=== PATIENT | male | born 1960 | race Caucasian/White ===

== ENCOUNTER → 2016-09-08 | Outpatient (CLI) | payer BC ==
[~2016-09-08] MED LIST: ACET-749 PO; ALBUAER19 INH; DIPH-437 PO; LVQ750 PO; OPTIRAY 320 IV PRN; VARE1PAK15 PO; VNTHFA/IN INH
[2016-09-08 15:55] LABS: BASO % 0.8 %; BASO ABS # 0.08 K/uL (0-0.2); EOS % 3.6 %; HEMATOCRIT 41.5 % (42-52); IG% 0.3 %; LYMPH % 40.7 %; LYMPH ABS # 3.96 K/uL (1.2-3.4); MEAN CELL VOLUME 85.7 fL (80-100); MEAN CORPUSCULAR HEMOGLOBIN 30.8 pg (25-34); MEAN PLATELET VOLUME 9.8 fL (7.4-10.4); MONO % 6.2 %; NEUT % 48.4 %; PLATELET COUNT 289 K/uL (130-400); RED BLOOD COUNT 4.84 M/uL (4.7-6.1); WHITE BLOOD COUNT 9.72 K/uL (4.8-10.8)
[2016-09-08 16:08] LABS: COMPLETE YES; MEAN CORPUSCULAR HGB CONC 35.9 g/dl (32-36)
[2016-09-08 16:19] LABS: ALB/GLOB RATIO 1.2 (0.9-2); ALKALINE PHOSPHATASE 57 U/L (45-117); ALT/SGPT 44 U/L (12-78); AST/SGOT 19 U/L (15-37); BLOOD UREA NITROGEN 16 mg/dl (7-18); BUN/CREATININE RATIO 20.6 (10-20); CALCIUM 8.8 mg/dl (8.5-10.1); CARBON DIOXIDE 28 mmol/L (21-32); CHLORIDE 104 mmol/L (98-107); CREATININE 0.78 mg/dl (0.60-1.40); GLUCOSE 89 mg/dl (70-99); POTASSIUM 3.8 mmol/L (3.5-5.1); SODIUM 139 mmol/L (136-145)
--- NOTE | 2016-09-08 16:48 | DIAGNOSTIC IMAGING REPORT ---
CT HEAD COMBO CT DOSE: 1074.96 mGy.cm CLINICAL HISTORY: Headache. Dizziness. History of seizure disorder. TECHNIQUE: Axial images of the head were obtained before and after intravenous administration 116 cc of Optiray 320 IV. COMPARISON STUDY: MRI of the brain October 26, [address] May 05, 2014. FINDINGS: No acute intracranial hemorrhage, midline shift or mass effect is present. Ventricular system is normal. Basilar cisterns are patent. There are no extra-axial collections. Slaughter-white differentiation is maintained. There are no findings to suggest acute dural sinus thrombosis or acute territorial infarct. There is moderate mucosal thickening of the sinuses, most pronounced within the ethmoid sinuses. There may be postsurgical findings within the ethmoid sinuses. No intracranial masses or pathologic enhancement is present. No calvarial abnormalities are present. Mastoid air cells are clear. IMPRESSION: 1. No acute intracranial findings. 2. No intracranial mass or pathologic enhancement. 3. Moderate sinus mucosal thickening, most pronounced within the ethmoid sinuses. Electronically signed by: Tal Flores M.D. 09/08/2016 4:47 PM Dictated Date/Time: 09/08/2016 4:43 PM
== END | disposition home or self-care (01) ==
LOC: C.CTS 15:26
PROVIDERS: ATTEND Internal Medicine Pulmonary Disease
DX: R51 Headache (principal); M54.2 Cervicalgia; Z86.69 Personal history of other diseases of the nervous system and sense organs

== ENCOUNTER 2017-02-07 22:06 | Inpatient (IN) | payer BC ==
[~2017-02-07] VITALS: Ht 172.7 cm; Wt 74.6 kg
[~2017-02-07 22:06] MED LIST changes: -LVQ750 PO; -OPTIRAY 320 IV PRN; -VARE1PAK15 PO; -VNTHFA/IN INH
[2017-02-07] MEDS ORDERED: ONDANSETRON INJ 2 MG/ML 2 ML VIAL IV STA (22:33)
[2017-02-07] MEDS ORDERED: NITROGLYCERIN 0.4 MG SL PER TAB CHARGE SL PRN (22:45)
[2017-02-07 22:52] LABS: BASO % 0.7 %; BASO ABS # 0.06 K/uL (0-0.2); COMPLETE YES; EOS % 4.8 %; HEMATOCRIT 42.1 % (42-52); IG% 0.2 %; LYMPH ABS # 4.12 K/uL (1.2-3.4); MEAN CELL VOLUME 87.3 fL (80-100); MEAN CORPUSCULAR HGB CONC 36.6 g/dl (32-36); MEAN PLATELET VOLUME 10.8 fL (7.4-10.4); MONO % 6.4 %; NEUT % 38.9 %; PLATELET COUNT 290 K/uL (130-400); RED BLOOD COUNT 4.82 M/uL (4.7-6.1); WHITE BLOOD COUNT 8.41 K/uL (4.8-10.8)
--- NOTE | 2017-02-07 22:52 | EMERGENCY ROOM VISIT NOTE ---
History Report prepared by Dustin: Raiza Springer Under the Supervision of: Dr. Brett Moreno M.D. First contact with patient: 22:25 Chief Complaint: CHEST PAIN Stated Complaint: CHEST PAIN Nursing Triage Summary: patient to ed via ALS for chest pain, states "it started up around nine, I was just sitting there watching tv and drinking iced tea and it came on all of a sudden. Like an elephant sitting on my chest, its a crushing, sharp pain." Patient took "full strength and baby aspirin", had 3 nitro, 4mg morphine and zofran by ALS, states "it took my pain from a 9 to a 6" denies cardiac hx, hx of COPD History of Present Illness The patient is a 56 year old male who presents to the Emergency Room with complaints of intermittent chest pain beginning 3 hours ago. The patient states that tonight he helped his daughters boyfriend change his breaks and cut the grass before having 3 beers. He reports that he ate dinner and was sitting on the couch when he was watching TV when he suddenly started feeling chest heaviness with intermittent sharp pain. He notes that he was feeling shortness of breath, nausea, and diaphoresis and took his inhaler for COPD and emphysema without relief of his symptoms. He complains of pain radiating to his shoulder and arm and notes that he had no relief with aspirin but did have relief with the nitroglycerin given en route to the hospital. The patient states that his pain is a 6/10 currently and it feels like an elephant is sitting on his chest. The patient denies any fever, chills, cough, congestion, back pain, and heavy lifting. He notes a history of aneurysm and states that his mother and father have extensive heart history. He denies any history of blood clots. Source of History: patient Onset: 3 hours ago Position: chest Quality: sharp, other (heaviness) Timing: intermittent Associated Symptoms: + diaphoresis, + SOB, + nausea, No fevers, No chills, No cough, No back pain Note: Pt complains of arm pain. The patient denies any congestion and heavy lifting. Review of Systems See HPI for pertinent positives and negatives. A total of ten systems were reviewed and were otherwise negative. Past Medical & Surgical Medical Problems: (1) Chest pain at rest (2) COPD (chronic obstructive pulmonary disease) (3) Emphysema (4) No significant past surgical history (5) Right wrist sprain (6) Right wrist sprain Family History Diabetes mellitus Hypertension Social History Smoking Status: Current Every Day Smoker Alcohol Use: occasionally Marital Status: Occupation Status: employed Current/Historical Medications Scheduled Albuterol Hfa (Ventolin Hfa), 2 PUFFS INH QID Scheduled PRN Diphenhydramine-Acetaminophen (Tylenol Pm), 1 TAB PO HS PRN for RESTLESSNESS Allergies Coded Allergies: Oxycodone (Verified Adverse Reaction, Intermediate, ITCHINESS, 02/07/17) Physical Exam Vital Signs Date Time Temp Pulse Resp B/P (MAP) Pulse Ox O2 Delivery O2 Flow Rate FiO2 02/08/17 01:01 36.6 77 19 99/62 94 02/08/17 00:59 77 99/62 94 Room Air 02/08/17 00:05 36.6 67 19 112/72 95 Room Air 02/07/17 22:16 36.7 82 30 122/53 93 Room Air 02/07/17 22:16 93 Room Air 02/07/17 22:16 95 Room Air 02/07/17 22:10 92 Physical Exam GENERAL: Awake, alert, well-appearing, uncomfortable, in no distress HENT: Normocephalic, atraumatic. Mucous membranes dry. EYES: Normal conjunctiva. Sclera non-icteric. NECK: Supple. No nuchal rigidity. FROM. No JVD. RESPIRATORY: Clear to auscultation. CARDIAC: Regular rate, normal rhythm. Extremities warm and well perfused. Pulses equal. ABDOMEN: Soft, non-distended. No tenderness to palpation. No rebound or guarding. No masses. RECTAL: Deferred. MUSCULOSKELETAL: Chest pain is reproducible on palpation on left chest wall. The back is symmetrical on inspection without obvious abnormality. There is no CVA tenderness to palpation. No joint edema. LOWER EXTREMITIES: Calves are equal size bilaterally and non-tender. No edema. No discoloration. Equal pulses NEURO: Normal sensorium. No sensory or motor deficits noted. SKIN: No rash or jaundice noted. Medical Decision & Procedures ER Provider Diagnostic Interpretation: X-ray: Per my interpretation, radiologist review. CHEST ONE VIEW PORTABLE FINDINGS: Cardiomediastinal silhouette normal. Interval development of bibasilar paramediastinal opacities, greater on the right. No large effusion or pneumothorax. Osseous structures normal. Gaseous distention of the stomach. IMPRESSION: 1. Bibasilar opacities could represent aspiration or infection with atelectasis considered less likely. Electronically signed by: Gregory Coleman M.D. 02/07/2017 10:57 PM Dictated Date/Time: 02/07/2017 10:55 PM Laboratory Results 02/07/17 21:42 Red Blood Count 4.82, Mean Corpuscular Volume 87.3, Mean Corpuscular Hemoglobin 32.0, Mean Corpuscular Hemoglobin Concent 36.6, Mean Platelet Volume 10.8, Neutrophils (%) (Auto) 38.9, Lymphocytes (%) (Auto) 49.0, Monocytes (%) (Auto) 6.4, Eosinophils (%) (Auto) 4.8, Basophils (%) (Auto) 0.7, Neutrophils # (Auto) 3.27, Lymphocytes # (Auto) 4.12, Monocytes # (Auto) 0.54, Eosinophils # (Auto) 0.40, Basophils # (Auto) 0.06 02/07/17 21:42 Test 02/07/17 21:42 White Blood Count 8.41 K/uL (4.8-10.8) Red Blood Count 4.82 M/uL (4.7-6.1) Hemoglobin 15.4 g/dL (14.0-18.0) Hematocrit 42.1 % (42-52) Mean Corpuscular Volume 87.3 fL (80-100) Mean Corpuscular Hemoglobin 32.0 pg (25-34) Mean Corpuscular Hemoglobin Concent 36.6 g/dl (32-36) Platelet Count 290 K/uL (130-400) Mean Platelet Volume 10.8 fL (7.4-10.4) Neutrophils (%) (Auto) 38.9 % Lymphocytes (%) (Auto) 49.0 % Monocytes (%) (Auto) 6.4 % Eosinophils (%) (Auto) 4.8 % Basophils (%) (Auto) 0.7 % Neutrophils # (Auto) 3.27 K/uL (1.4-6.5) Lymphocytes # (Auto) 4.12 K/uL (1.2-3.4) Monocytes # (Auto) 0.54 K/uL (0.11-0.59) Eosinophils # (Auto) 0.40 K/uL (0-0.5) Basophils # (Auto) 0.06 K/uL (0-0.2) RDW Standard Deviation 39.2 fL (36.4-46.3) RDW Coefficient of Variation 12.3 % (11.5-14.5) Immature Granulocyte % (Auto) 0.2 % Immature Granulocyte # (Auto) 0.02 K/uL (0.00-0.02) Erythrocyte Sedimentation Rate 2 mm/hr (0-14) Anion Gap 12.0 mmol/L (3-11) Est Creatinine Clear Calc Drug Dose 104.7 ml/min Estimated GFR () 118.6 Estimated GFR (Non- 102.3 BUN/Creatinine Ratio 12.2 (10-20) Calcium Level 9.2 mg/dl (8.5-10.1) C-Reactive Protein < 0.29 mg/dl (0-0.29) Laboratory results reviewed by me Medications Administered Medications (Trade) Dose Ordered Sig/Jasmyn Route Start Time Stop Time Status Last Admin Dose Admin Nitroglycerin (Nitrostat Tab) 0.4 mg Q5M PRN SL 02/07/17 22:45 02/08/17 00:33 DC 02/07/17 22:43 0.4 MG Ondansetron HCl (Zofran Inj) 4 mg NOW STAT IV 02/07/17 22:33 02/07/17 22:34 DC 02/07/17 22:43 4 MG Sodium Chloride 1,000 ml @ 999 mls/hr Q1H1M STAT IV 02/07/17 23:26 02/08/17 00:26 DC 02/07/17 23:42 999 MLS/HR Morphine Sulfate (MoRPHine SULFATE INJ) 2 mg NOW STAT IV 02/08/17 00:16 02/08/17 00:17 DC 02/08/17 00:24 2 MG Nitroglycerin/ Dextrose 250 ml @ 0 mls/hr Q0M IV 02/08/17 00:30 03/10/17 00:29 02/08/17 01:54 6 MLS/HR Lactated Ringer's 1,000 ml @ 125 mls/hr Q8H IV 02/08/17 01:00 02/09/17 00:59 02/08/17 01:49 125 MLS/HR ECG Indication: chest pain Rate (beats per minute): 81 Rhythm: normal sinus Findings: no acute ischemic change, other (normal axis) Comparison ECG Date: 12/03/14 Change: no significant change ED Course 5: The patient was evaluated in room B10. A complete history and physical exam was performed. 2233: Zofran Inj 4mg IV. 5: Nitroglycerin 0.4mg PRN SL Chest pain. 6: Sodium Chloride 1000 ml @ 999 mls/hr IV. 0002: Discussed the patient's case [place]za [place] [facility] [place] The patient will be evaluated for further treatment and disposition. 0010: Upon reexamination, the patient was doing well. I discussed the test results and treatment plan with the patient. The patient will be evaluated for further management. Medical Decision I reviewed the patient's past medical history, medications, and the nursing notes as described above. Differential diagnosis includes ACS, PE, pneumonia, bronchitis, costochondritis , pericarditis. Patient is a 56-year-old gentleman with a past medical history of smoking and COPD presents to emergency department with acute onset chest pain or sensation of heaviness in his left chest starting around 9 PM per history of present illness. Upon arrival the patient appears mildly uncomfortable but reports improvement of his pain after receiving nitroglycerin and aspirin by EMS. Otherwise the patient is afebrile with stable vital signs. Denies any recent illness, fevers chills cough congestion. EKG was unremarkable without signs of acute ischemia. Negative Spotick sign. Troponin negative 1. WBC within normal limits. Chest x-ray likely atelectasis in the setting of the patient being afebrile with normal WBC. During the patient's age story and risk factors he is a heart score 4 with moderate risk and thus the patient was admitted for ACS rule out. Patient admitted to medicine service. Medication Reconcilliation Current Medication List: was personally reviewed by [place] Blood Pressure Screening Patient's blood pressure: Normal blood pressure Blood pressure disposition: Did not require urgent referral Consults Time Called: 1714 Consulting Physician: Dr. Souza - [facility] [place]ed Call: 1 Discussed the patient's case with [place]. Souza [place] [facility] [place] [place] The patient will be evaluated for further treatment and disposition. Impression Primary Impression: Left sided chest pain Scribe Attestation The scribe's documentation has been prepared under my direction and personally reviewed by me in its entirety. I confirm that the note above accurately reflects all work, treatment, procedures, and medical decision making performed by me. Departure Information Dispostion Being Evaluated By Hospitalist Referrals Blayne Machado M.D. (PCP) Patient Instructions My [facility]
--- NOTE | 2017-02-07 22:58 | DIAGNOSTIC IMAGING REPORT ---
CHEST ONE VIEW PORTABLE CLINICAL HISTORY: 56 years-old Male presenting with CHEST PAIN. TECHNIQUE: Portable upright AP view of the chest was obtained. COMPARISON: 03/13/2012. FINDINGS: Cardiomediastinal silhouette normal. Interval development of bibasilar paramediastinal opacities, greater on the right. No large effusion or pneumothorax. Osseous structures normal. Gaseous distention of the stomach. IMPRESSION: 1. Bibasilar opacities could represent aspiration or infection with atelectasis considered less likely. Electronically signed by: Gregory Coleman M.D. 02/07/2017 10:57 PM Dictated Date/Time: 02/07/2017 10:55 PM
[2017-02-07] MEDS ORDERED: VNTHFA/IN INH (23:00)
[2017-02-07 23:19] LABS: BLOOD UREA NITROGEN 9 mg/dl (7-18); BUN/CREATININE RATIO 12.2 (10-20); CALCIUM 9.2 mg/dl (8.5-10.1); CARBON DIOXIDE 24 mmol/L (21-32); CHLORIDE 107 mmol/L (98-107); CREATININE 0.78 mg/dl (0.60-1.40); GLUCOSE 105 mg/dl (70-99); POTASSIUM 3.6 mmol/L (3.5-5.1); SODIUM 143 mmol/L (136-145)
[2017-02-07] MEDS ORDERED: SODIUM CHLORIDE 0.9% 1000ML 1,000 ML IV STA (23:26)
[2017-02-08] VITALS (19 sets, daily range): BP systolic 95–119; BP diastolic 63–78; PULSE 61–78; TEMP 36.5–36.9; O2SAT 91–98; Ht 172.7 cm; Wt 74.6 kg
[2017-02-08] MEDS ORDERED: MoRPHine SULFATE 2 MG/ML CARP IV STA (00:16)
[2017-02-08] MEDS ORDERED: MoRPHine SULFATE 2 MG/ML CARP IV PRN ×3 (00:30→16:30)
[2017-02-08] MEDS ORDERED: ACETAMINOPHEN 325 MG TAB PO PRN (00:30)
[2017-02-08] MEDS ORDERED: POLYETHYLENE (MIRALAX) 17 GM PACK PO PRN (00:30)
[2017-02-08] MEDS ORDERED: NITROGLYCERIN/D5W 100 MCG/ML 250 ML IV SCH (00:30)
[2017-02-08] MEDS ORDERED: NITROGLYCERIN 0.4 MG SL PER TAB CHARGE SL PRN (00:30)
[2017-02-08] MEDS ORDERED: ONDANSETRON INJ 2 MG/ML 2 ML VIAL IV PRN (00:30)
[2017-02-08] MEDS ORDERED: ALUMINUM/MAGNESIUM/SIMETH (MAALOX MAX) 30 ML UDC PO PRN (00:30)
[2017-02-08] MEDS ORDERED: MAGNESIUM HYDROXIDE SUSP 30 ML UDC PO PRN (00:30)
[2017-02-08 00:45] LABS: C-REACTIVE PROTEIN < 0.29 mg/dl (0-0.29)
[2017-02-08] MEDS ORDERED: NITROGLYCERIN OINT 2% 1GM PACKET EXT STA (00:47)
--- NOTE | 2017-02-08 00:53 | History and Physical ---
History & Physical Date & Time of Service: Feb 08, 2017 at 00:35 Chief Complaint: Chest Pain Primary Care Physician: Blayne Machado M.D. History of Present Illness Source: patient, spouse Mr Nicholas is a 56 yo M, with significant family hx of cardiac disease and is an active smoker x 40 years, who presents with sudden onset chest pain around 8:30 pm (4 hours ago). 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 Later in the evening, he was sitting at home watching TV and noticed chest pain occurred suddenly, on the left side of his chest, and went down his left arm. He felt nauseated but did not vomit. He had two aspirin and did not feel relief. He called the ambulance, who gave him nitro and his pain was better. Currently, his pain is recurring and severe. He describes it as something laying on his chest. He feels like he is in agony. He was given 2mg morphine and feels somewhat better. He denies any pain radiating to the back. He has COPD but does not feel short of breath. Past Medical/Surgical History Medical Problems: (1) COPD (chronic obstructive pulmonary disease) Status: Chronic (2) Emphysema Status: Chronic (3) No significant past surgical history Status: Resolved (4) Right wrist sprain Status: Resolved (5) Right wrist sprain Status: Resolved Family History Diabetes mellitus Hypertension Strong FHx of cardiac disease - father had quadruple bypass, mother 5 y ago from massive [place] Social History Smoking Status: Current Every Day Smoker (.5-1 pack per day) Marital Status: Occupational Status: employed Immunizations History of Influenza Vaccine: No History of Tetanus Vaccine?: Yes Tetanus Immunization Date: Dec 18, 2008 History of Pneumococcal: No History of Hepatitis B Vaccine: Unknown Hepatitis Immunization Date: Jan 11, 1991 Multi-Drug Resistant Organisms History of MDRO: Yes Type of MDRO: MRSA Allergies Coded Allergies: Oxycodone (Verified Adverse Reaction, Intermediate, ITCHINESS, 02/07/17) Home Medications Scheduled Albuterol Hfa (Ventolin Hfa), 2 PUFFS INH QID Scheduled PRN Diphenhydramine-Acetaminophen (Tylenol Pm), 1 TAB PO HS PRN for RESTLESSNESS Review of Systems See HPI for pertinent positives & negatives. A total of 10 systems reviewed and were otherwise negative. Physical Exam Vital Signs Date Time Temp Pulse Resp B/P (MAP) Pulse Ox O2 Delivery O2 Flow Rate FiO2 02/08/17 00:05 36.6 67 19 112/72 95 Room Air 02/07/17 22:16 36.7 82 30 122/53 93 Room Air 02/07/17 22:16 93 Room Air 02/07/17 22:16 95 Room Air 02/07/17 22:10 92 General Appearance: WD/WN, + moderate distress Head: normocephalic, atraumatic Eyes: normal inspection, PERRL ENT: hearing grossly normal Neck: supple, no JVD Respiratory/Chest: lungs clear, normal breath sounds, no respiratory distress Cardiovascular: regular rate, rhythm, no murmur, normal peripheral pulses Abdomen/GI: non tender, soft Back: no CVA tenderness, no muscle spasm Extremities/Musculoskelatal: no calf tenderness, no pedal edema Neurologic/Psych: alert, normal mood/affect, oriented x 3 Skin: no rash Diagnostics Laboratory Results Results Past 24 Hours Test 02/07/17 21:42 02/08/17 00:28 Range/Units White Blood Count 8.41 4.8-10.8 K/uL Red Blood Count 4.82 4.7-6.1 M/uL Hemoglobin 15.4 14.0-18.0 g/dL Hematocrit 42.1 42-52 % Mean Corpuscular Volume 87.3 80-100 fL Mean Corpuscular Hemoglobin 32.0 25-34 pg Mean Corpuscular Hemoglobin Concent 36.6 32-36 g/dl Platelet Count 290 130-400 K/uL Mean Platelet Volume 10.8 7.4-10.4 fL Neutrophils (%) (Auto) 38.9 % Lymphocytes (%) (Auto) 49.0 % Monocytes (%) (Auto) 6.4 % Eosinophils (%) (Auto) 4.8 % Basophils (%) (Auto) 0.7 % Neutrophils # (Auto) 3.27 1.4-6.5 K/uL Lymphocytes # (Auto) 4.12 1.2-3.4 K/uL Monocytes # (Auto) 0.54 0.11-0.59 K/uL Eosinophils # (Auto) 0.40 0-0.5 K/uL Basophils # (Auto) 0.06 0-0.2 K/uL RDW Standard Deviation 39.2 36.4-46.3 fL RDW Coefficient of Variation 12.3 11.5-14.5 % Immature Granulocyte % (Auto) 0.2 % Immature Granulocyte # (Auto) 0.02 0.00-0.02 K/uL Sodium Level 143 136-145 mmol/L Potassium Level 3.6 3.5-5.1 mmol/L Chloride Level 107 98-107 mmol/L Carbon Dioxide Level 24 21-32 mmol/L Anion Gap 12.0 3-11 mmol/L Blood Urea Nitrogen 9 7-18 mg/dl Creatinine 0.78 0.60-1.40 mg/dl Est Creatinine Clear Calc Drug Dose 104.7 ml/min Estimated GFR () 118.6 Estimated GFR (Non- 102.3 BUN/Creatinine Ratio 12.2 10-20 Random Glucose 105 70-99 mg/dl Calcium Level 9.2 8.5-10.1 mg/dl Troponin I < 0.015 0-0.045 ng/ml Diagnostic Radiology CXR IMPRESSION: 1. Bibasilar opacities could represent aspiration or infection with atelectasis considered less likely. EKG SR, 61bpm - NO ST elevation Mild ST dep in inferior leads - was present on arrival and in 2014 Impression Assessment and Plan 56 yo M with severe L sided chest pain. DDx of his chest pain would include: severe COPD exacerbation, but this is unlikely as he is not hypoxic, PE - though he is not hypoxic or tachypneic and has no other risk factors, or dissection - his pulses are equal, and pain does not radiate to the back. With FHx, smoking, and characteristics of pain, will treat as NSTEMI for now, with low threshold to call heart alert if chest pain does not improve. Unstable angina - Received aspirin en route - Received nitro SL en route - Will start on Nitro drip, aiming to get him chest pain free - 2mg IV Morphine q1h - Heparin drip - [place] [facility] [place] 12:40 pm - EKG in AM - Echo in AM - Trend cardiac enzymes - Due to Nitro drip requiring titration, pt to be admitted to ICU. OSWALDO Ventura, informed. IF PATIENT HAS PERSISTENT CHEST PAIN, PLEASE NOTIFY A PROVIDER pager [phone] COPD - Duonebs - Smoking cessation consult VTE: Heparin drip CODE STATUS: Full DISPO: ICU Resident Physician Supervision Note: I was present with Dr. Joseph during the history and exam. I discussed the case with the resident and agree with the findings and plan as documented in the note. Any exceptions or clarifications are listed here: 56 y/o M Hx COPD - smoker - family Hx CAD. Pt presents with persistent severe L CP OE AAO x 3 S1,2 R CTAB NT, ND No CCE P: Placed on full dose anticoagulation, ASA - second trop pending - initial EKG is not consistent with a STEMI Cardio contacted and pt transferred to ICU on NTG drip If pain does not resolve pt may need an urgent cath Documented By: Jayce Souza Level of Care Telemetry Resuscitation Status FULL RESUSCITATION VTE Prophylaxis VTE Risk Assessment Done? Y/N: Yes Risk Level: Moderate Given or contraindicated: Other Anticoagulation Resident Tracking Resident Involvement: Resident Care Provided Care Provided: Adult Hospital Medicine
[2017-02-08] MEDS ORDERED: HEPARIN 25,000 UNIT/500ML D5W 500 ML IV PRN (01:00)
--- NOTE | 2017-02-08 01:19 | Critical Care Consultation ---
Critical Care Consultation Date of Consultation: Feb 08, 2017. Attending Physician: Dr. Jayce Souza Reason for Consultation: Intermittent severe chest pain requiring titration of nitroglycerin infusion History of Present Illness Franklin Nicholas is a 56-year-old male whose presented to the emergency department this morning for 10 out of 10 chest pain radiating down his left arm into his wrist and complaining of bouts of chest tightness and increasing pressure. Per him this started about 8:30; he states he was able to time this according to a TV show. During this time he did take both a baby aspirin and a Ana aspirin prior to arrival. He states he has a significant past medical history of a mother, maternal grandfather, and multiple paternal grandparents with either coronary artery disease causing bypass grafting or massive myocardial infarctions causing . He himself has never been diagnosed with diabetes in fact suffers from hypoglycemia at times. He does have a 1/2-1 pack per day history for approximately 40 years. He denies any prior chest pain similar to tonight or any other cardiac history for himself. Pt denies pain changing or increasing with breathing. No calf pain or recent periods of immobility. Per him he has never been diagnosed with hypertension, but does follow with Dr. Machado in Pulmonary Medicine for COPD/emphysema requiring Ventolin inhaler. He states that he has at some point failed breathing exams at work for respirators. He does state that he has undergone breathing exams with his physician. No recent PFTs on file, last noted in 2012. CXR in ED demonstrated what appears to be early onset bilateral consolidation in lower lung gil. Patient states that in the emergency department he received nitroglycerin which helped to lessen his chest pain and pressure. Upon my visit he states his severity is a 3 out of 10; however, he states that he feels the pressure returning. During my examination his nitroglycerin infusion had just been started. When pt demonstrates to me that his heart hurts and he grabs for the superior aspect of his thorax. Chest in that area is tender, but does not elicit the same pain. His past medical history is significant for a prior seizure disorder with no ongoing symptoms/treatment, an unusual tumor of the spinal cord, and prior sinus thrombosis. Patient was last seen in August and was encouraged by backup sawyer to visit with Dr. Stewart for neuro followup. Patient denies fever, chills, malaise, dizziness/lightheadedness. Patient denies cough, difficulty breathing, shortness of breath, ongoing nausea. However he does state that when his pain was 10 out of 10 he felt nauseous but did not vomit. He denies GI upset or change in bowel or bladder habits. Past Medical/Surgical History Medical Problems: COPD (chronic obstructive pulmonary disease) Emphysema No significant past surgical history Right wrist sprain History of prior seizure disorder History of spinal tumor History of sinus thrombosis Neck pain Chronic sinusitis Headache Muscle spasm History of concussion without loss of consciousness History of herpes zoster History of MRSA History of cellulitis of the rectum Past surgical history History of biopsy of the spinal cord History of knee incision and drainage of infected bursa History of open treatment of clavicular fracture History of colonoscopy and EGD Family History Diabetes mellitus Hypertension Strong family history of coronary artery disease, bypass grafting, myocardial infarction Social History Smoking Status: Current Every Day Smoker (.5-1 pack per day x 40yrs) Alcohol Use: socially (patient estimates approximate 6 pack per month) Marital Status: Housing Status: lives with family Occupation Status: employed Allergies Coded Allergies: Oxycodone (Verified Adverse Reaction, Intermediate, ITCHINESS, 02/07/17) Home Medications Scheduled Albuterol Hfa (Ventolin Hfa), 2 PUFFS INH QID Scheduled PRN Diphenhydramine-Acetaminophen (Tylenol Pm), 1 TAB PO HS PRN for RESTLESSNESS Current Inpatient Medications Current Inpatient Medications Medications (Trade) Dose Ordered Sig/Jasmyn Route Start Time Stop Time Status Last Admin Dose Admin Acetaminophen (Tylenol Tab) 650 mg Q4H PRN PO 02/08/17 00:30 03/10/17 00:29 Al Hydrox/Mg Hydrox/Simethicone (Maalox Max Susp) 15 ml Q4H PRN PO 02/08/17 00:30 03/10/17 00:29 Magnesium Hydroxide (Milk Of Magnesia Susp) 30 ml Q12H PRN PO 02/08/17 00:30 03/10/17 00:29 Ondansetron HCl (Zofran Inj) 4 mg Q6H PRN IV 02/08/17 00:30 03/10/17 00:29 Nitroglycerin (Nitrostat Tab) 0.4 mg UD PRN SL 02/08/17 00:30 03/10/17 00:29 Nitroglycerin (Nitroglycerin 2% Oint) 1 inch Q6 EXT 02/08/17 06:00 03/10/17 05:59 UNV Polyethylene (Miralax Powder Packet) 17 gm DAILY PRN PO 02/08/17 00:30 03/10/17 00:29 Heparin Sodium/ Dextrose 1 ea NOW STAT N/A 02/08/17 00:30 02/08/17 00:31 UNV Nitroglycerin/ Dextrose 250 ml @ 0 mls/hr Q0M IV 02/08/17 00:30 03/10/17 00:29 Heparin Sodium/ Dextrose 500 ml @ 25 mls/hr Q20H PRN IV 02/08/17 01:00 03/10/17 00:59 Albuterol (Ventolin Hfa Inhaler) 2 puffs QID INH 02/08/17 09:00 03/10/17 08:59 UNV Morphine Sulfate (MoRPHine SULFATE INJ) 2 mg Q1H PRN IV 02/08/17 01:00 02/22/17 00:59 Lactated Ringer's 1,000 ml @ 125 mls/hr Q8H IV 02/08/17 01:00 02/09/17 00:59 Albuterol/ Ipratropium (Duoneb) 3 ml QIDR INH 02/08/17 08:00 03/10/17 07:59 UNV Review of Systems 12 systems reviewed and negative other than previously mentioned in the HPI. Physical Exam Date Time Temp Pulse Resp B/P (MAP) Pulse Ox O2 Delivery O2 Flow Rate FiO2 02/08/17 01:01 36.6 77 19 99/62 94 02/08/17 00:59 77 99/62 94 Room Air 02/08/17 00:05 36.6 67 19 112/72 95 Room Air 02/07/17 22:16 36.7 82 30 122/53 93 Room Air 02/07/17 22:16 93 Room Air 02/07/17 22:16 95 Room Air 02/07/17 22:10 92 Vital Signs - as noted Laboratory Data - as noted Physical Exam: General - NAD, Resting in bed and speaking easily to me Eyes - PERRL, EOMI No icterus, gaze conjugate ENT - Mucosa moist, no lesions or candidiasis Neck - Supple, trachea midline, no masses or lymphadenopathy, no JVD or bruits Lungs - No paradoxical chest wall movement, clear to auscultation bilaterally, diminished in lower left lung gil without wheezes, rales, or rhonchi Heart - Reg rate and rhythm, No murmur, rubs, clicks, or gallops appreciated Abdomen - BS present, no bruits noted, tympanic to percussion, soft, nontender, nondistended, no organomegaly Extremities - No edema, pedal pulses intact Neuro - A&O x 4 Strength extremities equal and appropriate bilaterally Reflexes: Normal and equal CN:PERRL, EOMI, no facial asymmetry, uvula/tongue midline Laboratory Results Last 24 Hours Test 02/07/17 21:42 White Blood Count 8.41 K/uL Red Blood Count 4.82 M/uL Hemoglobin 15.4 g/dL Hematocrit 42.1 % Mean Corpuscular Volume 87.3 fL Mean Corpuscular Hemoglobin 32.0 pg Mean Corpuscular Hemoglobin Concent 36.6 g/dl Platelet Count 290 K/uL Mean Platelet Volume 10.8 fL Neutrophils (%) (Auto) 38.9 % Lymphocytes (%) (Auto) 49.0 % Monocytes (%) (Auto) 6.4 % Eosinophils (%) (Auto) 4.8 % Basophils (%) (Auto) 0.7 % Neutrophils # (Auto) 3.27 K/uL Lymphocytes # (Auto) 4.12 K/uL Monocytes # (Auto) 0.54 K/uL Eosinophils # (Auto) 0.40 K/uL Basophils # (Auto) 0.06 K/uL RDW Standard Deviation 39.2 fL RDW Coefficient of Variation 12.3 % Immature Granulocyte % (Auto) 0.2 % Immature Granulocyte # (Auto) 0.02 K/uL Sodium Level 143 mmol/L Potassium Level 3.6 mmol/L Chloride Level 107 mmol/L Carbon Dioxide Level 24 mmol/L Anion Gap 12.0 mmol/L Blood Urea Nitrogen 9 mg/dl Creatinine 0.78 mg/dl Est Creatinine Clear Calc Drug Dose 104.7 ml/min Estimated GFR () 118.6 Estimated GFR (Non- 102.3 BUN/Creatinine Ratio 12.2 Random Glucose 105 mg/dl Calcium Level 9.2 mg/dl Troponin I < 0.015 ng/ml C-Reactive Protein < 0.29 mg/dl Diagnostic Results CHEST ONE VIEW PORTABLE CLINICAL HISTORY: 56 years-old Male presenting with CHEST PAIN. TECHNIQUE: Portable upright AP view of the chest was obtained. COMPARISON: 03/13/2012. FINDINGS: Cardiomediastinal silhouette normal. Interval development of bibasilar paramediastinal opacities, greater on the right. No large effusion or pneumothorax. Osseous structures normal. Gaseous distention of the stomach. IMPRESSION: 1. Bibasilar opacities could represent aspiration or infection with atelectasis considered less likely. Electronically signed by: Gregory Coleman M.D. 02/07/2017 10:57 PM Dictated Date/Time: 02/07/2017 10:55 PM Assessment & Plan (1) Chest pain at rest (2) Emphysema Reason Critically Ill: Patient is an 56-year-old male who is transferred to the ICU for intractable chest pain with negative troponin and unremarkable EKG on Nitroglycerin & Heparin Infusions. PLAN: Neuro: * Pain severity currently decreased from 04/18-3/10 * Titrate Nitroglycerin as blood pressure allows with increasing pain * A&O x 4, no unilateral neurologic changes noted * Monitor for change * Pt wish for help with tobacco addiction CV: * Significant family medical history; patient without prior cardiac history * Dr. Bynum consulted and spoke with Dr. Souza * Low threshold to recontact Dr. Bynum for increasing chest pain or changes * Nitroglycerin drip to titrate to pain level * Heparin infusion started per Dr. Bynum recommendation * Echo ordered for AM * EKG with changes in chest pain * Trend troponin; Negative x 2 * Monitor on telemetry Resp: * Supplemental oxygen as required * Wells Criteria 3points, Unlikely PE * Will order Venous Duplex of Lower Extremities; Pt currently being treated with Heparin Infusion * No "pleuritic" aspect to chest pain, tachycardia, dyspnea, cough or recent immobilities. * DuoNeb and Ventolin in place * Patient currently without signs/symptoms of infective pulmonary process * Will hold broad-spectrum antibiotics currently * Procalcitonin pending Fluids/Renal: * Lactated Ringer's @ 125mLd/Hr * Monitor I's and O's * Replete electrolytes as indicated ID: * Chest x-ray as noted above * Follow closely for possible need of antibiotics * Procalcitonin pending * No leukocytosis or fever GI/Nutrition: * Nausea reported with chest pain * Zofran PRN * NPO except ice chips Heme: * H&H; platelets stable * No gross signs of bleeding * Monitor anticoagulation per heparin drip protocol * SCDs Ordered Endocrine: * No known diagnosis of diabetes or thyroid disorder * Will check TSH with morning labs * Accu-Checks per protocol, started insulin infusion for 2 blood sugars greater than 180 CCT: 37 Minutes; This time is exclusive of all separately billable procedures. Thank you for involving us in the care of this patient. Please refer to Dr. Cresencio Espinal's addendum for further recommendations. I have personally evaluated and examined this patient. I agree with assessment and plan of Ev Husain PA-C. Reviewed on rounds this morning, negative troponins 3. Down titrated nitroglycerin, return of pain, checked EKG unchanged. Doubt cardiac ischemia echo performed awaiting formal report. Obtain CT scan chest to rule out aortic dissection, patient reports pain radiated into back. Found evidence suggestive of community-acquired pneumonia and probable pleuritic chest pain. Stable for downgraded out of ICU to regular nursing floor
[2017-02-08] MEDS: LACTATED RINGER'S 1000ML 1,000 ML IV SCH ×2 (01:49→08:59)
[2017-02-08] MEDS: NITROGLYCERIN OINT 2% 1GM PACKET EXT SCH ×3 (02:00→12:38)
[2017-02-08 02:55] LABS: PROTHROMBIN TIME (PATIENT) 10.9 SECONDS (9.0-12.0)
[2017-02-08] MEDS ORDERED: NICOTINE 7 MG/24 HR TDSY TD SCH (04:00)
[2017-02-08 06:32] LABS: MEAN CELL VOLUME 88.8 fL (80-100); MEAN CORPUSCULAR HEMOGLOBIN 30.6 pg (25-34); MEAN CORPUSCULAR HGB CONC 34.5 g/dl (32-36); MEAN PLATELET VOLUME 10.3 fL (7.4-10.4); PLATELET COUNT 244 K/uL (130-400); RED BLOOD COUNT 4.28 M/uL (4.7-6.1); WHITE BLOOD COUNT 8.01 K/uL (4.8-10.8)
[2017-02-08 06:46] LABS: BLOOD UREA NITROGEN 11 mg/dl (7-18); BUN/CREATININE RATIO 15.2 (10-20); CALCIUM 8.3 mg/dl (8.5-10.1); CARBON DIOXIDE 26 mmol/L (21-32); CHLORIDE 111 mmol/L (98-107); GLUCOSE 118 mg/dl (70-99); MAGNESIUM 2.2 mg/dl (1.8-2.4); POTASSIUM 3.7 mmol/L (3.5-5.1); SODIUM 142 mmol/L (136-145)
[2017-02-08 06:49] LABS: ESTIMATED AVERAGE GLUCOSE 114 mg/dl; HA1C FLAG Normal (Normal)
[2017-02-08 06:58] LABS: CHOLESTEROL 115 mg/dl (0-200); CHOLESTEROL/HDL RATIO 5.2; HDL CHOLESTEROL 22 mg/dl; LDL CHOLESTEROL CALCULATED 29 mg/dl; PHOSPHORUS 2.8 mg/dl (2.5-4.9); TRIGLYCERIDES 319 mg/dl (0-150); VERY LOW DENSITY LIPOPROT CALC 64 mg/dl
[2017-02-08] MEDS ORDERED: ALBUT/IPRATROP 3MG/0.5MG NEB 3 ML VIAL INH SCH (08:00)
--- NOTE | 2017-02-08 08:50 | ECHOCARDIOGRAM REPORT ---
*NOTICE TO RECEIVING DEMOCRAT AGENCY This information is strictly Confidential and protected under [place] law. [place] law prohibits you from making any further disclosure of this information unless further disclosure is expressly permitted by the written consent of the person to whom it pertains or is authorized by law. A general authorization for the release of medical or other information is not sufficient for this purpose. Hospital accepts no responsibility if the information is made available to any other person, INCLUDING THE PATIENT. Interpretation Summary * Name: FESTUS OCONNELL Study Date: 02/08/2017 06:25 AM BP: 106/64 mmHg * Patient Location: .[facility]\S\E105\S\1 HR: 75 * : 1960 (M/d/yyyy) Gender: Male Height: 68 in * Age: 56 yrs Ethnicity: CA Weight: 160 lb * Ordering Physician: Leslee Joseph * Referring Physician: Self, Referred * Performed By: Caitlin Singer RDCS * * Reason For Study: CHEST PAIN * BSA: 1.9 m2 * -- Conclusions -- * 1. Normal left ventricular size and systolic function. EF 60-65%. No regional wall motion abnormalities. No left ventricular hypertrophy. Type 2 diastolic dysfunction. * 2. No significant valvular abnormalities. * 3. No prior study available for comparison. Procedure Details * A complete two-dimensional transthoracic echocardiogram was performed (2D, M-mode, Doppler and color flow Doppler). Left Ventricle * The left ventricle is normal in size. * There is normal left ventricular wall thickness. * Ejection Fraction = 60-65%. * Left ventricular systolic function is normal. * No regional wall motion abnormalities noted. Right Ventricle * The right ventricle is normal in size and function. * The right ventricular systolic function is normal as assessed by tricuspid annular plane systolic excursion (TAPSE) (normal >1.5 cm). Atria * The left atrial size is normal. * Right atrial size is normal. * There is no evidence of atrial septal defect, but resolution does not allow assessment for a patent foramen ovale. Mitral Valve * The mitral valve leaflets appear normal. There is no evidence of stenosis, fluttering, or prolapse. * There is trace mitral regurgitation. Tricuspid Valve * The tricuspid valve is not well visualized, but is grossly normal. * There is no tricuspid stenosis. * Significant tricuspid regurgitation is absent. Aortic Valve * The aortic valve is normal in structure and function. * The aortic valve is trileaflet. * No hemodynamically significant valvular aortic stenosis. * No aortic regurgitation is present. Pulmonic Valve * The pulmonary valve is inadequately visualized, but the Doppler data is adequate for interpretation. * There is no pulmonic valvular stenosis. * There is no significant pulmonary regurgitation. Great Vessels * The aortic root is normal size. * Aortic arch of normal dimension. Pericardium/Pleural * There is no pericardial effusion. Great Vessels * Normal inferior vena cava size and collapsability with sniff indicates a normal right atrial pressure of 3 mmHg MMode 2D Measurements and Calculations IVSd 0.99 cm IVSs 1.4 cm LVIDd 4.7 cm LVIDs 3.2 cm LVPWd 0.91 cm LVPWs 1.5 cm IVS/LVPW 1.1 FS 32.7 % EDV(Teich) 101.9 ml ESV(Teich) 39.7 ml EF(Teich) 61.0 % EDV(cubed) 103.2 ml ESV(cubed) 31.5 ml EF(cubed) 69.5 % % IVS thick 38.3 % % LVPW thick 67.2 % LV mass(C)d 153.7 grams LV mass(C)dI 82.7 grams/m\S\2 LV mass(C)s 159.6 grams LV mass(C)sI 85.9 grams/m\S\2 SV(Teich) 62.2 ml SI(Teich) 33.5 ml/m\S\2 SV(cubed) 71.7 ml SI(cubed) 38.6 ml/m\S\2 Ao root diam 3.4 cm Ao root area 9.2 cm\S\2 LA dimension 3.1 cm asc Aorta Diam 3.3 cm LA/Ao 0.92 LVAd ap4 33.0 cm\S\2 LVLd ap4 8.3 cm EDV(MOD-sp4) 107.4 ml EDV(sp4-el) 111.6 ml LVAs ap4 17.8 cm\S\2 LVLs ap4 6.8 cm ESV(MOD-sp4) 41.0 ml ESV(sp4-el) 39.5 ml EF(MOD-sp4) 61.8 % EF(sp4-el) 64.6 % LVAd ap2 31.7 cm\S\2 LVLd ap2 8.7 cm EDV(MOD-sp2) 93.4 ml EDV(sp2-el) 98.1 ml LVAs ap2 17.3 cm\S\2 LVLs ap2 7.1 cm ESV(MOD-sp2) 37.1 ml ESV(sp2-el) 35.9 ml EF(MOD-sp2) 60.3 % EF(sp2-el) 63.4 % LVLd %diff 2.8 % EDV(MOD-bp) 101.9 ml LVLs %diff 6.4 % ESV(MOD-bp) 38.9 ml EF(MOD-bp) 61.8 % SV(MOD-sp4) 66.4 ml SI(MOD-sp4) 35.7 ml/m\S\2 SV(MOD-sp2) 56.3 ml SI(MOD-sp2) 30.3 ml/m\S\2 SV(MOD-bp) 63.0 ml SI(MOD-bp) 33.9 ml/m\S\2 SV(sp4-el) 72.1 ml SI(sp4-el) 38.8 ml/m\S\2 SV(sp2-el) 62.2 ml SI(sp2-el) 33.4 ml/m\S\2 Doppler Measurements and Calculations MV E max paula 68.4 cm/sec MV A max paula 54.3 cm/sec MV E/A 1.3 MV dec time 0.25 sec Ao V2 max 107.7 cm/sec Ao max PG 4.6 mmHg Ao max PG (full) 0.50 mmHg LV V1 max PG 4.1 mmHg LV V1 max 101.7 cm/sec TV E max paula 70.0 cm/sec PA V2 max 62.8 cm/sec PA max PG 1.6 mmHg
[2017-02-08] MEDS: ALBUTEROL HFA 8 GM INHALER INH SCH ×2 (08:59→12:34)
[2017-02-08] MEDS: ACETAMINOPHEN 500 MG TAB PO PRN (08:59)
[2017-02-08] MEDS ORDERED: ALBUT/IPRATROP 3MG/0.5MG NEB 3 ML VIAL INH PRN (09:00)
[2017-02-08 10:02] LABS: BUN/CREATININE RATIO 15.6 (10-20); CALCIUM 8.6 mg/dl (8.5-10.1); CREATININE 0.64 mg/dl (0.60-1.40); POTASSIUM 3.9 mmol/L (3.5-5.1)
[2017-02-08 10:04] LABS: ALB/GLOB RATIO 1.3 (0.9-2)
[2017-02-08] MEDS ORDERED: OPTIRAY 320 IV PRN (10:45)
--- NOTE | 2017-02-08 11:11 | Critical Care Progress Note ---
Critical Care Progress Note Date of Service Feb 08, 2017. ICU Day ICU Day Number: [address] Espinal Subjective Patient continues to report L-sided intermittent 6/10 pleuritic Chest pain radiating to left arm and back. Pain typically lasts up to 15 minutes. Patient feels like Nitroglycerine has given him some relief but reports headache he attributes to the medication. Objective GENERAL: alert, well appearing, well nourished, no distress, non-toxic EYE EXAM: normal conjunctiva, PERRL and EOM's grossly intact NECK: supple, no nuchal rigidity, no adenopathy, non-tender LUNGS: Clear to auscultation. Normal chest wall mechanics HEART: no murmurs, S1 normal and S2 normal ABDOMEN: abdomen soft, non-tender, normo-active bowel sounds, no masses, no rebound or guarding. SKIN: no rashes and no bruising UPPER EXTREMITIES: upper extremities are grossly normal. LOWER EXTREMITIES: No pitting edema. NEURO EXAM: Normal sensorium, cranial nerves II-XII grossly intact, normal speech, no gross weakness of arms, no gross weakness of legs. Current SOFA Score SOFA Score Response (Comments) Value Platelets (x10) > 150 0 Bilirubin (mg/dL) < 1.2 0 [place] Coma Score 15 0 Level of Hypotension No Hypotension 0 Creatinine (mg/dL) < 1.2 0 Total 0 Assessment & Plan 56 yo M who presented with intermittent L sided pleuritic Chest Pain, with reported relief from NG prior to arrival with unremarkable EKG, unremarkable Troponin, CXR showing Bibasilar opacities, currently afebrile, stable, admitted to ICU on Nitroglycerine drip [employer]/Neuro GCS: 15 pain control: D/C Nitroglycerine Drip, Start Tylenol PRN q8 Cardiovascular: Chest Pain, unremarkable EKG, negative Troponin x2 Seen by Cardiology low suspicion of ACS. Plan for Stress test while in hospital too rule out CAD. D/C'd Nitroglycerine Drip, Started Tylenol CV drips: Remains off vasoactive medications Rhythm: Sinus EKG: NSR ECHO: Echo dated : 02/08: Normal left ventricular size and systolic function. EF 60-65%. No regional wall motion abnormalities. No left ventricular hypertrophy. Type 2 diastolic dysfunction. Respiratory: Bibasilar opacities Chest X-ray: Bibasilar opacities could represent aspiration or infection with atelectasis considered less likely. Pneumonia unlikely given lack of fever or leukocytosis, R/O PE , Aortic Dissection with CT Angio Chest Respiratory prophylaxis: Albuterol Fluids/Renal: IV Fluids: Fluids from intravenous medications, IV LR Net Urine: Increased output today, aching at least half mL per kilo per hour Starkey: Present GI/Nutrition: Feeding: AHA diet Prophylaxis: On PPI Bowel movements: 0 since arrival PRN Miralax, Milk of Magnesia Endocrine: Last 24 hour glucose: Ranging 105 to 118 Hematology: Hemoglobin 13.1 DVT prophylaxis: Heparin 5000 3 times a day Infectious Disease/Immunology: Tmax: 36.8, no leukocytosis Resident Physician Supervision Note: Dr. Moreira was resident physician during care of patient. I separately evaluated patient and did history and exam. I discussed the case with the resident and generally agree with the findings and plan. Please see documentation in Lew Husain's note Documented By: Cresencio Espinal DO Consults & Procedures Consultants: Cardiology Procedures: Echo 1. Normal left ventricular size and systolic function. EF 60-65%. No regional wall motion abnormalities. No left ventricular hypertrophy. Type 2 diastolic dysfunction. 2. No significant valvular abnormalities. 3. No prior study available for comparison. CXR 02/08 FINDINGS: Cardiomediastinal silhouette normal. Interval development of bibasilar paramediastinal opacities, greater on the right. No large effusion or pneumothorax. Osseous structures normal. Gaseous distention of the stomach. IMPRESSION: 1. Bibasilar opacities could represent aspiration or infection with atelectasis considered less likely. Data Medications: Current Inpatient Medications Medications (Trade) Dose Ordered Sig/Jasmyn Route Start Time Stop Time Status Last Admin Dose Admin Al Hydrox/Mg Hydrox/Simethicone (Maalox Max Susp) 15 ml Q4H PRN PO 02/08/17 00:30 03/10/17 00:29 Magnesium Hydroxide (Milk Of Magnesia Susp) 30 ml Q12H PRN PO 02/08/17 00:30 03/10/17 00:29 Ondansetron HCl (Zofran Inj) 4 mg Q6H PRN IV 02/08/17 00:30 03/10/17 00:29 02/08/17 03:16 4 MG Nitroglycerin (Nitrostat Tab) 0.4 mg UD PRN SL 02/08/17 00:30 03/10/17 00:29 Nitroglycerin (Nitroglycerin 2% Oint) 1 inch Q6 EXT 02/08/17 02:00 03/10/17 01:59 02/08/17 05:52 1 INCH Polyethylene (Miralax Powder Packet) 17 gm DAILY PRN PO 02/08/17 00:30 03/10/17 00:29 Nitroglycerin/ Dextrose 250 ml @ 0 mls/hr Q0M IV 02/08/17 00:30 03/10/17 00:29 02/08/17 01:54 6 MLS/HR Heparin Sodium/ Dextrose 500 ml @ 25 mls/hr Q20H PRN IV 02/08/17 01:00 03/10/17 00:59 Future Hold 02/08/17 03:00 25 MLS/HR Albuterol (Ventolin Hfa Inhaler) 2 puffs QID INH 02/08/17 09:00 03/10/17 08:59 02/08/17 08:59 2 PUFFS Morphine Sulfate (MoRPHine SULFATE INJ) 2 mg Q1H PRN IV 02/08/17 01:00 02/22/17 00:59 Lactated Ringer's 1,000 ml @ 125 mls/hr Q8H IV 02/08/17 01:00 02/09/17 00:59 02/08/17 08:59 125 MLS/HR Nicotine (Nicoderm Cq 7 Mg Patch) 1 patch QAM TD 02/08/17 04:00 03/10/17 03:59 02/08/17 05:50 1 PATCH Miscellaneous (Remove Nicoderm Patch) 1 ea HS N/A 02/08/17 21:00 03/10/17 20:59 Albuterol/ Ipratropium (Duoneb) 3 ml Q3H PRN INH 02/08/17 09:00 03/10/17 08:59 Acetaminophen (Tylenol Tab) 1,000 mg Q8H PRN PO 02/08/17 08:45 03/10/17 08:44 02/08/17 08:59 1,000 MG Vital Signs: Date Time Temp Pulse Resp B/P (MAP) Pulse Ox O2 Delivery O2 Flow Rate FiO2 02/08/17 08:01 36.9 62 18 97/63 (74) 96 Nasal Cannula 2.0 02/08/17 08:00 97 Nasal Cannula 2.0 02/08/17 06:01 75 106/64 (71) 94 02/08/17 05:01 75 108/66 (71) 95 02/08/17 04:01 72 95/66 (77) 94 02/08/17 04:00 36.5 02/08/17 04:00 Nasal Cannula 2.0 02/08/17 03:01 63 103/64 (79) 92 02/08/17 03:00 63 100/66 (69) 94 02/08/17 02:46 62 95/69 (77) 93 02/08/17 02:40 65 114/72 (83) 91 02/08/17 02:01 71 112/78 (94) 93 02/08/17 01:54 61 109/75 (86) 93 Room Air 02/08/17 01:48 36.8 62 18 111/66 94 Room Air 02/08/17 01:37 36.6 77 19 99/62 94 02/08/17 01:01 36.6 77 19 99/62 94 02/08/17 00:59 77 99/62 94 Room Air 02/08/17 00:05 36.6 67 19 112/72 95 Room Air 02/07/17 22:16 36.7 82 30 122/53 93 Room Air 02/07/17 22:16 93 Room Air 02/07/17 22:16 95 Room Air 02/07/17 22:10 92 Laboratory Results: Last 24 Hours Test 02/07/17 21:42 02/08/17 02:26 02/08/17 05:55 02/08/17 09:10 White Blood Count 8.41 K/uL 8.01 K/uL Red Blood Count 4.82 M/uL 4.28 M/uL Hemoglobin 15.4 g/dL 13.1 g/dL Hematocrit 42.1 % 38.0 % Mean Corpuscular Volume 87.3 fL 88.8 fL Mean Corpuscular Hemoglobin 32.0 pg 30.6 pg Mean Corpuscular Hemoglobin Concent 36.6 g/dl 34.5 g/dl Platelet Count 290 K/uL 244 K/uL Mean Platelet Volume 10.8 fL 10.3 fL Neutrophils (%) (Auto) 38.9 % Lymphocytes (%) (Auto) 49.0 % Monocytes (%) (Auto) 6.4 % Eosinophils (%) (Auto) 4.8 % Basophils (%) (Auto) 0.7 % Neutrophils # (Auto) 3.27 K/uL Lymphocytes # (Auto) 4.12 K/uL Monocytes # (Auto) 0.54 K/uL Eosinophils # (Auto) 0.40 K/uL Basophils # (Auto) 0.06 K/uL RDW Standard Deviation 39.2 fL 40.2 fL RDW Coefficient of Variation 12.3 % 12.5 % Immature Granulocyte % (Auto) 0.2 % Immature Granulocyte # (Auto) 0.02 K/uL Erythrocyte Sedimentation Rate 2 mm/hr Sodium Level 143 mmol/L 142 mmol/L Potassium Level 3.6 mmol/L 3.7 mmol/L Chloride Level 107 mmol/L 111 mmol/L Carbon Dioxide Level 24 mmol/L 26 mmol/L Anion Gap 12.0 mmol/L 5.0 mmol/L Blood Urea Nitrogen 9 mg/dl 11 mg/dl Creatinine 0.78 mg/dl 0.70 mg/dl Est Creatinine Clear Calc Drug Dose 104.7 ml/min 116.7 ml/min Estimated GFR () 118.6 124.0 Estimated GFR (Non- 102.3 107.0 BUN/Creatinine Ratio 12.2 15.2 Random Glucose 105 mg/dl 118 mg/dl Estimated Average Glucose 114 mg/dl Hemoglobin A1c 5.6 % Calcium Level 9.2 mg/dl 8.3 mg/dl Troponin I < 0.015 ng/ml < 0.015 ng/ml < 0.015 ng/ml C-Reactive Protein < 0.29 mg/dl Prothrombin Time 10.9 SECONDS Prothromb Time International Ratio 1.0 Activated Partial Thromboplast Time 26.6 SECONDS Partial Thromboplastin Ratio 1.0 Procalcitonin < 0.05 ng/ml Hepatitis C Antibody Screen NEG Phosphorus Level 2.8 mg/dl Magnesium Level 2.2 mg/dl Triglycerides Level 319 mg/dl Cholesterol Level 115 mg/dl HDL Cholesterol 22 mg/dl LDL Cholesterol, Calculated 29 mg/dl VLDL Cholesterol, Calculated 64 mg/dl Cholesterol/HDL Ratio 5.2 Thyroid Stimulating Hormone (TSH) 2.570 uIu/ml Free Thyroxine 0.85 ng/dl Resident Tracking Resident Involvement: Resident Care Provided Care Provided: [facility]
--- NOTE | 2017-02-08 11:27 | Family Medicine Progress Note ---
Progress Note Date of Service Feb 08, 2017. Subjective Pt evaluation today including: conversation w/ patient The patient was seen and examined at bedside. Still complaining of left chest pain described as "sharp and crushing" that now radiates to the back as of early this morning. Trops negative x 3. Pt came back from his echocardiogram. Echo results are grossly normal. Pt rates his chest pain as 10/10. Denies any significant alcohol history. Does have a 1.5ppd smoking history. 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 Pt denies any new onset diarrhea or hematochezia. Pt and are at bedside. Plan of care was described to the patient and all questions were answered. Constitutional: No fever, No chills, No sweats, No weight loss Respiratory: + cough, No sputum, No wheezing, No shortness of breath Cardiovascular: + chest pain Abdomen: No pain, No nausea, No vomiting, No diarrhea, No constipation Male : No dysuria Objective Physical Exam General Appearance: WD/WN, + moderate distress Respiratory/Chest: chest non-tender, lungs clear, no respiratory distress, no accessory muscle use, + pertinent finding (decreased breath sounds) Cardiovascular: regular rate, rhythm, no edema, no gallop, no JVD, no murmur Abdomen: normal bowel sounds, non tender, soft, no organomegaly, no pulsatile mass Neurologic/Psychiatric: alert, normal mood/affect, oriented x 3 Skin: no rash Assessment and Plan 56M with severe L sided chest pain. Trops neg x 3. Echo grossly normal. Pt started on heparin drip empirically. Pain started to radiate to the back while in the ICU. Lipase and LFTs are grossly normal. CTA showing consolidation. At this point the pain is less likely cardiac in nature than on admission . Spoke w Dr. Bynum, plan to to exclude other causes first before cath. Heparin drip was stopped, Levofloxacin started and pt was transferred to Room 400. Chest Pain, unlikely cardiac, - Still c/o left arm pain. - Echo: * 1. Normal left ventricular size and systolic function. EF 60-65%. No regional wall motion abnormalities. No left ventricular hypertrophy. Type 2 diastolic dysfunction. * 2. No significant valvular abnormalities. * 3. No prior study available for comparison. - EKG this AM sinus rhythm. - Trops neg x 3. - Lipase and Amylase WNL. - Heparin drip was discontinued. - CTA - 1. No evidence for an aortic dissection. 2. Consolidation within the bilateral lower lobes posteriorly. This is nonspecific but may represent atelectasis. A pneumonia could also have a similar appearance. 3. Emphysema. - Urine Tox- Negative - Venous Dopplers - Negative bilaterally. - Pain: Tylenol 650mg Q6H PRN or Toradol 30mg IV Q6H PRN. - Pt explicitly states he does not want nitro because it gives him a HIGHTOWER. - EKG tomorrow AM. Consolidation on CT scan - Normal wbc, no fever, cough. - Ateletasis likely etiology. - Start Levofloxacin Daily for now and follow. - Check Blood and sputum Cultures. COPD - Duonebs Q3 PRN Wheezing. - Smoking cessation consult. - Nicotine Patch 21mg TD daily - If definite concern of pneumonia - will need to add steroids. Follow GI/Nutrition: * Heart Healthy Diet. DVT Proph: Lovenox Inj 30mg QAM. DISPO: Med Surg Full Code. Resident Involvement: Resident Care Provided Care Provided: [facility] Reviewed: Pt Seen/Exam by Me History continues to have soreness in left side of chest going to the back. denies working physical job requiring lifting Constitutional: denies: fever Respiratory: negative: cough, short of breath Cardiovascular: reports chest pain General Appearance: no apparent distress Respiratory: lungs clear, no accessory muscle use Cardiovascular: regular rate, rhythm Gastrointestinal: normal bowel sounds, non tender, soft Neurologic/Psychiatric: alert, oriented x 3 Skin Characteristics: warm/dry Assessment/Plan Resident Physician Supervision Note: I was present with Dr. Hilton in bedside. I verified the samayoa history and physical, reviewed labs and image studies, discussed the case with the resident and agree with the findings and care plan.
--- NOTE | 2017-02-08 11:46 | DIAGNOSTIC IMAGING REPORT ---
CHEST CTA for AORTIC DISSECTION CT DOSE: 491.38 mGy.cm HISTORY: Atypical chest pain. TECHNIQUE: Multiaxial CT images of the chest were performed both before and after the intravenous administration of contrast to evaluate the aorta. Maximal intensity projection images were also obtained. A dose lowering technique was utilized adhering to the principles of ALARA. COMPARISON STUDY: Chest CT 06/28/2009. FINDINGS: Noncontrast imaging through the chest shows no evidence for an intramural hematoma within the thoracic aorta. Normal caliber thoracic aorta with no evidence for dissection. The central pulmonary arteries appear patent. The heart is normal in size. No pleural or pericardial effusions. No mediastinal or hilar lymphadenopathy. The visualized liver and spleen are unremarkable. No pneumothorax. Mild emphysema. Consolidation within the bilateral lower lobes posteriorly IMPRESSION: 1. No evidence for an aortic dissection. 2. Consolidation within the bilateral lower lobes posteriorly. This is nonspecific but may represent atelectasis. A pneumonia could also have a similar appearance. 3. Emphysema. Electronically signed by: Doug Galaviz M.D. 02/08/2017 11:45 AM Dictated Date/Time: 02/08/2017 11:38 AM
[2017-02-08] MEDS: LEVOFLOXACIN 750 MG TAB PO SCH (12:34)
[2017-02-08 12:54] LABS: BENZODIAZEPINE, URINE NEG (NEG); COCAINE,URINE NEG (NEG); PHENCYCLIDINE, URINE NEG (NEG)
--- NOTE | 2017-02-08 13:13 | Cardiology Consultation ---
Cardiology Consultation Date of Consultation: Feb 08, 2017. Requesting Physician: Harley Attending Physician: Reymundo Reason for Consultation: Chest Pain Pt evaluation today including: conversation w/ patient, conversation w/ family , physical exam, chart review, lab review, review of studies, conversation w/ quality compliance consultant, review of inpatient medication list History of Present Illness Mr. Nicholas this is a 56-year-old man with a history of COPD, active tobacco use, family history of coronary artery disease who was admitted yesterday in the setting of acute onset chest pain. Patient is active at baseline with no limiting cardiac symptoms. He states that he was in his usual state of health until approximately 830 yesterday evening when while watching TV developed substernal chest pain radiating to his left arm. He states that initially the pain felt like heaviness and was associated with some mild nausea, shortness of breath. Denies any similar pain in the past. Eventually presented to the emergency department where was hemodynamically stable, initial EKG unremarkable and troponin negative. He was treated for unstable angina and placed on heparin infusion, nitroglycerin drip and monitor in the intensive care unit. Since that time he has had 2 other subsequent troponins which have been negative. subsequent EKGs have all been unchanged. Patient did have some improvement with sublingual nitroglycerin, nitro infusion but has had partially persistent chest pain symptoms beginning now more than 12 hours. He denies any associated fevers, chills. Denies any significant abdominal discomfort. Does report some pain radiating to his back today. Denies any change in bowel or urinary habits. Patient denies any significant prior cardiac history. Denies any prior stress test or heart catheterizations. Family history remarkable for a mother who of an ND in her 70s and a father who had a four-vessel CABG in his 50s. Past Medical/Surgical History COPD (chronic obstructive pulmonary disease) Emphysema History of prior seizure disorder History of spinal tumor History of sinus thrombosis Neck pain Chronic sinusitis Headache Muscle spasm History of concussion without loss of consciousness History of herpes zoster History of MRSA History of cellulitis of the rectum the Family History Diabetes mellitus Hypertension as outlined in HPI Social History Smoking Status: Current Every Day Smoker (.5-1 pack per day x 40yrs) History of Alcohol Use: Yes (occasionally ) Continues to smoke approximately half pack per day, almost 40 years. Drinks 2- 3 beers yesterday. Reports drinking maybe a 6 pack per week that is any other illicit drugs. Works in manufacturing. Review of Systems Respiratory: + cough, No sputum, No wheezing, No shortness of breath Cardiac: + chest pain Abdomen: No pain, No nausea Male : No urinary frequency Neurologic: No memory loss Heme: No abnormal bleeding/bruising Endo: No fatigue Skin: No rash All Other Systems: Reviewed and Negative (Pain) Allergies Coded Allergies: Oxycodone (Verified Adverse Reaction, Intermediate, ITCHINESS, 02/07/17) Medications Current Inpatient Medications Medications (Trade) Dose Ordered Sig/Jasmyn Route Start Time Stop Time Status Last Admin Dose Admin Al Hydrox/Mg Hydrox/Simethicone (Maalox Max Susp) 15 ml Q4H PRN PO 02/08/17 00:30 03/10/17 00:29 Magnesium Hydroxide (Milk Of Magnesia Susp) 30 ml Q12H PRN PO 02/08/17 00:30 03/10/17 00:29 Ondansetron HCl (Zofran Inj) 4 mg Q6H PRN IV 02/08/17 00:30 03/10/17 00:29 02/08/17 03:16 4 MG Nitroglycerin (Nitrostat Tab) 0.4 mg UD PRN SL 02/08/17 00:30 03/10/17 00:29 Nitroglycerin (Nitroglycerin 2% Oint) 1 inch Q6 EXT 02/08/17 02:00 03/10/17 01:59 02/08/17 12:38 1 INCH Polyethylene (Miralax Powder Packet) 17 gm DAILY PRN PO 02/08/17 00:30 03/10/17 00:29 Nitroglycerin/ Dextrose 250 ml @ 0 mls/hr Q0M IV 02/08/17 00:30 03/10/17 00:29 02/08/17 01:54 6 MLS/HR Heparin Sodium/ Dextrose 500 ml @ 25 mls/hr Q20H PRN IV 02/08/17 01:00 03/10/17 00:59 Future Hold 02/08/17 03:00 25 MLS/HR Albuterol (Ventolin Hfa Inhaler) 2 puffs QID INH 02/08/17 09:00 03/10/17 08:59 02/08/17 12:34 2 PUFFS Morphine Sulfate (MoRPHine SULFATE INJ) 2 mg Q1H PRN IV 02/08/17 01:00 02/22/17 00:59 Lactated Ringer's 1,000 ml @ 125 mls/hr Q8H IV 02/08/17 01:00 02/09/17 00:59 02/08/17 08:59 125 MLS/HR Albuterol/ Ipratropium (Duoneb) 3 ml Q3H PRN INH 02/08/17 09:00 03/10/17 08:59 Acetaminophen (Tylenol Tab) 1,000 mg Q8H PRN PO 02/08/17 08:45 03/10/17 08:44 02/08/17 08:59 1,000 MG Ioversol (Optiray 320) 100 ml UD PRN IV 02/08/17 10:45 02/12/17 10:44 Nicotine (Nicoderm Cq 21MG Patch) 1 patch QAM TD 02/09/17 09:00 03/11/17 08:59 Miscellaneous (Remove Nicoderm Patch) 1 ea HS N/A 02/08/17 21:00 03/10/17 20:59 Levofloxacin (Levaquin Tab) 750 mg DAILY@11 PO 02/08/17 13:00 02/15/17 12:59 02/08/17 12:34 750 MG Physical Exam Vital Signs Past 12 Hours Date Time Temp Pulse Resp B/P (MAP) Pulse Ox O2 Delivery O2 Flow Rate FiO2 02/08/17 08:01 36.9 62 18 97/63 (74) 96 Nasal Cannula 2.0 02/08/17 08:00 97 Nasal Cannula 2.0 02/08/17 06:01 75 106/64 (71) 94 02/08/17 05:01 75 108/66 (71) 95 02/08/17 04:01 72 95/66 (77) 94 02/08/17 04:00 36.5 02/08/17 04:00 Nasal Cannula 2.0 02/08/17 03:01 63 103/64 (79) 92 02/08/17 03:00 63 100/66 (69) 94 02/08/17 02:46 62 95/69 (77) 93 02/08/17 02:40 65 114/72 (83) 91 02/08/17 02:01 71 112/78 (94) 93 02/08/17 01:54 61 109/75 (86) 93 Room Air 02/08/17 01:48 36.8 62 18 111/66 94 Room Air 02/08/17 01:37 36.6 77 19 99/62 94 02/08/17 01:01 36.6 77 19 99/62 94 02/08/17 00:59 77 99/62 94 Room Air General: Comfortable, appears uncomfortable his Eyes: Sclerae anicteric, extraocular movements intact HENT: Oropharynx clear mucous membranes moist Neck: Supple, no lymphadenopathy, no thyromegaly. Lungs: Clear to auscultation bilaterally, no rhonchi or wheezes, prolonged expiratory phase all Cardiac: Regular rate and rhythm, no murmurs, rubs or gallops. No JVD. No peripheral edema. Extremities well perfused. Vascular: Normal carotid upstrokes, no bruits. 2+ radial, femoral, DP and PT pulses. No varicosities. Abdomen: Soft, nontender, nondistended positive bowel sounds. No hepatosplenomegaly Musculoskeletal: Normal gait. No joint deformities Skin: No rashes or lesions. Neuro: Cranial nerves 2-12 grossly intact, remainder exam nonfocal Psych: Alert orient x3, normal affect and mood Data Laboratory Results: Last 24 Hours Test 02/07/17 21:42 02/08/17 02:26 02/08/17 05:55 02/08/17 09:10 White Blood Count 8.41 K/uL 8.01 K/uL Red Blood Count 4.82 M/uL 4.28 M/uL Hemoglobin 15.4 g/dL 13.1 g/dL Hematocrit 42.1 % 38.0 % Mean Corpuscular Volume 87.3 fL 88.8 fL Mean Corpuscular Hemoglobin 32.0 pg 30.6 pg Mean Corpuscular Hemoglobin Concent 36.6 g/dl 34.5 g/dl Platelet Count 290 K/uL 244 K/uL Mean Platelet Volume 10.8 fL 10.3 fL Neutrophils (%) (Auto) 38.9 % Lymphocytes (%) (Auto) 49.0 % Monocytes (%) (Auto) 6.4 % Eosinophils (%) (Auto) 4.8 % Basophils (%) (Auto) 0.7 % Neutrophils # (Auto) 3.27 K/uL Lymphocytes # (Auto) 4.12 K/uL Monocytes # (Auto) 0.54 K/uL Eosinophils # (Auto) 0.40 K/uL Basophils # (Auto) 0.06 K/uL RDW Standard Deviation 39.2 fL 40.2 fL RDW Coefficient of Variation 12.3 % 12.5 % Immature Granulocyte % (Auto) 0.2 % Immature Granulocyte # (Auto) 0.02 K/uL Erythrocyte Sedimentation Rate 2 mm/hr Sodium Level 143 mmol/L 142 mmol/L 141 mmol/L Potassium Level 3.6 mmol/L 3.7 mmol/L 3.9 mmol/L Chloride Level 107 mmol/L 111 mmol/L 110 mmol/L Carbon Dioxide Level 24 mmol/L 26 mmol/L 29 mmol/L Anion Gap 12.0 mmol/L 5.0 mmol/L 2.0 mmol/L Blood Urea Nitrogen 9 mg/dl 11 mg/dl 10 mg/dl Creatinine 0.78 mg/dl 0.70 mg/dl 0.64 mg/dl Est Creatinine Clear Calc Drug Dose 104.7 ml/min 116.7 ml/min 127.6 ml/min Estimated GFR () 118.6 124.0 128.7 Estimated GFR (Non- 102.3 107.0 111.0 BUN/Creatinine Ratio 12.2 15.2 15.6 Random Glucose 105 mg/dl 118 mg/dl 102 mg/dl Estimated Average Glucose 114 mg/dl Hemoglobin A1c 5.6 % Calcium Level 9.2 mg/dl 8.3 mg/dl 8.6 mg/dl Troponin I < 0.015 ng/ml < 0.015 ng/ml < 0.015 ng/ml < 0.015 ng/ml C-Reactive Protein < 0.29 mg/dl Prothrombin Time 10.9 SECONDS Prothromb Time International Ratio 1.0 Activated Partial Thromboplast Time 26.6 SECONDS 53.2 SECONDS Partial Thromboplastin Ratio 1.0 2.0 Procalcitonin < 0.05 ng/ml Hepatitis C Antibody Screen NEG Phosphorus Level 2.8 mg/dl Magnesium Level 2.2 mg/dl Triglycerides Level 319 mg/dl Cholesterol Level 115 mg/dl HDL Cholesterol 22 mg/dl LDL Cholesterol, Calculated 29 mg/dl VLDL Cholesterol, Calculated 64 mg/dl Cholesterol/HDL Ratio 5.2 Thyroid Stimulating Hormone (TSH) 2.570 uIu/ml Free Thyroxine 0.85 ng/dl Total Bilirubin 0.5 mg/dl Aspartate Amino Transf (AST/SGOT) 13 U/L Alanine Aminotransferase (ALT/SGPT) 25 U/L Alkaline Phosphatase 44 U/L Total Protein 5.9 gm/dl Albumin 3.3 gm/dl Globulin 2.6 gm/dl Albumin/Globulin Ratio 1.3 Amylase Level 34 U/L Lipase 111 U/L Test 02/08/17 11:00 Urine Opiates Screen POS Urine Methadone, Qualitative NEG Urine Barbiturates NEG Urine Phencyclidine (PCP) Level NEG Ur Amphetamine/Methamphetamine NEG MDMA (Ecstasy) Screen NEG Urine Benzodiazepines Screen NEG Urine Cocaine Metabolite NEG Urine Marijuana (THC) NEG Imaging: chest x-ray--bibasilar opacities possible aspiration/infection less likely atelectasis chest CTA--no evidence of dissection, consolidation within bilateral lower lobes posteriorly question atelectasis versus infection EKG: sinus rhythm, no significant ST abnormalities Telemetry reviewed: No significant arrhythmia, pauses ECHO--reviewed, normal sinus rhythm, no regional wall motion abnormalities, no significant valvular pathology, no pericardial effusion Assessment & Plan 1. Chest pain 2. Pulmonary infiltrates 3. Dyslipidemia 4. COPD 5. Ongoing tobacco abuse 6. Family history premature coronary artery disease Patient continues to have significant chest pain, with some partial response to nitrates. He has now had severe chest pain for more than 12 hours but has no evidence of myocardial necrosis by cardiac enzymes, and noEKG changes or wall motion abnormalities in the setting of active chest pain. As such feel the likelihood that patient's chest pain is related to coronary ischemia/ACS is low. Review of echo shows no other significant cardiac pathology to explain patient's symptoms. With patient's cardiac risk factors do feel that the further risk stratification is warranted at and would consider a stress test at some point during this admission. Going forward: -continue to monitor on telemetry for now -can continue on heparin infusion overnight -repeat EKG, cardiac enzymes for change in symptoms -we nitroglycerin infusion -continued workup for noncardiac etiologies of patient's pain with primary,CCU team -with tentative plan for stress test tomorrow unless change in clinical picture. Thank you for allowing us to participate in the care of this patient. Please contact with questions.
--- NOTE | 2017-02-08 15:25 | DIAGNOSTIC IMAGING REPORT ---
ULTRASOUND BILATERAL LOWER EXTREMITY VENOUS CLINICAL HISTORY: Atypical chest pain. Clinical concern for deep venous thrombosis. COMPARISON STUDY: Left lower extremity venous ultrasound dated 12/15/2009. TECHNIQUE: Real-time, grayscale, and color Doppler sonography of the deep veins of the right and left lower extremity was performed from the inguinal crease to the calf. Compression and augmentation were utilized. FINDINGS: There is no sonographic evidence of deep venous thrombosis identified in the right or left lower extremity. The common femoral, superficial femoral, and popliteal veins are patent and normally compressible bilaterally. The greater saphenous vein and the profunda femoris vein at the junction with the common femoral vein are clear in both legs. The visualized calf veins are patent bilaterally. IMPRESSION: There is no sonographic evidence of deep venous thrombosis identified in the right or left lower extremity. Electronically signed by: Darryl Costa M.D. 02/08/2017 3:24 PM Dictated Date/Time: 02/08/2017 3:23 PM
[2017-02-08] MEDS: KETOROLAC TROMETHAMINE 30 MG/ML VIAL IV PRN (20:49)
[2017-02-09 05:44] LABS: MEAN CELL VOLUME 88.6 fL (80-100); MEAN CORPUSCULAR HEMOGLOBIN 29.8 pg (25-34); MEAN CORPUSCULAR HGB CONC 33.7 g/dl (32-36); MEAN PLATELET VOLUME 10.3 fL (7.4-10.4); PLATELET COUNT 245 K/uL (130-400); RED BLOOD COUNT 4.63 M/uL (4.7-6.1); WHITE BLOOD COUNT 8.25 K/uL (4.8-10.8)
[2017-02-09 06:19] LABS: BUN/CREATININE RATIO 16.9 (10-20); CALCIUM 8.8 mg/dl (8.5-10.1); CREATININE 0.75 mg/dl (0.60-1.40); MAGNESIUM 2.1 mg/dl (1.8-2.4); POTASSIUM 3.9 mmol/L (3.5-5.1)
[2017-02-09 06:22] LABS: PHOSPHORUS 3.4 mg/dl (2.5-4.9)
[2017-02-09] MEDS: KETOROLAC TROMETHAMINE 30 MG/ML VIAL IV PRN ×2 (07:43→13:38)
[2017-02-09 07:50] VITALS: BP 122/75; PULSE 76; TEMP 36.8; O2SAT 93
[2017-02-09] MEDS ORDERED: NICOTINE 21 MG/24 HR TDSY TD SCH (08:00)
[2017-02-09] MEDS: ENOXAPARIN 30 MG/0.3 ML SYR SQ SCH ×2 (08:42→08:45)
--- NOTE | 2017-02-09 10:25 | Cardiology Follow-Up ---
Subjective Subjective Date of Service: Feb 09, 2017. Pt evaluation today including: conversation w/ patient, conversation w/ family , physical exam, chart review, lab review, review of studies, review of inpatient medication list Additional Details: Pain somewhat improved today. Breathing stable. Appetite good. No new complaints. Problem List Medical Problems: (1) COPD (chronic obstructive pulmonary disease) Status: Chronic (2) Left sided chest pain Status: Acute Review of Systems Constitutional: No fever, No chills Respiratory: + cough, No sputum, No wheezing, No shortness of breath Cardiac: + chest pain Abdomen: No pain, No nausea Male : No dysuria Neurologic: No memory loss Heme: No abnormal bleeding/bruising Endo: No fatigue Skin: No rash Objective Vital Signs Last Vital Signs Documentation Date Time Temp Pulse Resp B/P (MAP) Pulse Ox O2 Delivery O2 Flow Rate FiO2 02/09/17 08:00 Room Air 02/09/17 07:50 36.8 76 16 122/75 (91) 93 02/08/17 15:14 2.0 Physical Exam: General Appearance: no apparent distress, + moderate distress Respiratory/Chest: chest non-tender, lungs clear, no respiratory distress Cardiovascular: regular rate, rhythm, no edema, no JVD, no murmur Abdomen: normal bowel sounds, non tender, soft Extremities: no pedal edema, no calf tenderness Neurologic/Psychiatric: alert, normal mood/affect, oriented x 3 Skin: no rash Assessment and Plan 1. Chest pain 2. Pulmonary infiltrates 3. Dyslipidemia 4. COPD 5. Ongoing tobacco abuse 6. Family history premature coronary artery disease Chest pain improving today while being treated for possible pneumonia, musculoskeletal pain. Persistent chest pain non-cardiac but with risk factors recommend stress test for risk stratification. -- will plan to obtain stress echo today -- if test negative would be Ok from a cardiac standpoint for discharge. . Medications: Current Inpatient Medications Medications (Trade) Dose Ordered Sig/Jasmyn Route Start Time Stop Time Status Last Admin Dose Admin Al Hydrox/Mg Hydrox/Simethicone (Maalox Max Susp) 15 ml Q4H PRN PO 02/08/17 00:30 03/10/17 00:29 Magnesium Hydroxide (Milk Of Magnesia Susp) 30 ml Q12H PRN PO 02/08/17 00:30 03/10/17 00:29 Ondansetron HCl (Zofran Inj) 4 mg Q6H PRN IV 02/08/17 00:30 03/10/17 00:29 02/08/17 03:16 4 MG Polyethylene (Miralax Powder Packet) 17 gm DAILY PRN PO 02/08/17 00:30 03/10/17 00:29 Albuterol/ Ipratropium (Duoneb) 3 ml Q3H PRN INH 02/08/17 09:00 03/10/17 08:59 Acetaminophen (Tylenol Tab) 1,000 mg Q8H PRN PO 02/08/17 08:45 03/10/17 08:44 02/08/17 08:59 1,000 MG Ioversol (Optiray 320) 100 ml UD PRN IV 02/08/17 10:45 02/12/17 10:44 Nicotine (Nicoderm Cq 21MG Patch) 1 patch QAM TD 02/09/17 08:00 03/11/17 08:59 02/09/17 07:52 1 PATCH Miscellaneous (Remove Nicoderm Patch) 1 ea HS N/A 02/08/17 21:00 03/10/17 20:59 Levofloxacin (Levaquin Tab) 750 mg DAILY@11 PO 02/08/17 13:00 02/15/17 12:59 02/08/17 12:34 750 MG Enoxaparin Sodium (Lovenox Inj) 30 mg QAM SQ 02/09/17 08:00 03/11/17 07:59 02/09/17 08:45 30 MG Ketorolac Tromethamine (Toradol Inj) 30 mg Q6H PRN IV 02/08/17 17:45 02/13/17 17:44 02/09/17 07:43 30 MG Lab Results: 02/09/17 05:24 02/09/17 05:24 Test 02/08/17 11:00 02/08/17 12:20 02/08/17 18:23 02/09/17 05:24 Urine Opiates Screen POS (NEG) Urine Methadone, Qualitative NEG (NEG) Urine Barbiturates NEG (NEG) Urine Phencyclidine (PCP) Level NEG (NEG) Ur Amphetamine/Methamphetamine NEG (NEG) MDMA (Ecstasy) Screen NEG (NEG) Urine Benzodiazepines Screen NEG (NEG) Urine Cocaine Metabolite NEG (NEG) Urine Marijuana (THC) NEG (NEG) Bedside Glucose 88 mg/dl (70-99) Troponin I < 0.015 ng/ml (0-0.045) Red Blood Count 4.63 M/uL (4.7-6.1) Mean Corpuscular Volume 88.6 fL (80-100) Mean Corpuscular Hemoglobin 29.8 pg (25-34) Mean Corpuscular Hemoglobin Concent 33.7 g/dl (32-36) RDW Standard Deviation 39.5 fL (36.4-46.3) RDW Coefficient of Variation 12.4 % (11.5-14.5) Mean Platelet Volume 10.3 fL (7.4-10.4) Activated Partial Thromboplast Time 26.0 SECONDS (21.0-31.0) Partial Thromboplastin Ratio 1.0 Anion Gap 6.0 mmol/L (3-11) Est Creatinine Clear Calc Drug Dose 108.9 ml/min Estimated GFR () 120.5 Estimated GFR (Non- 104.0 BUN/Creatinine Ratio 16.9 (10-20) Calcium Level 8.8 mg/dl (8.5-10.1) Phosphorus Level 3.4 mg/dl (2.5-4.9) Magnesium Level 2.1 mg/dl (1.8-2.4)
[2017-02-09] MEDS: ACETAMINOPHEN 500 MG TAB PO PRN ×2 (11:23→18:25)
[2017-02-09] MEDS: LEVOFLOXACIN 750 MG TAB PO SCH (11:24)
--- NOTE | 2017-02-09 12:30 | EXERCISE STRESS ECHO ---
*NOTICE TO RECEIVING [employer] This information is strictly Confidential and protected under [place] law. [place] law prohibits you from making any further disclosure of this information unless further disclosure is expressly permitted by the written consent of the person to whom it pertains or is authorized by law. A general authorization for the release of medical or other information is not sufficient for this purpose. Hospital accepts no responsibility if the information is made available to any other person, INCLUDING THE PATIENT. Interpretation Summary * Name: FESTUS OCONNELL Study Date: 02/09/2017 11:35 AM BP: 135/79 mmHg * Patient Location: .4E\S\E400\S\1 HR: 82 * : 1960 (M/d/yyyy) Gender: Male Height: 68 in * Age: 56 yrs Ethnicity: [place] Weight: 164 lb * Ordering Physician: Hira Bynum * Referring Physician: Self, Referred * Performed By: Caitlin Singer RDCS * * Reason For Study: CHEST PAIN * BSA: 1.9 m2 * -- Conclusions -- * Left ventricular systolic function is normal. * Sub maximal (81% MPHR) exercise echocardiogram without evidence of inducible ischemia Procedure Details * ECHOEX, CPT #17336 Left Ventricular Findings with Stress * Sub maximal (81% MPHR) exercise echocardiogram without evidence of inducible ischemia Left Ventricle * Left ventricular systolic function is normal. Pericardium * There is no pericardial effusion. Stress Parameters * Normal baseline electrocardiogram. * The stress ECG response was normal * The stress portion of this study was personally supervised by the undersigned interpreting physician. * Rest heart rate was '82' BPM. * Rest blood pressure was '135/79' * Maximum heart rate achieved was 136 bpm. * Maximum heart rate was 81 % of maximum age-predicted heart rate. * Maximum blood pressure was '184/72' * Total exercise time was '8:00' * Maximum exercise MET level achieved was '10.10' METS * Maximum treadmill speed was '3.40' miles per hour. * Maximum treadmill elevation was '14.00'% grade. * Exercise was terminated due to 'FATIGUE' Left Ventricular Findings with Stress * The baseline EKG was normal There were no significant ST segment changes with exertion Baseline echocardiogram was normal There was normal augmentation of the left ventricle without inducible wall motion abnormalities during exercise Overall heart rate and blood pressure response to exercise was blunted There was the development of very mild left axillary discomfort at the conclusion of exercise which resolved quickly in recovery
[2017-02-09 14:58] VITALS: BP 123/82; PULSE 82; TEMP 36.5; O2SAT 95
[2017-02-09] MEDS ORDERED: LVQ750 PO (17:36)
[2017-02-09] MEDS ORDERED: VARE1PAK15 PO (17:36)
--- NOTE | 2017-02-09 17:48 | Discharge Instructions ---
Discharge Instructions Date of Service Feb 09, 2017. Admission Reason for Admission: Left Sided Chest Pain Discharge Discharge Diagnosis / Problem: Pleuritic Chest Pain 2/2 Pneumonia Discharge Goals Goal(s): Decrease discomfort, Improve function, Increase independence, Improve disease control, Improve nutritional status, Learn about illness Activity Recommendations Activity Limitations: per Instructions/Follow-up section . Instructions / Follow-Up Instructions / Follow-Up You are being discharged on 3 days of Levofloxacin. Levofloxacin is an antibiotic that is used to treat pneumonia. Please take Levofloxacin every day for the next 3 days at 11am. You are also being given a prescription for Chantix. Chantix is a medication that will help decrease cravings for nicotine. You can use Chantix with nicotine gum or nicotine patches. Please read and follow the instructions on your Chantix packet carefully. Please stop smoking. Your health will improve if you stop smoking. Please follow up with your Primary Care Provider within one week. An information packet on smoking cessation will be attached to this Hospital Package. Please read it thoroughly. Our evaluation of your heart including EKG, cardiac enzymes, resting echocardiogram and stress echocardiogram was normal. A summary of these results will be sent to your Primary Care Provider, Dr. Machado. Current Hospital Diet Patient's current hospital diet: AHA Diet (Heart Healthy) Discharge Diet Recommended Diet: Regular Diet Pending Studies Studies pending at discharge: no Laboratory Results Hemoglobin A1c Test 02/07/17 21:42 Range/Units Estimated Average Glucose 114 mg/dl Hemoglobin A1c 5.6 4.5-5.6 % Lipid Panel Test 02/08/17 05:55 Range/Units Triglycerides Level 319 H 0-150 mg/dl Cholesterol Level 115 0-200 mg/dl HDL Cholesterol 22 mg/dl Cholesterol/HDL Ratio 5.2 LDL Cholesterol, Calculated 29 mg/dl Medical Emergencies . Who to Call and When: Medical Emergencies: If at any time you feel your situation is an emergency, please call 911 immediately. . Non-Emergent Contact Non-Emergency issues call your: Primary Care Provider . . "Provider Documentation" section prepared by Fransico Hilton. . VTE Core Measure Inpt VTE Proph given/why not?: Enoxaparin (Lovenox)SQ Resident Involvement: Resident Care Provided Care Provided: Adult Hospital Medicine
--- NOTE | 2017-02-09 17:52 | Discharge Summary ---
Discharge Summary Date of Service Feb 09, 2017. (Fransico Hilton M.D.) Discharge Summary Admission Date: Feb 08, 2017 at 01:04 Discharge Disposition: Home Principal Diagnosis: Pleuritic Chest Pain Problems/Secondary Diagnoses: (1) COPD (chronic obstructive pulmonary disease) Status: Chronic Immunizations: Have You Had Influenza Vaccine: No History of Tetanus Vaccine?: Yes Tetanus Immunization Date: Dec 18, 2008 History of Pneumococcal: No History of Hepatitis B Vaccine: Unknown Hepatitis Immunization Date: Jan 11, 1991 Procedures: Exercise Echocardiogram: * Left ventricular systolic function is normal. * Sub maximal (81% MPHR) exercise echocardiogram without evidence of inducible ischemia Resting Echocardiogram * 1. Normal left ventricular size and systolic function. EF 60-65%. No regional wall motion abnormalities. No left ventricular hypertrophy. Type 2 diastolic dysfunction. * 2. No significant valvular abnormalities. * 3. No prior study available for comparison. CHEST CTA for AORTIC DISSECTION CT DOSE: 491.38 mGy.cm HISTORY: Atypical chest pain. TECHNIQUE: Multiaxial CT images of the chest were performed both before and after the intravenous administration of contrast to evaluate the aorta. Maximal intensity projection images were also obtained. A dose lowering technique was utilized adhering to the principles of ALARA. COMPARISON STUDY: Chest CT 06/28/2009. FINDINGS: Noncontrast imaging through the chest shows no evidence for an intramural hematoma within the thoracic aorta. Normal caliber thoracic aorta with no evidence for dissection. The central pulmonary arteries appear patent. The heart is normal in size. No pleural or pericardial effusions. No mediastinal or hilar lymphadenopathy. The visualized liver and spleen are unremarkable. No pneumothorax. Mild emphysema. Consolidation within the bilateral lower lobes posteriorly IMPRESSION: 1. No evidence for an aortic dissection. 2. Consolidation within the bilateral lower lobes posteriorly. This is nonspecific but may represent atelectasis. A pneumonia could also have a similar appearance. 3. Emphysema. [~ rep ct add3]] ULTRASOUND BILATERAL LOWER EXTREMITY VENOUS CLINICAL HISTORY: Atypical chest pain. Clinical concern for deep venous thrombosis. COMPARISON STUDY: Left lower extremity venous ultrasound dated 12/15/2009. TECHNIQUE: Real-time, grayscale, and color Doppler sonography of the deep veins of the right and left lower extremity was performed from the inguinal crease to the calf. Compression and augmentation were utilized. FINDINGS: There is no sonographic evidence of deep venous thrombosis identified in the right or left lower extremity. The common femoral, superficial femoral, and popliteal veins are patent and normally compressible bilaterally. The greater saphenous vein and the profunda femoris vein at the junction with the common femoral vein are clear in both legs. The visualized calf veins are patent bilaterally. IMPRESSION: There is no sonographic evidence of deep venous thrombosis identified in the right or left lower extremity. CHEST ONE VIEW PORTABLE CLINICAL HISTORY: 56 years-old Male presenting with CHEST PAIN. TECHNIQUE: Portable upright AP view of the chest was obtained. COMPARISON: 03/13/2012. FINDINGS: Cardiomediastinal silhouette normal. Interval development of bibasilar paramediastinal opacities, greater on the right. No large effusion or pneumothorax. Osseous structures normal. Gaseous distention of the stomach. IMPRESSION: 1. Bibasilar opacities could represent aspiration or infection with atelectasis considered less likely. (Fransico Hilton M.D.) Medication Reconciliation New Medications: Varenicline Tartrate (Chantix Starting Month Pa) 1 Luis Armando Luis Armando 1 PKT PO UD for 28 Days, #1 PKT Levofloxacin (Levofloxacin) 750 Mg Tab 750 MG PO DAILY@11 for 3 Days, #3 TAB Continued Medications: Albuterol Hfa (Ventolin Hfa) 200 Puffs/26551 Mcg Aers 2 PUFFS INH QID, #1 INHALER Diphenhydramine-Acetaminophen (Tylenol Pm) 1 Tab Tab 1 TAB PO HS PRN for RESTLESSNESS, TAB Discharge Exam Subjective The patient was seen and examined at bedside. Chest pain has improved slightly. Worse on deep inspiration. Nicotine patch in place. Pt verbalizes that he wants to quit smoking and wants pharmacological assistance. Pt is resting comfortably. eating and drinking well. Plan of care was described to the patient and all questions were answered. Constitutional: No fever, No chills, No sweats, No weight loss Respiratory: + cough, No sputum, No wheezing, No shortness of breath Cardiovascular: + chest pain Abdomen: No pain, No nausea, No vomiting, No diarrhea, No constipation Male : No dysuria Physical Exam General Appearance: WD/WN, no distress Respiratory/Chest: chest non-tender, lungs clear, no respiratory distress, no accessory muscle use, + pertinent finding (decreased breath sounds in all lung gil bilaterally) Cardiovascular: regular rate, rhythm, no edema, no gallop, no JVD, no murmur Abdomen: normal bowel sounds, non tender, soft, no organomegaly, no pulsatile mass Neurologic/Psychiatric: alert, normal mood/affect, oriented x 3 Skin: no rash (Fransico Hilton M.D.) chest soreness much better Review of Systems: Constitutional: No fever Respiratory: No shortness of breath Physical Exam: General Appearance: no apparent distress Respiratory/Chest: lungs clear, no respiratory distress Cardiovascular: regular rate, rhythm Abdomen / GI: normal bowel sounds, non tender, soft Neurologic/Psychiatric: alert, oriented x 3 Skin: warm/dry (Carri Dwyer M.D.) Hospital Course 56M with severe L sided chest pain radiating to the left arm that was both crushing and sharp in nature, that was present all the time and not relieved by any activities. Trops neg x 3. Resting Echo grossly normal. Pt started on heparin drip empirically. Pain started to radiate to the back while in the ICU. Lipase and LFTs are grossly normal. CTA showing consolidation in bilateral lower lobes suggesting pneumonia. At this point the pain is less likely cardiac in nature than on admission and symptoms began to become more pleuritic in nature (no pain at rest and sharp pain on deep inspiration). Heparin drip was stopped, Levofloxacin started. Exercise stress test was grossly normal. Pt was discharged to complete a total of 5 day course of Levofloxacin and given a prescription for a Chantix Home Pack. Pt is very motivated to quit smoking. PCP follow in one week with Dr. Machado according to pt. Total Time Spent: Greater than 30 minutes This includes examination of the patient, discharge planning, medication reconciliation, and communication with other providers. (Fransico Hilton M.D.) Resident Physician Supervision Note: I was present with Dr. Hilton in bedside. I verified the samayoa history and physical, reviewed labs and image studies, discussed the case with the resident and agree with the findings and care plan. Total Time Spent: Greater than 30 minutes (35) (Carri Dwyer M.D.) Discharge Instructions Please refer to the electronic Patient Visit Report (Discharge Instructions) for additional information. (Fransico Hilton M.D.) Follow-Up Follow up with PCP within one week. (Fransico Hilton M.D.) Additional Copies To Blayne Machado M.D. Resident Involvement: Resident Care Provided Care Provided: Adult [facility] (Fransico Hilton M.D.)
[2017-02-09 17:58] VITALS: BP 123/82; PULSE 82; TEMP 36.5; O2SAT 95
[2017-02-11 20:28] LABS: COD UR NEGATIVE NG/ML (CUTOFF=50); HYDROCOD UR NEGATIVE NG/ML (CUTOFF=50); HYDROMOR UR NEGATIVE NG/ML (CUTOFF=50); MORPHINE UR 813 NG/ML (CUTOFF=50); NORHYDROCODONE CONF UR NEGATIVE NG/ML (CUTOFF=50); OXYMORPH UR NEGATIVE NG/ML (CUTOFF=50)
== END 2017-02-09 19:09 | disposition home or self-care (01) | DRG 195 ==
LOC: EDBD 22:06 → C.EDB 22:07 → EDBEDREQ 02-08 00:25 → ENRESERV 02-08 00:50 → CANRESERV 02-08 00:50 → C.MSICU 02-08 01:04 → EDBEDREQSVC 02-08 01:06 → ENRESERV 02-08 01:08 → C.4E 02-08 16:03
PROVIDERS: ADMIT Internal Medicine; ATTEND Family Medicine
DX: J18.9 Pneumonia, unspecified organism (principal); J44.9 Chronic obstructive pulmonary disease, unspecified; F17.210 Nicotine dependence, cigarettes, uncomplicated; Z82.49 Family history of ischemic heart disease and other diseases of the circulatory system; Z82.41 Family history of sudden cardiac death; Z83.3 Family history of diabetes mellitus; Z86.14 Personal history of Methicillin resistant Staphylococcus aureus infection

== ENCOUNTER → 2017-02-14 | Outpatient (CLI) | payer BC ==
[~2017-02-14] MED LIST changes: -ACET-749 PO; -ALBUAER19 INH; +LVQ750 PO; +VARE1PAK15 PO; +VNTHFA/IN INH
--- NOTE | 2017-02-14 10:30 | DIAGNOSTIC IMAGING REPORT ---
CHEST 2 VIEWS ROUTINE CLINICAL HISTORY: R93.8 Abnormal chest x-rayR07.9 Chest [id number] COMPARISON STUDY: 02/07/2017 FINDINGS: The cardiac and mediastinal contours remain stable. There is no focal pulmonary consolidation. There are no pleural effusions. There are resolving basilar interstitial opacities. Erosive/postsurgical changes are again evident involving the distal right clavicle.[ IMPRESSION: Resolving basilar interstitial opacities. Electronically signed by: Sergio Rider M.D. 02/14/2017 10:28 AM Dictated Date/Time: 02/14/2017 10:28 AM
== END | disposition home or self-care (01) ==
LOC: C.RAD1850 09:35
PROVIDERS: ATTEND Physician Assistant Medical
DX: R93.8 Abnormal findings on diagnostic imaging of other specified body structures (principal); R07.9 Chest pain, unspecified

== ENCOUNTER → 2017-02-28 | Outpatient (CLI) | payer BC ==
--- NOTE | 2017-02-28 13:33 | SWALLOWING EVALUATION ---
HISTORY: This 56 year old man was referred for a video swallow study at [facility] in order to rule out aspiration and identify the safest consistencies for optimal oral intake. The patient reports globus sensation throughout the day and overnight, along with frequent clearing of his throat. He was recently admitted to the hospital (02/08-02/09/17) for acute onset of chest pain, and was found to have BLL consolidations suggestive of aspiration. He denied having coughing/choking episodes with eating, other than on occasion but did state he coughed with mixed consistencies (cereal). PMH is significant for: COPD, emphysema, and tobacco use. Patient reports that he has been taking reflux medications since his hospital stay, typically in the morning. Current diet is regular but reports some difficulty with swallowing steak. PROCEDURE: The patient was seen in the Radiology Department of [facility] for the [facility]. Cursory examination of the oral cavity revealed natural dentition. Oral motor function was wnl. The patient was seated on a stool and was viewed in both the Anterior-Posterior (A-P) and Lateral planes. Volitional phonation exercises completed in the A-P plane revealed bilateral vocal fold movement and vocal intensity within functional limits. In the lateral plane, the patient was given the following boluses: 1 tsp. thin liquid barium x 2, single swallow thin liquid barium self-presented from a cup, sequential swallows of thin liquid barium self-presented from a cup, 1 tsp. nectar-thick liquid barium, single swallow nectar-thick liquid barium self-presented from a cup, 1 tsp. barium pudding, and 1 club cracker coated in barium pudding. The patient was then repositioned into the A-P plane and given the following boluses: 1 tsp. nectar thick barium and 1 tsp. barium pudding. RESULTS: Oral Stage: Lip closure was adequate. The patient was able to maintain a cohesive liquid bolus in the oral cavity without any escape during the liquid bolus hold task. Mastication was timely and efficient. Lingual motion for bolus transport was noted to be slow. There was trace retention lining the tongue and palate after the swallow. The initiation of the pharyngeal swallow was timely and occurred when the bolus head reached the posterior angle of the ramus. Pharyngeal Stage: Soft palate elevation was complete. Laryngeal elevation revealed complete superior movement of the thyroid cartilage with complete approximation of the arytenoids to the epiglottic base. Anterior hyoid excursion was partially reduced. Epiglottic deflection was complete. Laryngeal vestibular closure was complete. The pharyngeal stripping wave was present and complete. There was partial distention and duration of the opening to the pharyngoesophageal segment (PES). Tongue base retraction was reduced, with a trace column of contrast located between the tongue base and pharyngeal wall during the swallow. There was trace retention located in the valleculae and pyriforms after the swallow. The pharyngeal stage of the swallow was essentially wnl. There was no evidence of laryngeal penetration or aspiration. Only trace amounts of retention noted after the swallow. The patient did have multiple episodes of throat clearing during the study but this was not due to aspiration. Esophageal stage: There was esophageal retention throughout the mid and distal esophagus with retrograde flow through the PES. In the lateral view, retrograde flow was more noticeably prominent. When this occurred, the bolus would enter and retain in the pyriforms, which does increase aspiration risk. These findings are suggestive of esophageal dysmotility and reflux. SUMMARY/RECOMMENDATIONS: This patient presents with mild tano-pharyngeal dysphagia. She also has s/s of esophageal dysfunction. The following is recommended: 1. Regular diet, "slippery" and thin liquids. 2. Aspiration and GERD (reflux) precautions. Fully upright while eating and 30 minutes after meals. Head of the bed should be elevated to 30 degrees at all times to include while asleep. 3. Safe swallow strategies: Avoid foods that are dry, thick, pasty, or doughy. Use of condiments such as gravy to assist with making foods moist. Rest breaks while eating. Alternate solids and liquids. 4. Follow up with PCP. Consider medication management for s/s of reflux (in particular at night per patient's report) along with a consultation with a insurance risk surveyor as needed with any increased discomfort while eating. Should the patient have persistent throat clearing with improved management of his esophageal dysfunction, would recommend a consultation with an batch maker. A summary of the results and recommendations was discussed with the patient and immediately following the study with verbal understanding. The patient was also provided with verbal education regarding a "slippery" diet for improved comfort while eating (avoiding foods that are dry, thick, pasty, or doughy) as needed. He verbalized understanding to this as well. Also reported he typically does not lay flat while sleeping. Thank you for referral of this patient. Please contact me at if any additional information is needed.
--- NOTE | 2017-02-28 13:47 | DIAGNOSTIC IMAGING REPORT ---
VIDEO SWALLOW STUDY CLINICAL HISTORY: Choking. Pneumonia. COMPARISON STUDY: No priors. Fluoroscopy time: 2.4 minutes. FINDINGS: Fluoroscopic guidance was provided to the Department of Speech Pathology in performing a video swallow study. The patient consumed barium-impregnated pudding, nectar thick liquid, cracker with paste, as well as thin barium while the swallow mechanism was observed in real-time. No penetration or aspiration was seen with any of the sampled textures. Mild esophageal dysmotility is observed. IMPRESSION: No penetration or aspiration was seen with any of the sampled textures. See dedicated speech pathology report for detailed findings and recommendations. Dictated: 02/28/2017 12:51 PM Transcribed: 02/28/2017 1:46 PM [id number] Electronically signed by: Darryl Costa M.D. 02/28/2017 1:59 PM Dictated Date/Time: 02/28/2017 12:51 PM
== END | disposition home or self-care (01) ==
LOC: C.RAD 11:02
PROVIDERS: ATTEND Physician Assistant Medical
DX: J18.9 Pneumonia, unspecified organism (principal); T17.308A Unspecified foreign body in larynx causing other injury, initial encounter; X58.XXXA Exposure to other specified factors, initial encounter

== ENCOUNTER → 2017-03-09 | Outpatient (CLI) | payer BC ==
--- NOTE | 2017-03-09 13:29 | DIAGNOSTIC IMAGING REPORT ---
CHEST 2 VIEWS ROUTINE CLINICAL HISTORY: R05 [id number] COMPARISON STUDY: 02/14/2017 FINDINGS: The cardiac images so contours remain stable. There is no focal pulmonary consolidation. There is no failure. There are no pleural effusions. There is minor interstitial thickening similar to the prior study. There are stable erosive/postsurgical changes involve the distal right clavicle[ IMPRESSION: Minor interstitial thickening similar to the preceding study. No acute findings. Electronically signed by: Sergio Rider M.D. 03/09/2017 1:28 PM Dictated Date/Time: 03/09/2017 1:26 PM
== END | disposition home or self-care (01) ==
LOC: C.RAD1850 13:15
PROVIDERS: ATTEND Physician Assistant Medical
DX: R05 Cough (principal)

== ENCOUNTER 2017-07-14 13:38 | Emergency (ER) | payer OTHER ==
[~2017-07-14] VITALS: Ht 172.7 cm; Wt 78.8 kg
[~2017-07-14 13:38] MED LIST changes: -CEPH500C PO; -DICY10CA55 PO; -OMEP40CA41 PO; -PRLSR20 PO; -RANI150T85 PO; -RANI300T2 PO; -SULF800T23 PO; -TRAM-10 PO; -TRAM-453 PO; -VALA1TAB31 PO
[2017-07-14 13:52] VITALS: TEMP 36.5; Ht 172.7 cm; Wt 78.8 kg
[2017-07-14] MEDS ORDERED: MoRPHine SULFATE 4 MG/ML 1 ML CARP\\VIAL IV STA ×2 (14:30→17:24)
[2017-07-14] MEDS ORDERED: OPTIRAY 320 IV PRN (14:30)
[2017-07-14 15:16] LABS: BASO % 0.5 %; BASO ABS # 0.04 K/uL (0-0.2); EOS % 3.4 %; EOS ABS # 0.28 K/uL (0-0.5); HEMATOCRIT 41.9 % (42-52); HEMOGLOBIN 14.9 g/dL (14.0-18.0); IG# 0.02 K/uL (0.00-0.02); LYMPH % 37.7 %; LYMPH ABS # 3.06 K/uL (1.2-3.4); MEAN CELL VOLUME 86.7 fL (80-100); MEAN CORPUSCULAR HEMOGLOBIN 30.8 pg (25-34); MEAN CORPUSCULAR HGB CONC 35.6 g/dl (32-36); MEAN PLATELET VOLUME 10.8 fL (7.4-10.4); MONO % 6.7 %; MONO ABS # 0.54 K/uL (0.11-0.59); NEUT % 51.5 %; NEUT ABS # 4.18 K/uL (1.4-6.5); PLATELET COUNT 265 K/uL (130-400); RED CELL DISTRIBUTION WIDTH CV 12.4 % (11.5-14.5); RED CELL DISTRIBUTION WIDTH SD 39.6 fL (36.4-46.3); WHITE BLOOD COUNT 8.12 K/uL (4.8-10.8)
[2017-07-14 15:27] LABS: PTT PATIENT 26.6 SECONDS (21.0-31.0)
[2017-07-14 15:33] LABS: ALBUMIN 4.2 gm/dl (3.4-5.0); ALT/SGPT 54 U/L (12-78); AST/SGOT 19 U/L (15-37); BLOOD UREA NITROGEN 15 mg/dl (7-18); CALCIUM 9.3 mg/dl (8.5-10.1); CARBON DIOXIDE 25 mmol/L (21-32); CREATININE 0.78 mg/dl (0.60-1.40); GLUCOSE 131 mg/dl (70-99); POTASSIUM 3.5 mmol/L (3.5-5.1); SODIUM 136 mmol/L (136-145)
[2017-07-14] MEDS ORDERED: PRLSR20 PO (15:43)
[2017-07-14] MEDS ORDERED: RANI300T2 PO (15:43)
[2017-07-14 15:46] LABS: ALKALINE PHOSPHATASE 57 U/L (45-117); CKMB 0.9 ng/ml (0.5-3.6); LIPASE 178 U/L (73-393); TOTAL PROTEIN 7.6 gm/dl (6.4-8.2)
--- NOTE | 2017-07-14 17:19 | DIAGNOSTIC IMAGING REPORT ---
CT OF THE ABDOMEN AND PELVIS WITH CONTRAST CLINICAL HISTORY: Abdominal pain and swelling. COMPARISON STUDY: CT of the abdomen and pelvis June 22, 2010. TECHNIQUE: Following IV administration of 120 mL of Optiray-320, axial images of the abdomen and pelvis were obtained from the lung bases to the proximal femurs. Images were reviewed in the axial, sagittal, and coronal planes. IV contrast was administered without complication. A dose lowering technique was utilized adhering to the principles of ALARA. Oral contrast was administered. CT DOSE: 303.14 mGy.cm FINDINGS: Groundglass opacities within the lower lungs favor atelectasis. There may be fatty infiltration of the liver. The spleen, adrenal glands, kidneys and pancreas are normal. There is no hydronephrosis. There is no biliary or pancreatic ductal dilatation. No peripancreatic or pericholecystic infiltration is present. Caliber and wall thickness of small and large bowel are normal. The appendix is normal. There is sigmoid diverticulosis without evidence for acute diverticulitis. There is no lymphadenopathy or abscess. There are no suspicious skeletal lesions. IMPRESSION: 1. No acute process within the abdomen or pelvis. 2. Normal appendix. No bowel obstruction. 3. Sigmoid diverticulosis without evidence for acute diverticulitis. Electronically signed by: Tal Flores M.D. 07/14/2017 5:18 PM Dictated Date/Time: 07/14/2017 5:13 PM
--- NOTE | 2017-07-14 17:24 | EMERGENCY ROOM VISIT NOTE ---
History First contact with patient: 14:22 Chief Complaint: ABDOMINAL PAIN Stated Complaint: SWELLING STOMACH, PAIN IN RT SIDE - REF BY ALEXANDREA Nursing Triage Summary: pt reports was see dr machado told he has abd swelling and right side abd sounds told to come to ed for eval . needs ct scan . pt reports going up 2 pants sizes History of Present Illness The patient is a 56 year old male who presents to the Emergency Room with complaints of "swelling stomach, pain in right side, referred by Dr. Machado". The patient states that 1 month ago he was wearing a size 32 pants in regard to waist size. He states now throughout the past month his abdomen has been enlarging, becoming hard and now wears a size 34, borderline 36. He states he also has pain that feels a stabbing sensation in his right flank. He notes that when he bends over the pain is exquisite throughout the abdomen diffusely. He rates the overall pain as a 9/10. He states that he now has vomiting, and diarrhea. His stools are light evans color. He notes that he does smoke and consumes alcohol. He states that he also has acid reflux. He is on medications for this. He states that today he was at Dr. Machado's office and was evaluated and sent here over concern for the abdominal swelling and pain. Review of Systems A complete 10-point Review of Systems was discussed with the patient, with pertinent positives and negatives listed in the History of Present Illness. All remaining Review of Systems questions can be considered negative unless otherwise specified. Past Medical/Surgical History Medical Problems: (1) Chest pain at rest (2) COPD (chronic obstructive pulmonary disease) (3) Emphysema (4) No significant past surgical history (5) Right wrist sprain (6) Right wrist sprain Family History Diabetes mellitus Hypertension Social History Smoking Status: Current Every Day Smoker Alcohol Use: occasionally Marital Status: Housing Status: lives with family Occupation Status: employed Current/Historical Medications Scheduled Albuterol Hfa (Ventolin Hfa), 2 PUFFS INH QID Omeprazole (Prilosec), 20 MG PO DAILY Ranitidine (Zantac), 300 MG PO HS Valacyclovir Hcl (Valtrex), 1 TAB PO TID Scheduled PRN Tramadol (Ultram), 1-2 TAB PO Q6 PRN for Pain Physical Exam Vital Signs Date Time Temp Pulse Resp B/P (MAP) Pulse Ox O2 Delivery O2 Flow Rate FiO2 07/14/17 19:05 82 20 117/79 98 Room Air 07/14/17 17:21 87 18 118/83 96 Room Air 07/14/17 15:30 75 16 99 Room Air 07/14/17 14:48 70 16 130/81 98 Room Air 07/14/17 13:52 36.5 86 18 127/84 97 Room Air Physical Exam VITAL SIGNS - Vital signs and nursing notes were reviewed. Stable. GENERAL - 56-year-old male appearing his stated age who is in no acute distress. Communicates well with provider and answers questions appropriately. SKIN - Without rashes. Slight erythema to the entire abdomen. Faint contact dermatitis. LUNGS - Chest wall symmetric without accessory muscle use, intercostals retractions, or central cyanosis. Normal vesicular breath sounds CTA B/L. No wheezes, rales, or rhonchi appreciated. CARDIAC - RRR with S1/S2. No murmur, rubs, or gallops appreciated. ABDOMEN - Abdominal contour slightly distended without pulsations or visible masses. BS normoactive all four quadrants. Diffusely tender and slightly tense. No fluid wave, Medical Decision & Procedures ER Provider Diagnostic Interpretation: CT OF THE ABDOMEN AND PELVIS WITH CONTRAST CLINICAL HISTORY: Abdominal pain and swelling. COMPARISON STUDY: CT of the abdomen and pelvis June 22, 2010. TECHNIQUE: Following IV administration of 120 mL of Optiray-320, axial images of the abdomen and pelvis were obtained from the lung bases to the proximal femurs. Images were reviewed in the axial, sagittal, and coronal planes. IV contrast was administered without complication. A dose lowering technique was utilized adhering to the principles of ALARA. Oral contrast was administered. CT DOSE: 303.14 mGy.cm FINDINGS: Groundglass opacities within the lower lungs favor atelectasis. There may be fatty infiltration of the liver. The spleen, adrenal glands, kidneys and pancreas are normal. There is no hydronephrosis. There is no biliary or pancreatic ductal dilatation. No peripancreatic or pericholecystic infiltration is present. Caliber and wall thickness of small and large bowel are normal. The appendix is normal. There is sigmoid diverticulosis without evidence for acute diverticulitis. There is no lymphadenopathy or abscess. There are no suspicious skeletal lesions. IMPRESSION: 1. No acute process within the abdomen or pelvis. 2. Normal appendix. No bowel obstruction. 3. Sigmoid diverticulosis without evidence for acute diverticulitis. Electronically signed by: Tal Flores M.D. 07/14/2017 5:18 PM Dictated Date/Time: 07/14/2017 5:13 PM Laboratory Results 07/14/17 14:51 Red Blood Count 4.83, Mean Corpuscular Volume 86.7, Mean Corpuscular Hemoglobin 30.8, Mean Corpuscular Hemoglobin Concent 35.6, Mean Platelet Volume 10.8, Neutrophils (%) (Auto) 51.5, Lymphocytes (%) (Auto) 37.7, Monocytes (%) (Auto) 6.7, Eosinophils (%) (Auto) 3.4, Basophils (%) (Auto) 0.5, Neutrophils # (Auto) 4.18, Lymphocytes # (Auto) 3.06, Monocytes # (Auto) 0.54, Eosinophils # (Auto) 0.28, Basophils # (Auto) 0.04 07/14/17 14:51 Test 07/14/17 14:51 07/14/17 15:30 07/14/17 17:45 07/14/17 18:10 White Blood Count 8.12 K/uL (4.8-10.8) Red Blood Count 4.83 M/uL (4.7-6.1) Hemoglobin 14.9 g/dL (14.0-18.0) Hematocrit 41.9 % (42-52) Mean Corpuscular Volume 86.7 fL (80-100) Mean Corpuscular Hemoglobin 30.8 pg (25-34) Mean Corpuscular Hemoglobin Concent 35.6 g/dl (32-36) Platelet Count 265 K/uL (130-400) Mean Platelet Volume 10.8 fL (7.4-10.4) Neutrophils (%) (Auto) 51.5 % Lymphocytes (%) (Auto) 37.7 % Monocytes (%) (Auto) 6.7 % Eosinophils (%) (Auto) 3.4 % Basophils (%) (Auto) 0.5 % Neutrophils # (Auto) 4.18 K/uL (1.4-6.5) Lymphocytes # (Auto) 3.06 K/uL (1.2-3.4) Monocytes # (Auto) 0.54 K/uL (0.11-0.59) Eosinophils # (Auto) 0.28 K/uL (0-0.5) Basophils # (Auto) 0.04 K/uL (0-0.2) RDW Standard Deviation 39.6 fL (36.4-46.3) RDW Coefficient of Variation 12.4 % (11.5-14.5) Immature Granulocyte % (Auto) 0.2 % Immature Granulocyte # (Auto) 0.02 K/uL (0.00-0.02) Prothrombin Time 10.4 SECONDS (9.0-12.0) Prothromb Time International Ratio 1.0 (0.9-1.1) Activated Partial Thromboplast Time 26.6 SECONDS (21.0-31.0) Partial Thromboplastin Ratio 1.0 Anion Gap 8.0 mmol/L (3-11) Est Creatinine Clear Calc Drug Dose 104.7 ml/min Estimated GFR () 118.6 Estimated GFR (Non- 102.3 BUN/Creatinine Ratio 19.5 (10-20) Calcium Level 9.3 mg/dl (8.5-10.1) Magnesium Level 2.2 mg/dl (1.8-2.4) Total Bilirubin 0.6 mg/dl (0.2-1) Direct Bilirubin < 0.1 mg/dl (0-0.2) Aspartate Amino Transf (AST/SGOT) 19 U/L (15-37) Alanine Aminotransferase (ALT/SGPT) 54 U/L (12-78) Alkaline Phosphatase 57 U/L (45-117) Total Creatine Kinase 65 U/L (39-308) Creatine Kinase MB 0.9 ng/ml (0.5-3.6) Creatine Kinase MB Ratio 1.4 (0-3.0) Total Protein 7.6 gm/dl (6.4-8.2) Albumin 4.2 gm/dl (3.4-5.0) Lipase 178 U/L (73-393) Urine Color YELLOW Urine Appearance CLEAR (CLEAR) Urine pH 6.5 (4.5-7.5) Urine Specific [place] 1.015 (1.000-1.030) Urine Protein NEG (NEG) Urine Glucose (UA) NEG (NEG) Urine Ketones NEG (NEG) Urine Occult Blood NEG (NEG) Urine Nitrite NEG (NEG) Urine Bilirubin NEG (NEG) Urine Urobilinogen NEG (NEG) Urine Leukocyte Esterase NEG (NEG) Influenza Type A (RT-PCR) Neg for Influ A (NEG) Influenza Type B (RT-PCR) Neg for Influ B (NEG) Venous Blood pH 7.37 (7.36-7.41) Venous Blood Partial Pressure CO2 44 mmHg (38.0-50.0) Venous Blood Partial Pressure O2 49 mmHg Venous Blood HCO3 25 mmol/L Venous Blood Oxygen Saturation 82.7 % Venous Blood Base Excess -1.0 mEq/L Test 07/14/17 19:03 Bedside Lactic Acid Venous < 0.30 mmol/L (0.90-1.70) Medications Administered Medications (Trade) Dose Ordered Sig/Jasmyn Route Start Time Stop Time Status Last Admin Dose Admin Morphine Sulfate (MoRPHine SULFATE INJ) 4 mg NOW STAT IV 07/14/17 14:30 07/14/17 14:35 DC 07/14/17 14:53 4 MG Morphine Sulfate (MoRPHine SULFATE INJ) 4 mg NOW STAT IV 07/14/17 17:24 07/14/17 17:25 DC 07/14/17 17:35 4 MG Valacyclovir HCl (Valtrex Tab) 1,000 mg NOW STAT PO 07/14/17 18:21 07/14/17 18:24 DC 07/14/17 19:08 1,000 MG Valacyclovir HCl (Valtrex Tab) 2,000 mg NOW STAT PO 07/14/17 18:21 07/14/17 18:24 DC 07/14/17 19:09 2,000 MG Tramadol HCl (Ultram Home Pack) 1 homepack UD STAT PO 07/14/17 18:21 07/14/17 18:24 DC 07/14/17 19:07 1 HOMEPACK Clotrimazole (Lotrimin 1% Crm) 1 appln NOW STAT EXT 07/14/17 18:21 07/14/17 18:24 DC 07/14/17 19:07 1 APPLN Medical Decision Patient was seen and evaluated as above. He presents to us today with diffuse abdominal pain. There is abdominal distention. The abdomen is slightly tense to my exam. IV access was initiated, and the above workup was performed. There is no concern leukocytosis, anemia or metabolic process. CT scan of the abdomen and pelvis were obtained with the use of intravenous and oral contrast. No acute process noted. I discussed the case with the attending physician and the decision was made to obtain a lactic acid, VBG, and influenza screen. These are pending. He was given morphine for pain. There is also a herpetic rash on the patient's right flank. This follows the dermatome around the right flank to the abdomen. There is a faint erythematous rash that extends to the umbilicus on the right side. He'll be given tramadol for pain at home, Valtrex for the herpetic lesions, as well as Lotrimin for the suspected ringworm on the leg. I did sign the case out to Luca Pablo PA-C. This was pending the lactic acid, VBG and influenza screen. Please refer to further documentation regarding his stay. In evaluation treatment this patient following differential diagnoses were entertained: Acute surgical abdomen, cholecystitis, cholelithiasis, acute appendicitis, perforated diverticuli, among others. Impression Primary Impression: Abdominal pain Additional Impression: Herpes zoster Departure Information Dispostion Home / Self-Care Condition GOOD Prescriptions Tramadol (Ultram) 50 Mg Tab 1-2 TAB PO Q6 Y for Pain, #15 TAB Prov: Benedict Hughes PA-C 07/14/17 Valacyclovir Hcl (VALTREX) 1 Gm Tab 1 TAB PO TID for 6 Days, #18 TAB Prov: Benedict Hughes PA-C 07/14/17 Referrals Blayne Machado M.D. (PCP) Patient Instructions My [facility] Additional Instructions You have been treated in the Emergency Department your Abdominal Pain. Laboratory results and imaging studies have ruled out any emergent causes for your abdominal pain which would warrant admission or surgery. You appear to have shingles on your R flank and abdomen, this can radiate around to cause in the entire dermatome as we discussed. For this: Valtrex 1 g (1000mg) 3 times daily (every 8 hours) for 7 days Tramadol for pain . NO driving with this. Lotrimin cream over the counter: Apply to affected area twice daily for 2 weeks (tinea cruris) or 4 weeks (tinea corporis, tinea pedis). For pain control, you can use the following [id number]-phheymx medicines (if >12 yo): - Regular strength (325mg/tab) Tylenol (acetaminophen) 2 tabs every 4-6 hours as needed. Do not exceed 12 tablets in a 24 hour period. Avoid taking more than 3 grams (3000 mg) of Tylenol per day. This includes any other sources of acetaminophen you may take on a regular basis. - Regular strength (200 mg/tab) Advil (ibuprofen) 1-2 tabs every 4-6 hours as needed. Do not exceed a dose of 3200 mg per day. Drink plenty of water and stay well hydrated. As with any trip to the Emergency Department, you should follow-up with your Primary Care Provider from today's visit. Results of your abdominal CT are as below. Return to the emergency department if your symptoms persist despite treatment plan outlined above or if the following symptoms occur: increased fevers, chills , worsening nausea/vomiting, blood in your stool or urine. CT OF THE ABDOMEN AND PELVIS WITH CONTRAST CLINICAL HISTORY: Abdominal pain and swelling. COMPARISON STUDY: CT of the abdomen and pelvis June 22, 2010. TECHNIQUE: Following IV administration of 120 mL of Optiray-320, axial images of the abdomen and pelvis were obtained from the lung bases to the proximal femurs. Images were reviewed in the axial, sagittal, and coronal planes. IV contrast was administered without complication. A dose lowering technique was utilized adhering to the principles of ALARA. Oral contrast was administered. CT DOSE: 303.14 mGy.cm FINDINGS: Groundglass opacities within the lower lungs favor atelectasis. There may be fatty infiltration of the liver. The spleen, adrenal glands, kidneys and pancreas are normal. There is no hydronephrosis. There is no biliary or pancreatic ductal dilatation. No peripancreatic or pericholecystic infiltration is present. Caliber and wall thickness of small and large bowel are normal. The appendix is normal. There is sigmoid diverticulosis without evidence for acute diverticulitis. There is no lymphadenopathy or abscess. There are no suspicious skeletal lesions. IMPRESSION: 1. No acute process within the abdomen or pelvis. 2. Normal appendix. No bowel obstruction. 3. Sigmoid diverticulosis without evidence for acute diverticulitis. Problem Qualifiers
[2017-07-14] MEDS ORDERED: TRAMADOL HCL 50 MG HOME PACK PO STA (18:21)
[2017-07-14] MEDS ORDERED: CLOTRIMAZOLE 1% CR 15 GM TUBE EXT STA (18:21)
[2017-07-14] MEDS ORDERED: TRAM-10 PO (18:27)
[2017-07-14] MEDS ORDERED: VALA1TAB31 PO (18:27)
[2017-07-14 18:57] LABS: INFLUENZA A PCR Neg for Influ A (NEG); INFLUENZA B PCR Neg for Influ B (NEG)
[2017-07-14 19:05] VITALS: BP 117/79; PULSE 82; O2SAT 98
--- NOTE | 2017-07-14 20:35 | EMERGENCY ROOM VISIT NOTE ---
ED Visit Note First contact with patient: 18:57 Care was turned over to me by Saul BUTLER. Please see his dictation for full history and physical. Patient remained stable while in the department. Lab work was pending at time of shift change. He did return with normal results. Patient was discharged with instructions to follow-up in the ED as needed. Start his Valtrex. Use the tramadol every 6 hours as needed. Home pack was provided. Problem List Medical Problems: (1) COPD (chronic obstructive pulmonary disease) Status: Chronic (2) Emphysema Status: Chronic (3) No significant past surgical history Status: Resolved (4) Right wrist sprain Status: Resolved (5) Right wrist sprain Status: Resolved Current/Historical Medications Scheduled Albuterol Hfa (Ventolin Hfa), 2 PUFFS INH QID Omeprazole (Prilosec), 20 MG PO DAILY Ranitidine (Zantac), 300 MG PO HS Valacyclovir Hcl (Valtrex), 1 TAB PO TID Scheduled PRN Tramadol (Ultram), 1-2 TAB PO Q6 PRN for Pain Allergies Coded Allergies: Oxycodone (Verified Adverse Reaction, Intermediate, ITCHINESS, 07/14/17) Vital Signs Date Time Temp Pulse Resp B/P (MAP) Pulse Ox O2 Delivery O2 Flow Rate FiO2 07/14/17 19:05 82 20 117/79 98 Room Air 07/14/17 17:21 87 18 118/83 96 Room Air 07/14/17 15:30 75 16 99 Room Air 07/14/17 14:48 70 16 130/81 98 Room Air 07/14/17 13:52 36.5 86 18 127/84 97 Room Air Laboratory Results 07/14/17 14:51 Red Blood Count 4.83, Mean Corpuscular Volume 86.7, Mean Corpuscular Hemoglobin 30.8, Mean Corpuscular Hemoglobin Concent 35.6, Mean Platelet Volume 10.8, Neutrophils (%) (Auto) 51.5, Lymphocytes (%) (Auto) 37.7, Monocytes (%) (Auto) 6.7, Eosinophils (%) (Auto) 3.4, Basophils (%) (Auto) 0.5, Neutrophils # (Auto) 4.18, Lymphocytes # (Auto) 3.06, Monocytes # (Auto) 0.54, Eosinophils # (Auto) 0.28, Basophils # (Auto) 0.04 07/14/17 14:51 Test 07/14/17 14:51 07/14/17 15:30 07/14/17 17:45 07/14/17 18:10 White Blood Count 8.12 K/uL (4.8-10.8) Red Blood Count 4.83 M/uL (4.7-6.1) Hemoglobin 14.9 g/dL (14.0-18.0) Hematocrit 41.9 % (42-52) Mean Corpuscular Volume 86.7 fL (80-100) Mean Corpuscular Hemoglobin 30.8 pg (25-34) Mean Corpuscular Hemoglobin Concent 35.6 g/dl (32-36) Platelet Count 265 K/uL (130-400) Mean Platelet Volume 10.8 fL (7.4-10.4) Neutrophils (%) (Auto) 51.5 % Lymphocytes (%) (Auto) 37.7 % Monocytes (%) (Auto) 6.7 % Eosinophils (%) (Auto) 3.4 % Basophils (%) (Auto) 0.5 % Neutrophils # (Auto) 4.18 K/uL (1.4-6.5) Lymphocytes # (Auto) 3.06 K/uL (1.2-3.4) Monocytes # (Auto) 0.54 K/uL (0.11-0.59) Eosinophils # (Auto) 0.28 K/uL (0-0.5) Basophils # (Auto) 0.04 K/uL (0-0.2) RDW Standard Deviation 39.6 fL (36.4-46.3) RDW Coefficient of Variation 12.4 % (11.5-14.5) Immature Granulocyte % (Auto) 0.2 % Immature Granulocyte # (Auto) 0.02 K/uL (0.00-0.02) Prothrombin Time 10.4 SECONDS (9.0-12.0) Prothromb Time International Ratio 1.0 (0.9-1.1) Activated Partial Thromboplast Time 26.6 SECONDS (21.0-31.0) Partial Thromboplastin Ratio 1.0 Anion Gap 8.0 mmol/L (3-11) Est Creatinine Clear Calc Drug Dose 104.7 ml/min Estimated GFR () 118.6 Estimated GFR (Non- 102.3 BUN/Creatinine Ratio 19.5 (10-20) Calcium Level 9.3 mg/dl (8.5-10.1) Magnesium Level 2.2 mg/dl (1.8-2.4) Total Bilirubin 0.6 mg/dl (0.2-1) Direct Bilirubin < 0.1 mg/dl (0-0.2) Aspartate Amino Transf (AST/SGOT) 19 U/L (15-37) Alanine Aminotransferase (ALT/SGPT) 54 U/L (12-78) Alkaline Phosphatase 57 U/L (45-117) Total Creatine Kinase 65 U/L (39-308) Creatine Kinase MB 0.9 ng/ml (0.5-3.6) Creatine Kinase MB Ratio 1.4 (0-3.0) Total Protein 7.6 gm/dl (6.4-8.2) Albumin 4.2 gm/dl (3.4-5.0) Lipase 178 U/L (73-393) Urine Color YELLOW Urine Appearance CLEAR (CLEAR) Urine pH 6.5 (4.5-7.5) Urine Specific [place] 1.015 (1.000-1.030) Urine Protein NEG (NEG) Urine Glucose (UA) NEG (NEG) Urine Ketones NEG (NEG) Urine Occult Blood NEG (NEG) Urine Nitrite NEG (NEG) Urine Bilirubin NEG (NEG) Urine Urobilinogen NEG (NEG) Urine Leukocyte Esterase NEG (NEG) Influenza Type A (RT-PCR) Neg for Influ A (NEG) Influenza Type B (RT-PCR) Neg for Influ B (NEG) Venous Blood pH 7.37 (7.36-7.41) Venous Blood Partial Pressure CO2 44 mmHg (38.0-50.0) Venous Blood Partial Pressure O2 49 mmHg Venous Blood HCO3 25 mmol/L Venous Blood Oxygen Saturation 82.7 % Venous Blood Base Excess -1.0 mEq/L Test 07/14/17 19:03 Bedside Lactic Acid Venous < 0.30 mmol/L (0.90-1.70) Medications Administered Medications (Trade) Dose Ordered Sig/Jasmyn Route Start Time Stop Time Status Last Admin Dose Admin Morphine Sulfate (MoRPHine SULFATE INJ) 4 mg NOW STAT IV 07/14/17 14:30 07/14/17 14:35 DC 07/14/17 14:53 4 MG Morphine Sulfate (MoRPHine SULFATE INJ) 4 mg NOW STAT IV 07/14/17 17:24 07/14/17 17:25 DC 07/14/17 17:35 4 MG Valacyclovir HCl (Valtrex Tab) 1,000 mg NOW STAT PO 07/14/17 18:21 07/14/17 18:24 DC 07/14/17 19:08 1,000 MG Valacyclovir HCl (Valtrex Tab) 2,000 mg NOW STAT PO 07/14/17 18:21 07/14/17 18:24 DC 07/14/17 19:09 2,000 MG Tramadol HCl (Ultram Home Pack) 1 homepack UD STAT PO 07/14/17 18:21 07/14/17 18:24 DC 07/14/17 19:07 1 HOMEPACK Clotrimazole (Lotrimin 1% Crm) 1 appln NOW STAT EXT 07/14/17 18:21 07/14/17 18:24 DC 07/14/17 19:07 1 APPLN Departure Information Impression Primary Impression: Abdominal pain Additional Impression: Herpes zoster Dispostion Home / Self-Care Condition GOOD Prescriptions Tramadol (Ultram) 50 Mg Tab 1-2 TAB PO Q6 Y for Pain, #15 TAB Prov: Benedict Hughes PA-C 07/14/17 Valacyclovir Hcl (VALTREX) 1 Gm Tab 1 TAB PO TID for 6 Days, #18 TAB Prov: Benedict Hughes PA-C 07/14/17 Referrals Blayne Machado M.D. (PCP) Forms Call Back Authorization, HOME CARE DOCUMENTATION FORM, IMPORTANT VISIT INFORMATION Patient Instructions My [facility] Additional Instructions You have been treated in the Emergency Department your Abdominal Pain. Laboratory results and imaging studies have ruled out any emergent causes for your abdominal pain which would warrant admission or surgery. You appear to have shingles on your R flank and abdomen, this can radiate around to cause in the entire dermatome as we discussed. For this: Valtrex 1 g (1000mg) 3 times daily (every 8 hours) for 7 days Tramadol for pain . NO driving with this. Lotrimin cream over the counter: Apply to affected area twice daily for 2 weeks (tinea cruris) or 4 weeks (tinea corporis, tinea pedis). For pain control, you can use the following qkhg-eyq-kxakzsp medicines (if >12 yo): - Regular strength (325mg/tab) Tylenol (acetaminophen) 2 tabs every 4-6 hours as needed. Do not exceed 12 tablets in a 24 hour period. Avoid taking more than 3 grams (3000 mg) of Tylenol per day. This includes any other sources of acetaminophen you may take on a regular basis. - Regular strength (200 mg/tab) Advil (ibuprofen) 1-2 tabs every 4-6 hours as needed. Do not exceed a dose of 3200 mg per day. Drink plenty of water and stay well hydrated. As with any trip to the Emergency Department, you should follow-up with your Primary Care Provider from today's visit. Results of your abdominal CT are as below. Return to the emergency department if your symptoms persist despite treatment plan outlined above or if the following symptoms occur: increased fevers, chills , worsening nausea/vomiting, blood in your stool or urine. CT OF THE ABDOMEN AND PELVIS WITH CONTRAST CLINICAL HISTORY: Abdominal pain and swelling. COMPARISON STUDY: CT of the abdomen and pelvis June 22, 2010. TECHNIQUE: Following IV administration of 120 mL of Optiray-320, axial images of the abdomen and pelvis were obtained from the lung bases to the proximal femurs. Images were reviewed in the axial, sagittal, and coronal planes. IV contrast was administered without complication. A dose lowering technique was utilized adhering to the principles of ALARA. Oral contrast was administered. CT DOSE: 303.14 mGy.cm FINDINGS: Groundglass opacities within the lower lungs favor atelectasis. There may be fatty infiltration of the liver. The spleen, adrenal glands, kidneys and pancreas are normal. There is no hydronephrosis. There is no biliary or pancreatic ductal dilatation. No peripancreatic or pericholecystic infiltration is present. Caliber and wall thickness of small and large bowel are normal. The appendix is normal. There is sigmoid diverticulosis without evidence for acute diverticulitis. There is no lymphadenopathy or abscess. There are no suspicious skeletal lesions. IMPRESSION: 1. No acute process within the abdomen or pelvis. 2. Normal appendix. No bowel obstruction. 3. Sigmoid diverticulosis without evidence for acute diverticulitis. Problem Qualifiers
== END 2017-07-14 19:34 | disposition home or self-care (01) ==
LOC: C.EDB 13:39 → C.EDC 19:34
DX: R10.9 Unspecified abdominal pain (principal); B02.9 Zoster without complications; J43.9 Emphysema, unspecified; K21.9 Gastro-esophageal reflux disease without esophagitis; F17.200 Nicotine dependence, unspecified, uncomplicated; Z83.3 Family history of diabetes mellitus; Z82.49 Family history of ischemic heart disease and other diseases of the circulatory system; Z79.899 Other long term (current) drug therapy

== ENCOUNTER → 2017-07-14 | Outpatient (CLI) | payer OTHER ==
[~2017-07-14] MED LIST changes: +CEPH500C PO; +DICY10CA55 PO; +OMEP40CA41 PO; +PRLSR20 PO; +RANI150T85 PO; +RANI300T2 PO; +SULF800T23 PO; +TRAM-10 PO; +TRAM-453 PO; +VALA1TAB31 PO; -VARE1PAK15 PO
[2017-07-14 13:14] LABS: BASO % 0.9 %; BASO ABS # 0.08 K/uL (0-0.2); EOS % 3.6 %; EOS ABS # 0.31 K/uL (0-0.5); HEMATOCRIT 45.1 % (42-52); HEMOGLOBIN 15.7 g/dL (14.0-18.0); IG# 0.02 K/uL (0.00-0.02); LYMPH % 34.7 %; LYMPH ABS # 2.96 K/uL (1.2-3.4); MEAN CELL VOLUME 87.6 fL (80-100); MEAN CORPUSCULAR HEMOGLOBIN 30.5 pg (25-34); MEAN CORPUSCULAR HGB CONC 34.8 g/dl (32-36); MONO % 7.2 %; MONO ABS # 0.61 K/uL (0.11-0.59); NEUT % 53.4 %; NEUT ABS # 4.55 K/uL (1.4-6.5); PLATELET COUNT 300 K/uL (130-400); RED CELL DISTRIBUTION WIDTH CV 12.3 % (11.5-14.5); RED CELL DISTRIBUTION WIDTH SD 39.7 fL (36.4-46.3); WHITE BLOOD COUNT 8.53 K/uL (4.8-10.8)
[2017-07-14 16:29] LABS: ALBUMIN 4.6 gm/dl (3.4-5.0); ALT/SGPT 59 U/L (12-78); AST/SGOT 21 U/L (15-37); BLOOD UREA NITROGEN 16 mg/dl (7-18); CALCIUM 9.6 mg/dl (8.5-10.1); CARBON DIOXIDE 28 mmol/L (21-32); CREATININE 0.79 mg/dl (0.60-1.40); GLUCOSE 90 mg/dl (70-99); POTASSIUM 3.8 mmol/L (3.5-5.1); SODIUM 137 mmol/L (136-145)
[2017-07-14 16:31] LABS: ALKALINE PHOSPHATASE 62 U/L (45-117); TOTAL PROTEIN 8.3 gm/dl (6.4-8.2)
== END | disposition home or self-care (01) ==
LOC: C.LAB1850 11:47
PROVIDERS: ATTEND Physician Assistant Medical
DX: R10.11 Right upper quadrant pain (principal)

== ENCOUNTER → 2017-08-01 | Outpatient (CLI) | payer OTHER ==
[~2017-08-01] MED LIST changes: -DIPH-437 PO; -LVQ750 PO; +OMEP40CA41 PO; +ZNTT/150 PO
--- NOTE | 2017-08-01 16:13 | DIAGNOSTIC IMAGING REPORT ---
ABDOMEN COMPLETE (US) CLINICAL HISTORY: Abdominal distention. Right lower quadrant pain. Weight loss. COMPARISON STUDY: CT of the abdomen and pelvis July 14, 2017. FINDINGS: No hepatic lesions are identified. There is no biliary ductal dilatation. The common bile duct measures 4 mm in caliber there is possible fatty infiltration of the liver. The gallbladder is normal. There are no gallstones. The pancreas is within normal limits. The size of the spleen is normal. The right kidney measures 11.4 cm and the left measures 12.4 cm. There is no hydronephrosis. No renal calculi or masses are identified. The caliber of the proximal abdominal aorta is normal. Visualized portions of the IVC are patent. IMPRESSION: 1. No gallstones or biliary ductal dilatation. 2. Suspected fatty infiltration of the liver. 3. No hydronephrosis. Electronically signed by: Tal Flores M.D. 08/01/2017 4:12 PM Dictated Date/Time: 08/01/2017 4:09 PM
[2017-08-01 16:30] LABS: HEMATOCRIT 43.7 % (42-52); HEMOGLOBIN 15.5 g/dL (14.0-18.0); MEAN CELL VOLUME 86.2 fL (80-100); MEAN CORPUSCULAR HEMOGLOBIN 30.6 pg (25-34); MEAN CORPUSCULAR HGB CONC 35.5 g/dl (32-36); MEAN PLATELET VOLUME 10.4 fL (7.4-10.4); PLATELET COUNT 289 K/uL (130-400); RED CELL DISTRIBUTION WIDTH CV 12.5 % (11.5-14.5); RED CELL DISTRIBUTION WIDTH SD 39.4 fL (36.4-46.3); WHITE BLOOD COUNT 10.69 K/uL (4.8-10.8)
[2017-08-01 16:57] LABS: ALBUMIN 4.3 gm/dl (3.4-5.0); ALT/SGPT 44 U/L (12-78); BLOOD UREA NITROGEN 12 mg/dl (7-18); CALCIUM 9.5 mg/dl (8.5-10.1); CARBON DIOXIDE 24 mmol/L (21-32); CREATININE 0.72 mg/dl (0.60-1.40); GLUCOSE 97 mg/dl (70-99); LIPASE 227 U/L (73-393); POTASSIUM 3.7 mmol/L (3.5-5.1); SODIUM 138 mmol/L (136-145)
[2017-08-01 17:00] LABS: ALKALINE PHOSPHATASE 53 U/L (45-117); AST/SGOT 20 U/L (15-37); TOTAL PROTEIN 7.8 gm/dl (6.4-8.2)
== END | disposition home or self-care (01) ==
LOC: C.ULTR 14:14
PROVIDERS: ATTEND Registered Nurse
DX: R14.0 Abdominal distension (gaseous) (principal); R10.31 Right lower quadrant pain; R63.4 Abnormal weight loss

== ENCOUNTER → 2017-08-11 | Day surgery (SDC) | payer OTHER ==
[2017-07-28 09:35] VITALS: Ht 172.7 cm; Wt 80.9 kg
[~2017-08-11] VITALS: Ht 172.7 cm; Wt 80.9 kg
[~2017-08-11] MED LIST changes: +LIDOCAINE HCL 2% 2 ML VIAL (20MG/ML) ONE; +MIDAZOLAM HCL 1 MG/ML 2ML VIAL ONE; +ONDANSETRON INJ 2 MG/ML 2 ML VIAL ONE; +PROPOFOL IV EMULSION 10 MG/ML 20 ML VIAL IV ONE; +SODIUM CHLORIDE 0.9% 500ML 500 ML IV ONE
[2017-08-11 11:50] VITALS: TEMP 36.5
--- NOTE | 2017-08-11 12:13 | Endo History and Physical ---
History & Physical Date of Service: Aug 11, 2017. Chief Complaint: ABDOMINAL DISTENTION, CHANGE IN STOOL, RT LOWER QUAD PAIN Referring Physician: DR LECHUGA History of Present Illness 56 yo CM who presents for EGD and colonoscopy secondary to abdominal distention , change in bowel habits and RLQ abdominal pain. Past Medical History COPD Past Surgical History Hx Cardiac Surgery: No Hx Internal Defibrillator: No Hx Pacemaker: No Hx Abdominal Surgery: No Hx of Implantable Prosthesis: No Hx Post-Op Nausea and Vomiting: No Hx Cancer Surgery: No Hx Thoracic Surgery: No Hx Orthopedic: Yes (L5 DISCECTOMY, LT ANKLE, LT/RT KNEE, RT SHOULDER) Hx Urinary Tract Surgery: No Family History IBD Social History Smoking Status: Current Every Day Smoker Hx Substance Use: No Hx Alcohol Use: Yes (OCCASIONAL) Allergies Coded Allergies: Oxycodone (Verified Adverse Reaction, Intermediate, ITCHINESS, 08/11/17) Current Medications Reported Home Medications Medications Dose Route/Sig Max Daily Dose Days Date Category Zantac (Ranitidine HCl) 150 Mg Tab 150 Mg PO BID 07/28/17 Reported Prilosec (Omeprazole) 40 Mg Cap 40 Mg PO QPM 07/28/17 Reported Ventolin Hfa (Albuterol) 200 Puffs/82417 Mcg Aers 2 Puffs INH BID 02/07/17 Reported Vital Signs Weight (Kilograms): 80.91 Height (Feet): 5 Height (Inches): 8 Date Time Temp Pulse Resp B/P (MAP) Pulse Ox O2 Delivery O2 Flow Rate FiO2 08/11/17 11:50 36.5 85 18 117/77 (90) 96 Room Air Physical Exam General Appearance: WD/WN, no apparent distress Respiratory/Chest: Auscultation: breath sounds normal Cardiovascular: Heart Auscultation: RRR Abdomen: Bowel Sounds: normal Inspection & Palpation: soft, non-distended, no tenderness, guarding & rebound Assessment and Plan Assessment: 56 yo CM who presents for EGD and colonoscopy secondary to abdominal distention , change in bowel habits and RLQ abdominal pain. Plan: Proceed with EGD and colonoscopy.
--- NOTE | 2017-08-11 13:32 | GI REPORT ---
Procedure Date: 08/11/2017 1:07 PM Procedure: Upper GI endoscopy Indications: Abdominal pain in the right lower quadrant, Abdominal bloating Medicines: Monitored Anesthesia Care Complications: No immediate complications. Estimated Blood Loss: Estimated blood loss: none. Procedure: Pre-Anesthesia Assessment: - Prior to the procedure, a History and Physical was performed, and patient medications and allergies were reviewed. The patient's tolerance of previous anesthesia was also reviewed. The risks and benefits of the procedure and the sedation options and risks were discussed with the patient. All questions were answered, and informed consent was obtained. Prior Anticoagulants: The patient has taken no previous anticoagulant or antiplatelet agents. ASA Grade Assessment: II - A patient with mild systemic disease. After reviewing the risks and benefits, the patient was deemed in satisfactory condition to undergo the procedure. After obtaining informed consent, the endoscope was passed under direct vision. Throughout the procedure, the patient's blood pressure, pulse, and oxygen saturations were monitored continuously. The scope was introduced through the mouth, and advanced to the second part of duodenum. The upper GI endoscopy was accomplished without difficulty. The patient tolerated the procedure well. Findings: The Z-line was irregular. Biopsies were taken with a cold forceps for histology. A small hiatal hernia was present. Biopsies were taken with a cold forceps in the gastric antrum for Helicobacter pylori testing. The examined duodenum was normal. Biopsies for histology were taken with a cold forceps for evaluation of celiac disease. Impression: - Z-line irregular. Biopsied. - Small hiatal hernia. - Normal examined duodenum. Biopsied. - Biopsies were taken with a cold forceps for Helicobacter pylori testing. Recommendation: - Resume previous diet. - Continue present medications. - Await pathology results. - Return to primary care physician as previously scheduled. Adryan Georges DO 08/11/2017 1:31:51 PM This report has been signed electronically. Note Initiated On: 08/11/2017 1:07 PM I attest to the content of the Intraoperative Record and orders documented therein, exceptions below
--- NOTE | 2017-08-11 13:57 | GI REPORT ---
Procedure Date: 08/11/2017 1:28 PM Procedure: Colonoscopy Indications: Change in bowel habits Medicines: Monitored Anesthesia Care Complications: No immediate complications. Estimated Blood Loss: Estimated blood loss: none. Procedure: Pre-Anesthesia Assessment: - Prior to the procedure, a History and Physical was performed, and patient medications and allergies were reviewed. The patient's tolerance of previous anesthesia was also reviewed. The risks and benefits of the procedure and the sedation options and risks were discussed with the patient. All questions were answered, and informed consent was obtained. Prior Anticoagulants: The patient has taken no previous anticoagulant or antiplatelet agents. ASA Grade Assessment: III - A patient with severe systemic disease. After reviewing the risks and benefits, the patient was deemed in satisfactory condition to undergo the procedure. After I obtained informed consent, the scope was passed under direct vision. Throughout the procedure, the patient's blood pressure, pulse, and oxygen saturations were monitored continuously. The scope was introduced through the anus and advanced to the terminal ileum. The colonoscopy was performed without difficulty. The patient tolerated the procedure well. The quality of the bowel preparation was good. The terminal ileum, ileocecal valve, appendiceal orifice, and rectum were photographed. Findings: The perianal and digital rectal examinations were normal. Two sessile polyps were found in the transverse colon and cecum. The polyps were 4 to 7 mm in size. These polyps were removed with a hot snare. Resection and retrieval were complete. Multiple small-mouthed diverticula were found in the sigmoid colon. Non-bleeding internal hemorrhoids were found during retroflexion. The hemorrhoids were small. Impression: - Two 4 to 7 mm polyps in the transverse colon and in the cecum, removed with a hot snare. Resected and retrieved. - Diverticulosis in the sigmoid colon. - Non-bleeding internal hemorrhoids. Recommendation: - Resume previous diet. - Continue present medications. - Repeat colonoscopy for surveillance based on pathology results. - Return to primary care physician as previously scheduled. Adryan Georges, DO 08/11/2017 1:57:03 PM This report has been signed electronically. Note Initiated On: 08/11/2017 1:28 PM I attest to the content of the Intraoperative Record and orders documented therein, exceptions below
--- NOTE | 2017-08-11 14:05 | Discharge Instructions ---
Endoscopy Patient Instructions Date / Procedure(s) Performed Aug 11, 2017. Colonoscopy, EGD Allergy Information Coded Allergies: Oxycodone (Verified Adverse Reaction, Intermediate, ITCHINESS, 08/11/17) Discharge Date / Findings Aug 11, 2017. EGD: Hiatal hernia, Biopsies of Duodenum, Gastric antrum and distal esophagus Colonoscopy: Colon polyps and Internal hemorrhoids Medication Instructions OK to resume all medications today as prescribed Reported Home Medications Medications Dose Route/Sig Max Daily Dose Days Date Category Zantac (Ranitidine HCl) 150 Mg Tab 150 Mg PO BID 07/28/17 Reported Prilosec (Omeprazole) 40 Mg Cap 40 Mg PO QPM 07/28/17 Reported Ventolin Hfa (Albuterol) 200 Puffs/15392 Mcg Aers 2 Puffs INH BID 02/07/17 Reported Provider Instructions Activity Restrictions - No exercising or heavy lifting for 24 hours. - Do not drink alcohol the day of the procedure. - Do not drive a car or operate machinery until the day after the procedure. - Do not make any important decisions or sign important papers in 24 hours after the procedure. Following Day: - Return to full activity which may include returning to work/school. Diet Start your diet with liquids and light foods (jello, soup, juice, toast). Then eat your usual diet if not nauseated. Treatment For Common After Affects For mild abdominal pain, bloating, or excessive gas: - Rest - Eat lightly - Lie on right side Follow-Up Information Follow-up with DR LECHUGA as scheduled Anesthesia Information What You Should Know You have had a procedure that required some medicine to reduce anxiety and discomfort. This treatment is called moderate sedation. After receiving the treatment, you may be sleepy, but you will be able to breathe on your own. The effects of the treatment may last for several hours. Follow these instructions along with Activity/Diet recommendations noted above: * Do NOT do anything where dizziness or clumsiness would be dangerous. * Rest quietly at home today, then you can be up and about tomorrow. * Have a responsible person stay with you the rest of today. * You may have had an I.V. today. If so, you may take the dressing off later today. Recommendations Call your doctor if: * Trouble breathing * Continuous vomiting for more than 24 hours * Temperature above 101 degrees * Severe abdominal pain or bloating * Pain not relieved by pain medicine ordered * There is increased drainage or redness from any incision * A large amount of rectal bleeding greater than 2-3 tablespoons. (If you had a polyp/s removed or have hemorrhoids, a small amount of blood - from the rectum is to be expected.) * You have any unanswered questions or concerns. IN THE EVENT OF A SERIOUS EMERGENCY, GO TO THE NEAREST EMERGENCY ROOM Your discharge instructions were prepared by provider Adryan Georges. Patient Instructions Signature Page rFanklin Nicholas Patient (or Guardian) Signature/Date: I have read and understand the instructions given to me by my caregivers. Caregiver/RN/Doctor Signature/Date: The above-named patient and/or guardian has received patient instructions on this date. + Original Patient Signature Page (only) stays with chart. Please make copy for patient.
--- NOTE | 2017-08-11 14:23 | Anesthesiology Progress Note ---
Anesthesia Post Op Note Date & Time Aug 11, 2017 at 14:23 Vital Signs Vital Signs Past 12 Hours Date Time Temp Pulse Resp B/P (MAP) Pulse Ox O2 Delivery O2 Flow Rate FiO2 08/11/17 14:10 80 20 108/72 (84) 95 Room Air 08/11/17 13:55 80 18 95/62 (73) 96 Room Air 08/11/17 11:50 36.5 85 18 117/77 (90) 96 Room Air Notes Mental Status: alert / awake / arousable, participated in evaluation Pt Amnestic to Procedure: Yes Nausea / Vomiting: adequately controlled Pain: adequately controlled Airway Patency, RR, SpO2: stable & adequate BP & HR: stable & adequate Hydration State: stable & adequate Anesthetic Complications: no major complications apparent
[2017-08-11 14:25] VITALS: BP 117/82; PULSE 73; O2SAT 98
== END | disposition home or self-care (01) ==
LOC: C.GI 11:16
PROVIDERS: ATTEND Internal Medicine
DX: R19.4 Change in bowel habit (principal); R10.31 Right lower quadrant pain; K64.8 Other hemorrhoids; R14.0 Abdominal distension (gaseous); K57.30 Diverticulosis of large intestine without perforation or abscess without bleeding; D12.3 Benign neoplasm of transverse colon; D12.0 Benign neoplasm of cecum; K44.9 Diaphragmatic hernia without obstruction or gangrene; J44.9 Chronic obstructive pulmonary disease, unspecified; F17.200 Nicotine dependence, unspecified, uncomplicated

== ENCOUNTER → 2017-11-06 | Outpatient (CLI) | payer OTHER ==
[~2017-11-06] MED LIST changes: +DICY10CA55 PO; -LIDOCAINE HCL 2% 2 ML VIAL (20MG/ML) ONE; -MIDAZOLAM HCL 1 MG/ML 2ML VIAL ONE; -ONDANSETRON INJ 2 MG/ML 2 ML VIAL ONE; -PROPOFOL IV EMULSION 10 MG/ML 20 ML VIAL IV ONE; +RANI150T85 PO; -SODIUM CHLORIDE 0.9% 500ML 500 ML IV ONE; -ZNTT/150 PO
[2017-11-06 17:10] LABS: BASO % 0.6 %; BASO ABS # 0.05 K/uL (0-0.2); EOS % 3.3 %; EOS ABS # 0.29 K/uL (0-0.5); HEMATOCRIT 40.4 % (42-52); HEMOGLOBIN 14.7 g/dL (14.0-18.0); IG# 0.02 K/uL (0.00-0.02); LYMPH % 40.7 %; LYMPH ABS # 3.63 K/uL (1.2-3.4); MEAN CELL VOLUME 86.5 fL (80-100); MEAN CORPUSCULAR HEMOGLOBIN 31.5 pg (25-34); MEAN CORPUSCULAR HGB CONC 36.4 g/dl (32-36); MEAN PLATELET VOLUME 10.7 fL (7.4-10.4); MONO % 5.8 %; MONO ABS # 0.52 K/uL (0.11-0.59); NEUT % 49.4 %; NEUT ABS # 4.41 K/uL (1.4-6.5); PLATELET COUNT 283 K/uL (130-400); RED CELL DISTRIBUTION WIDTH CV 12.9 % (11.5-14.5); WHITE BLOOD COUNT 8.92 K/uL (4.8-10.8)
[2017-11-06 17:48] LABS: BLOOD UREA NITROGEN 16 mg/dl (7-18); CALCIUM 8.7 mg/dl (8.5-10.1); CARBON DIOXIDE 25 mmol/L (21-32); CREATININE 0.79 mg/dl (0.60-1.40); GLUCOSE 125 mg/dl (70-99); POTASSIUM 3.5 mmol/L (3.5-5.1); SODIUM 139 mmol/L (136-145)
== END | disposition home or self-care (01) ==
LOC: C.LAB 16:10
PROVIDERS: ATTEND Surgery
DX: Z01.812 Encounter for preprocedural laboratory examination (principal); K42.9 Umbilical hernia without obstruction or gangrene; R14.0 Abdominal distension (gaseous)

== ENCOUNTER → 2017-11-16 | Day surgery (SDC) | payer OTHER ==
[2017-11-07 11:16] VITALS: BMI 26.0
[~2017-11-16] VITALS: Ht 172.7 cm; Wt 77.0 kg
[~2017-11-16] MED LIST changes: +ATROPINE SULFATE 0.1 MG/ML 5ML SYR IV PRN; +BUPIVACAINE 0.5 % 5 MG/1 ML MPF 30ML VIAL ONE; +CEFAZOLIN 2000MG IV PUSH 15 ML IV SCH; +DEXAMETHASONE SOD INJ 4 MG/ML VIAL ONE; +EpHEDrine SULFATE INJ 50 MG/ML AMP IV PRN; +EpINEphrine INJ 1MG/ML AMP 1 MG/ML AMP INJ ONE; +FENTANYL CITRATE INJ 50 MCG/1 ML 2 ML VIAL ONE; +GLYCOPYRROLATE INJ 0.2 MG/ML VIAL ONE; +LACTATED RINGER'S 1000ML 1,000 ML IV SCH; +LARYING-O-JET KIT (LTA) ONE; +LIDOCAINE HCL 2% 2 ML VIAL (20MG/ML) ONE; +MIDAZOLAM HCL 1 MG/ML 2ML VIAL ONE; +NEOSTIGMINE METHYLSULFATE 5 MG/5 ML SYR ONE; -OMEP40CA41 PO; +ONDANSETRON INJ 2 MG/ML 2 ML VIAL IV PRN; +ONDANSETRON INJ 2 MG/ML 2 ML VIAL ONE; +PHENYLEPHRINE 100MCG/ML 5ML SYR IV PRN; +PHENYLEPHRINE 100MCG/ML 5ML SYR ONE; +PROPOFOL IV EMULSION 10 MG/ML 20 ML VIAL ONE; -RANI150T85 PO; +ROCURONIUM BROMIDE 10 MG/ML 5 ML VIAL ONE; +SODIUM CHLORIDE 0.9% 1000ML 1,000 ML IV SCH; +TRAM-453 PO
[2017-11-16 10:20] VITALS: BP 143/86; PULSE 73; TEMP 36.6; O2SAT 97; Ht 172.7 cm; Wt 77.0 kg
--- NOTE | 2017-11-16 11:11 | History & Physical Bridge Note ---
H&P Re-Evaluation Bridge Note: I have examined the patient, reviewed the History & Physical and in the interval since the performance of the History & Physical I have noted the following changes of clinical significance: No changes noted
--- NOTE | 2017-11-16 12:39 | [facility] Post Operative Brief Note ---
Immediate Operative Summary Operative Date November 16, 2017. Pre-Operative Diagnosis Umbilical Hernia Post-Operative Diagnosis Umbilical Hernia Procedure(s) Performed Diagnostic Laparoscopy with Repair of Umbilical Hernia Surgeon Dr Hammond Campaign Associate Surgeon(s) Melissa Gomez PA-C Estimated Blood Loss 5cc Findings Consistent with Post-Op Diagnosis Specimens None as per surgeon Anesthesia Type General
--- NOTE | 2017-11-16 12:44 | [facility] Operative Report ---
Operative Report Operative Date November 16, 2017. Pre-Operative Diagnosis Umbilical Hernia; abdominal pain Post-Operative Diagnosis Umbilical Hernia; small hiatal hernia Procedure(s) Performed Diagnostic Laparoscopy with Repair of Umbilical Hernia Surgeon Dr Hammond Licensing Registration Examiner Surgeon(s) Melissa Gomez PA-C Estimated Blood Loss 5cc Specimens None as per surgeon Anesthesia Type General Description of Procedure After informed consent was obtained the patient was taken to the operating room and placed in supine position. After successful intubation the abdomen was shaved and sterilely prepped and draped in usual fashion. I began with a curvilinear infraumbilical incision with a 15 blade scalpel. This was carried down through the soft tissue to the fascia using electrocautery. A Ally was used to come around the superior aspect of the umbilicus. The umbilical stalk was then divided using electrocautery revealing an approximately 1 cm umbilical hernia. I placed 0 Vicryl stay sutures in the hernia itself. I then used blunt finger penetration to pop through the hernia sac and into the abdominal cavity. A 12 mm Kahn trocar was placed and the abdomen was insufflated to 18 mmHg.. The laparoscope was inserted and the abdomen examined 360. We placed an upper midline 5 mm trocar. We examined the liver gallbladder stomach spleen small and large bowel etc. There was a very small hiatal hernia present but there was no gastric incarceration. All peritoneal surfaces looked normal as did the gallbladder liver small bowel etc. There was no inguinal hernias. We did look into the pelvis after placing the patient in Trendelenburg position and again no other abnormalities were seen. Omentum appeared normal. Once we are satisfied there was no intra-abdominal pathology we then removed the trochars and desufflated the abdomen. I closed the hernia defect using #1 Ethibond in interrupted [id number] fashion. The wound was then thoroughly irrigated. I reattach the umbilical stalk using 0 Vicryl. The wound was then closed in multiple layers using 3-0 Vicryl for deep layers and 4-0 Monocryl for skin. Marcaine was injected around the incisions for postoperative analgesia and skin glue used as a dressing. The patient was awakened extubated and transferred to recovery in stable condition. My physician engineering inspection assistant was present throughout the entire case. She helped with exposure for trocar placement. She helped run the camera. She helped with exposure for the hernia repair as well as wound closure. I attest to the content of the Intraoperative Record and any orders documented therein. Any exceptions are noted below.
--- NOTE | 2017-11-16 12:51 | Discharge Instructions ---
Discharge Instructions Date of Service November 16, 2017. Admission Reason for Admission: Abdominal Pain, Umbilical Hernia Discharge Discharge Diagnosis / Problem: Abdominal Pain, Umbilical Hernia Discharge Goals Goal(s): Decrease discomfort, Improve function Activity Recommendations Activity Limitations: as noted below Lifting Limitations: no more than 10 pounds Exercise/Sports Limitations: until after follow-up appointment May Resume Sexual Activity: after follow-up appointment Shower/Bathe: tomorrow Driving or Machine Use: resume 1 day after discharge . Instructions / Follow-Up Instructions / Follow-Up You have surgical glue, Dermabond, over your incisions. Please do not soak or scrub your incisions. Please follow-up with Dr. Hammond in the General Surgery Clinic in 1-2 weeks. Please call the office to make an appointment if you do not have one already. Please call the General Surgery Clinic at [phone] with any questions or concerns. Current Hospital Diet Patient's current hospital diet: Discharge Diet Recommended Diet: Regular Diet Procedures Procedures Performed: Diagnostic Laparoscopy with Repair of Umbilical Hernia Pending Studies Studies pending at discharge: no Medical Emergencies . Who to Call and When: Medical Emergencies: If at any time you feel your situation is an emergency, please call 911 immediately. . Non-Emergent Contact Non-Emergency issues call your: Primary Care Provider, Surgeon Call Non-Emergent contact if: temperature is above 101.5, your pain is not controlled, wound has increased drainage, wound has increased redness . "Provider Documentation" section prepared by Melissa Gomez. . [place] Drug Monitoring Program Search Results: patient reviewed within database, no issues identified
[2017-11-16] MEDS: HYDROmorphone INJ 2 MG/ML SYR/VIAL IV PRN ×5 (12:58→13:28)
--- NOTE | 2017-11-16 13:44 | Anesthesiology Progress Note ---
Anesthesia Post Op Note Date & Time November 16, 2017 at 13:43 Vital Signs Pain Intensity: 5 Vital Signs Past 12 Hours Date Time Temp Pulse Resp B/P (MAP) Pulse Ox O2 Delivery O2 Flow Rate FiO2 11/16/17 13:35 60 16 100/70 96 Nasal Cannula 3 11/16/17 13:25 36.7 62 16 110/77 96 Nasal Cannula 3 11/16/17 13:15 62 16 108/59 92 Nasal Cannula 3 11/16/17 13:05 65 16 109/74 96 Oxymask 10 11/16/17 12:59 67 16 119/74 95 Oxymask 10 11/16/17 12:49 36.2 73 16 137/74 97 Oxymask 10 11/16/17 10:20 36.6 73 16 143/86 (105) 97 Room Air Notes Mental Status: alert / awake / arousable, participated in evaluation Pt Amnestic to Procedure: Yes Nausea / Vomiting: adequately controlled Pain: adequately controlled Airway Patency, RR, SpO2: stable & adequate BP & HR: stable & adequate Hydration State: stable & adequate Anesthetic Complications: no major complications apparent
[2017-11-16 14:04] VITALS: BP 107/70; PULSE 66; TEMP 36.4; O2SAT 97
[2017-11-16 14:34] VITALS: BP 110/70; PULSE 66; O2SAT 96
[2017-11-16 15:04] VITALS: BP 111/67; PULSE 68; TEMP 36.3; O2SAT 95
== END | disposition home or self-care (01) ==
LOC: C.ACU 09:47
PROVIDERS: ATTEND Surgery
DX: K42.9 Umbilical hernia without obstruction or gangrene (principal); K44.9 Diaphragmatic hernia without obstruction or gangrene; R14.0 Abdominal distension (gaseous); J44.9 Chronic obstructive pulmonary disease, unspecified; K21.9 Gastro-esophageal reflux disease without esophagitis; M19.90 Unspecified osteoarthritis, unspecified site; R56.9 Unspecified convulsions; I25.2 Old myocardial infarction; F17.210 Nicotine dependence, cigarettes, uncomplicated; Z87.01 Personal history of pneumonia (recurrent); Z86.69 Personal history of other diseases of the nervous system and sense organs; Z86.14 Personal history of Methicillin resistant Staphylococcus aureus infection; Z86.19 Personal history of other infectious and parasitic diseases; Z82.49 Family history of ischemic heart disease and other diseases of the circulatory system; Z88.5 Allergy status to narcotic agent

== ENCOUNTER 2018-02-10 12:23 | Emergency (ER) | payer OTHER ==
[~2018-02-10] VITALS: Ht 172.7 cm; Wt 78.6 kg
[~2018-02-10 12:23] MED LIST changes: -ATROPINE SULFATE 0.1 MG/ML 5ML SYR IV PRN; -BUPIVACAINE 0.5 % 5 MG/1 ML MPF 30ML VIAL ONE; -CEFAZOLIN 2000MG IV PUSH 15 ML IV SCH; -DEXAMETHASONE SOD INJ 4 MG/ML VIAL ONE; -EpHEDrine SULFATE INJ 50 MG/ML AMP IV PRN; -EpINEphrine INJ 1MG/ML AMP 1 MG/ML AMP INJ ONE; -FENTANYL CITRATE INJ 50 MCG/1 ML 2 ML VIAL ONE; -GLYCOPYRROLATE INJ 0.2 MG/ML VIAL ONE; -LACTATED RINGER'S 1000ML 1,000 ML IV SCH; -LARYING-O-JET KIT (LTA) ONE; -LIDOCAINE HCL 2% 2 ML VIAL (20MG/ML) ONE; -MIDAZOLAM HCL 1 MG/ML 2ML VIAL ONE; -NEOSTIGMINE METHYLSULFATE 5 MG/5 ML SYR ONE; -ONDANSETRON INJ 2 MG/ML 2 ML VIAL IV PRN; -ONDANSETRON INJ 2 MG/ML 2 ML VIAL ONE; -PHENYLEPHRINE 100MCG/ML 5ML SYR IV PRN; -PHENYLEPHRINE 100MCG/ML 5ML SYR ONE; -PROPOFOL IV EMULSION 10 MG/ML 20 ML VIAL ONE; -ROCURONIUM BROMIDE 10 MG/ML 5 ML VIAL ONE; -SODIUM CHLORIDE 0.9% 1000ML 1,000 ML IV SCH; -TRAM-453 PO
[2018-02-10 12:28] VITALS: BP 100/68; PULSE 91; TEMP 36.7; O2SAT 97; Ht 172.7 cm; Wt 78.6 kg
[2018-02-10] MEDS ORDERED: SULF800T23 PO (12:42)
[2018-02-10] MEDS ORDERED: CEPH500C PO (12:42)
--- NOTE | 2018-02-10 17:27 | EMERGENCY ROOM VISIT NOTE ---
History First contact with patient: 12:32 Chief Complaint: BITE Stated Complaint: SPIDER BITE History of Present Illness The patient is a 57 year old male who presents to the Emergency Room with complaints of an infection of the right inner thigh. The patient believes that he may have been bitten by a spider last night. He reports that it quickly became swollen and with a pus pocket in the middle. The patient does report a prior history of MRSA that required hospitalization and I&D procedure. He denies any significant pain at this time, rating his discomfort a 1 out of 10. Tetanus immunization is up-to-date. Review of Systems 10 system review was performed and was negative except for pertinent positives and negatives as indicated in history of present illness Past Medical/Surgical History Medical Problems: (1) Chest pain at rest (2) COPD (chronic obstructive pulmonary disease) (3) Emphysema (4) No significant past surgical history (5) Right wrist sprain (6) Right wrist sprain Family History Diabetes mellitus Hypertension Social History Smoking Status: Current Every Day Smoker Alcohol Use: occasionally Marital Status: Housing Status: lives with family Occupation Status: employed Current/Historical Medications Scheduled Albuterol Hfa (Ventolin Hfa), 2 PUFFS INH BID Cephalexin Monohydrate (Keflex), 500 MG PO QID Sulfa/Trimethoprim (Bactrim Ds 800MG/160MG), 1 TAB PO BID Scheduled PRN Dicyclomine Hcl (Bentyl), Unknown Dose PO BID PRN for ABDOMINAL PAIN Physical Exam Vital Signs Date Time Temp Pulse Resp B/P (MAP) Pulse Ox O2 Delivery O2 Flow Rate FiO2 02/10/18 12:28 36.7 91 18 100/68 97 Room Air Physical Exam CONSTITUTIONAL: Healthy and well nourished. Alert and oriented X 3 with positive affect. HEENT: Normocephalic, atraumatic. Pupils equal, round and reactive. NECK: Full active range of motion without discomfort. MUSCULOSKELETAL: Full range of motion of all joints without discomfort. INTEGUMENTARY: Examination of the right medial mid thigh shows a posture with mild surrounding erythema. No significant induration or drainage noted. No proximal lymphangitic streaking. LYMPHATICS: No right inguinal adenopathy. NEUROLOGIC: No focal neurologic deficits noted. Medical Decision & Procedures ED Course Patient history and physical exam were performed. Nurse's notes were reviewed. Vital signs were reviewed and were normal. The patient will be provided prescriptions for Keflex and Bactrim DS antibiotics. He was encouraged to keep the wound clean and covered with an antibiotic ointment and dressing. He was instructed to return for any significantly worsening infection, induration, red streaks or fever. The patient was happy with plan of care, voiced understanding of all discharge instructions, and denied any pain at the time of discharge. Medical Decision Medication Reconcilliation Current Medication List: was personally reviewed by me Blood Pressure Screening Patient's blood pressure: Normal blood pressure Impression Primary Impression: Cellulitis of right thigh Departure Information Dispostion Home / Self-Care Condition GOOD Prescriptions Sulfa/Trimethoprim (Bactrim Ds 800MG/160MG) Tab 1 TAB PO BID for 7 Days, #14 TAB Prov: Lawrence Cannon PA 02/10/18 Cephalexin Monohydrate (Keflex) 500 Mg Cap 500 MG PO QID for 7 Days, #28 CAP Prov: Lawrence Cannon PA 02/10/18 Forms HOME CARE DOCUMENTATION FORM, IMPORTANT VISIT INFORMATION Patient Instructions [facility] Additional Instructions Complete all Keflex and Bactrim DS antibiotics as prescribed. Keep wound clean and covered with an antibiotic ointment and dressing until it heals. Ibuprofen or Tylenol as needed for pain. Return to the emergency department for any significantly worsening infection, red streaks or fever.
== END 2018-02-10 12:53 | disposition home or self-care (01) ==
LOC: C.EDB 12:23 → C.EDD 12:53
DX: L03.115 Cellulitis of right lower limb (principal); J43.9 Emphysema, unspecified; F17.200 Nicotine dependence, unspecified, uncomplicated

== ENCOUNTER 2019-05-27 12:23 | Inpatient (IN) ==
[2019-05-27] MEDS ORDERED: VANCOMYCIN CONSULT ACTIVE PRN (13:50)
[2019-05-27] MEDS ORDERED: MAGNESIUM HYDROXIDE SUSP 30 ML UDC PO PRN (13:50)
[2019-05-27] MEDS ORDERED: ONDANSETRON INJ 2 MG/ML 2 ML VIAL IV PRN (13:50)
[2019-05-27 14:30] LABS: Basophils # (auto) 0.06 K/uL (0-0.2); Basophils % (auto) 0.7 %; Eosinophils # (auto) 0.17 K/uL (0-0.5); Hematocrit (blood only) 40.5 % (42-52); Hemoglobin 14.1 g/dL (14.0-18.0); Immature Granulocytes # (auto) 0.01 K/uL (0.00-0.02); Immature Granulocytes % (auto) 0.1 %; Lymphocytes # (auto) 2.83 K/uL (1.2-3.4); Lymphocytes % (auto) 33.3 %; Mean Corpuscular Hemoglobin 30.9 pg (25-34); Mean Corpuscular Hgb Conc 34.8 g/dL (32-36); Mean Corpuscular Volume 88.8 fL (80-100); Mean Platelet Volume 10.1 fL (7.4-10.4); Monocytes % (auto) 5.9 %; Neutrophils # (auto) 4.93 K/uL (1.4-6.5); Platelet Count 336 K/uL (130-400); RDW Standard Deviation 41.9 fL (36.4-46.3); Red Blood Count 4.56 M/uL (4.7-6.1)
[2019-05-27 14:58] LABS: BUN Creatinine Ratio 13.5 (10-20); Blood Urea Nitrogen 10 mg/dl (7-18); Calcium 9.3 mg/dl (8.5-10.1); Carbon Dioxide 24 mmol/L (21-32); Chloride 107 mmol/L (98-107); Est GFR (African American) 120.2; Est GFR (Non-African American) 103.7; Glucose 104 mg/dl (70-99); Magnesium 2.2 mg/dl (1.8-2.4); Potassium 3.3 mmol/L (3.5-5.1); Sodium 140 mmol/L (136-145)
[2019-05-27 14:59] LABS: Phosphorus 3.9 mg/dl (2.5-4.9)
[2019-05-27] MEDS ORDERED: PATIENT'S HEIGHT AND/OR WEIGHT NEEDED SCH (15:00)
[2019-05-27] MEDS ORDERED: VANCOMYCIN HCL 1,750 MG in SODIUM CHLORIDE 0.9% 500 ML IV ONE (15:15)
--- NOTE | 2019-05-27 15:31 | History & Physical Report ---
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 Pt was seen in the office by Ms. Wisdom on 05/24 for R knee pain, redness, and swelling with developing sores over the last 2 weeks. No fever or chills, n/v. Pt has hx of a L septic knee in 2009 which required surgical intervention with Dr. Houser and prolonged IV abx. He was concerned because the sx he has been having were similar to that episode. Labs were done and wound cx was sent on 05/24. Pt was started on bactrim at that time. Pt noted that he placed gore on his knee on 05/24 to monitor progress. Over the weekend, there was a slight regression of redness noted from lines made on 05/24, however pt developed a new sore and had worsening pain. He is not able to bend his R knee at all due to pain now. Swelling was not worse, but it did not improve. He started to have chills, but no fever. Pt also noted nausea w/o emesis, but this has happened in the past with bactrim. He has baseline diarrhea related to "colitis" and this was unchanged. Pt returned for f/u with Ms. Wisdom today. Dr. Betts was in the office and advised pt to be admitted for IV abx and ortho c/s given his hx. Pt denies SOB, chest pain, abd pain. Allergies Allergy/AdvReac Type Severity Reaction Status Date / Time oxycodone AdvReac Intermediate ITCHINESS Verified 05/27/19 10:47 Home Medications Home Medications Medication Instructions Recorded Confirmed Type fluocinonide 0.1 % topical cream 1 appln TOPICAL DAILY #1 gm 02/13/19 05/27/19 History albuterol sulfate 90 mcg/actuation 2 puff INHALATION Q6H PRN #18 gm 05/24/19 05/27/19 Rx aerosol inhaler Past Med/Surg History Medical History Closed head injury with concussion (Inactive) Hiatal hernia History of colitis Knee effusion, left (Inactive) Psoriatic arthritis Seizure x1 in 2005 - [facility] in [place] - "i had a small clot in my brain that made me have a seizure" - cause of clot? reports he was on AC x 3 weeks - no residual effects - no recurrence of seizures - no neurologist Work related injury (Inactive) Surgical History History of anesthesia reaction slow to wake History of ankle surgery left - harware present History of colonoscopy with polypectomy History of esophagogastroduodenoscopy (EGD) History of herniorrhaphy umbilical History of lumbar surgery History of repair of ACL bl History of shoulder surgery rt - hardware present History of tooth extraction Family History Father Family history of diabetes mellitus Diabetes Cardiac disorder Mother Family history of diabetes mellitus Diabetes Cardiac disorder Other Asthma Social History (Updated 05/27/19 @ 15:13 by Marge Lemus DO) Preferred Language: Polish Communication Ability: Effective Hand Molder Meat Required: No Beliefs That Will Affect Care: None Current Living Situation: Spouse Other Information That Helps Us Care for You: No Feels Safe at Home: Yes Safety Concerns: Feels Safe At This Time Smoking Status: Current every day smoker Tobacco Type: cigarettes ; Cigarettes Per Day: 10 ; Do You Dip or Chew Tobacco: Yes ; Second Hand Exposure: Yes ; Hx Alcohol Use: Yes Alcohol type: beer Alcohol Intake Frequency Comment: states 1-2 beers a week, a 6 pack lasts a month Hx Substance Use: No Review of Systems Review of Systems: Pertinent positives and negatives reviewed in HPI--all others negative Physical Exam Constitutional: WD/WN, vitals as above Eyes: normal visual gil by confrontation and + anicteric sclerae Neck: normal visual inspection and trachea midline Respiratory: normal respiratory effort, lungs clear to auscultation Cardiovascular: Rate/Rhythm: regular rate and regular rhythm Gastrointestinal (Abdomen): Inspection/Auscultation: abdomen not distended Percussion/Palpation: abdomen soft; abdomen nontender Musculoskeletal: Head/Neck/Chest: normocephalic and head atraumatic R patellar edema, peripheral pulses intact Skin: redness located on and around patella with a dense central region that has a pustule with pus noted Pustule is closed, no purulence or bleeding Ink gore were made by pt on 05/24 and have slight regression Marker was made by myself on 05/27 TTP, even to marker Neurologic: awake; not confused Speech / Cognition: normal speech Psychiatric: A+Ox3, euthymic affect Results & Data Vital Signs (Past 12 Hours) Vital Signs Temp Pulse Resp BP Pulse Ox 05/27/19 13:32 36.3 C L 102 H 18 126/73 97 Code Status & VTE Plan Code Status Full code VTE Prophylaxis Plan VTE Prophylaxis will be ordered: Yes PG Care Time/CCT Total # of Minutes Spent Total Time Spent with Patient: Total time spent is greater than 50% in coordination of care (as documented) at patient's floor/unit and/or counseling patient:
[2019-05-27] MEDS ORDERED: POTASSIUM CHLORIDE 20 MEQ TABCR PO STA (15:43)
[2019-05-27] MEDS ORDERED: ETHYL CHLORIDE AER SPR 100 ML CAN EXT ONE (15:45)
--- NOTE | 2019-05-27 15:56 | Pharmacy Report ---
Pharmacy Abx Initial Consult - Date of Service May 27, 2019 - Pharmacy Dosing Scope Date of Consult: 05/27/19 Consultation requested by: Dr. Lemus Pharmacy is consulted to initiate vancomycin IV dosing therapy, order appropriate labs and adjust drug dose/frequency. - Subjective The patient is a 58 year old M admitted on 05/27/19 13:13. - Objective Height: 5 ft 8 in Weight: 71 kg Vital Signs (Past 12hrs): Vital Signs Temp Pulse Resp BP Pulse Ox 05/27/19 13:32 36.3 C L 102 H 18 126/73 97 Lab Results (24hrs): Laboratory Tests (24 Hours) 05/27/19 05/27/19 14:10 14:10 WBC 8.50 Neut # (Auto) 4.93 Creatinine 0.73 Est Cr Clr Drug Dosing Not Reportable Micro Results: 05/27/19 14:16 Aerobic Blood Culture - Pending Blood Anaerobic Blood Culture - Pending 05/27/19 14:09 Aerobic Blood Culture - Pending Blood Anaerobic Blood Culture - Pending - Assessment & Plan Assessment 58 year old M receiving vancomycin for positive MRSA culture of right knee. Patient seen by primary care provider on 05/27 with 2 week history of right knee pain with intermittent pustules forming on the right anterior knee. He was prescribed Bactrim on 05/24, but his symptoms have worsened since that time. It was decided to admit the patient to [facility] for IV antibiotics and orthopedic consultation. Patient afebrile on admission. WBC of 8.5, SCr: 0.73 mg/dL (appears to be at baseline) Microbiology: - Blood x 2 (05/27): pending - Right knee (05/24): MRSA (blount-sensitive) Plan Vancomycin for treatment of MRSA cellulitis of right knee Vancomycin IV * Estimated PK Parameters: Vd 0.7 L/kg, Hollis 0.094 hr-1, t1/2 7.4 hr * Loading dose: 1750 mg (25 mg/kg) * Maintenance dose: 1000 mg IV (14 mg/kg) every 8 hours * Goal trough level for cellulitis : 10 to 20 mcg/mL * Trough level ordered for 05/29/19 @0730 Pharmacy will continue to follow and will adjust dose/frequency as necessary. Thank you.
[2019-05-27] MEDS: NSS + 20MEQ KCL 20 MEQ/1,000 ML BAG IV SCH (16:10)
[2019-05-27] MEDS: ACETAMINOPHEN 325 MG TAB PO PRN (16:28)
[2019-05-27] MEDS: MoRPHine SULFATE 2 MG/ML CARP IV PRN ×2 (17:19→21:37)
--- NOTE | 2019-05-27 18:06 | Infectious Disease Consult ---
Date of Consultation May 27, 2019 Assessment & Plan (1) Septic prepatellar bursitis of right knee: Patient with septic prepatellar bursitis, likely recurrent MRSA infection. As discussed, will be treated with IV vancomycin pending further culture results. Await orthopedic evaluation regarding aspiration versus surgical drainage. Will follow. (2) MRSA (methicillin resistant Staphylococcus aureus) infection: History of Present Illness Reason for Consultation: Possible septic joint, patient known to you Attending Physician: Marge Lemus DO History of Present Illness 58-year-old male with a history of psoriasis, emphysema, prior episode of septic prepatellar bursitis of left knee with MRSA requiring incision and drainage now presents with pain, swelling, erythema of right knee, associated with chills and possibly fever. He was evaluated last week and found to have evidence of septic prepatellar bursitis, and was started on oral Bactrim, but has been on therapy for 3 days with worsening symptoms. Was evaluated in the office today, and referred for admission for IV antibiotics and possible surgical intervention. Pain currently 3-4 out of 10 in intensity right knee. Allergies Allergy/AdvReac Type Severity Reaction Status Date / Time oxycodone AdvReac Intermediate ITCHINESS Verified 05/27/19 10:47 Home Medications Home Medications Medication Instructions Recorded Confirmed Type fluocinonide 0.1 % topical cream 1 appln TOPICAL DAILY #1 gm 02/13/19 05/27/19 History albuterol sulfate 90 mcg/actuation 2 puff INHALATION Q6H PRN #18 gm 05/24/19 05/27/19 Rx aerosol inhaler Patient History Medical History Closed head injury with concussion (Inactive) Hiatal hernia History of colitis Knee effusion, left (Inactive) Psoriatic arthritis Seizure x1 in 2005 - [facility] in [place] - "i had a small clot in my brain that made me have a seizure" - cause of clot? reports he was on AC x 3 weeks - no residual effects - no recurrence of seizures - no neurologist Seizure Tobacco use disorder Work related injury (Inactive) Surgical History History of anesthesia reaction slow to wake History of ankle surgery left - harware present History of colonoscopy with polypectomy History of esophagogastroduodenoscopy (EGD) History of herniorrhaphy umbilical History of lumbar surgery History of repair of ACL bl History of shoulder surgery rt - hardware present History of tooth extraction Family History Father Family history of diabetes mellitus Diabetes Cardiac disorder Mother Family history of diabetes mellitus Diabetes Cardiac disorder Other Asthma Social History Preferred Language: Zambian Communication Ability: Effective 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 Beliefs That Will Affect Care: None Current Living Situation: Spouse Feels Safe at Home: Yes Smoking Status: Current every day smoker Tobacco Type: cigarettes ; Cigarettes Per Day: 10 ; Second Hand Exposure: Yes ; Hx Alcohol Use: Yes Alcohol type: beer Alcohol Intake Frequency Comment: states 1-2 beers a week, a 6 pack lasts a month Hx Substance Use: No Review of Systems Review of Systems: All systems reviewed & are unremarkable except as noted in HPI & below Physical Exam Constitutional: WD/WN, vitals as above comfortable; no acute distress Eyes: PERRL, conjunctivae normal, anicteric sclerae ENMT: external ear and nose normal, oropharynx normal Neck: trachea midline, no thyromegaly neck nontender Respiratory: normal respiratory effort, lungs clear to auscultation normal percussion; does not use accessory muscles Cardiovascular: Rate/Rhythm: regular rate and regular rhythm Heart Sounds: normal S1 and normal S2; no gallop, no murmur and no cardiac rub Vessels: normal peripheral pulses; no JVD Gastrointestinal (Abdomen): normal bowel sounds, soft, nontender, no hepatosplenomegaly Musculoskeletal: no cyanosis or clubbing, extremities motor strength 5/5 Spine: thoracic spine normal to inspection and lumbar spine normal to inspection; no cervical spinal tenderness Skin: no rashes, warm and dry normal turgor and + erythema (Erythema and induration with tenderness overlying superior right patellar region) Neurologic: patellar DTR's 2+ bilat, sensation intact no focal motor deficits Psychiatric: A+Ox3, euthymic affect Orientation: cooperative Lymphatic: no cervical or axillary lymphadenopathy no inguinal lymphadenop athy Results & Data Vital Signs (Past 12 Hours) Vital Signs Temp Pulse Resp BP Pulse Ox 05/27/19 15:44 36.7 C 83 17 110/70 95 05/27/19 13:32 36.3 C L 102 H 18 126/73 97 Laboratory Results Short CBC 05/27/19 Range/Units 14:10 WBC 8.50 (4.8-10.8) K/uL Hgb 14.1 (14.0-18.0) g/dL Hct 40.5 L (42-52) % Plt Count 336 (130-400) K/uL BMP 05/27/19 14:10 Sodium 140 Potassium 3.3 L Chloride 107 Carbon Dioxide 24 BUN 10 Creatinine 0.73 Glucose 104 H Calcium 9.3 Diagnostic Findings Spec: [id number] Collected: 05/24/19-UNK Received: 05/24/19-[address]: Mara Wisdom, PAMiaC Source: Knee,Right OV Order: Ordered: Surf Wnd Cul/Sm Procedure Result Verified Site Gram Stain Final 05/24/19-1458 Gram Stain Result No Epithelial Cells No WBCs Seen No Organisms Seen Surface Wound Culture Final 05/27/19-09 Organism 1 Staph aureus MRSA Quantity Moderate Sens Sensitivities to Follow Sensitivity results indicate a Methicillin-Resistant Staph aureus. Phoned to [facility] on 05/27/19 at 0902 by Dipak Byers. Results were verbalized back. MRSA RX M.I.C. --- --------- Clindamycin S <=0.5 Daptomycin S 1 Erythromycin S <=0.5 Oxacillin R >2 Rifampin S <=1 Tetracycline S <=4 Trimeth/Sulfa S <=0.5/9.5 Vancomycin S 2 S = SENSITIVE I = INTERMEDIATE R = RESISTANT Name: FESTUS OCONNELL : 1960 PAGE 1 Printed: 05/27/19 7770 PG Care Time/CCT Total # of Minutes Spent Total Time Spent with Patient: Total time spent is greater than 50% in coordination of care (as documented) at patient's floor/unit and/or counseling patient:
--- NOTE | 2019-05-27 18:35 | Orthopedic Consultation ---
Date of Consultation May 27, 2019 Assessment & Plan (1) Septic prepatellar bursitis of right knee: Not clear whether this is septic prepatellar bursitis for sure. May just have a localized abscess superior pole patella. At this point time does not appear to have a septic knee or not specifically have a septic prepatellar bursa. Will observe on IV antibiotics that were started. Options are aspirating the abscess area or just going ahead with an I&D of the abscess if does not respond to antibiotics. If it extends at all to the prepatellar bursa or knee joint then further surgical treatment would be indicated. Recommend moist heat and IV antibiotics for now. History of Present Illness Reason for Consultation: 58-year-old male who had a ingrown hair or pimple on the superior pole of his patella area became infected. Originally there was some drainage but no recent drainage. Patient was on some Bactrim and was admitted for IV antibiotics. Patient said that the area of redness has decreased in size since he has been on antibiotics but still has pain. He is concerned that he had a septic knee in his opposite knee in the past that required surgical treatment. Attending Physician: Marge Lemus, History of Present Illness See above dictation Allergies Allergy/AdvReac Type Severity Reaction Status Date / Time oxycodone AdvReac Intermediate ITCHINESS Verified 05/27/19 10:47 Home Medications Home Medications Medication Instructions Recorded Confirmed Type fluocinonide 0.1 % topical cream 1 appln TOPICAL DAILY #1 gm 02/13/19 05/27/19 History albuterol sulfate 90 mcg/actuation 2 puff INHALATION Q6H PRN #18 gm 05/24/19 05/27/19 Rx aerosol inhaler Patient History Medical History Closed head injury with concussion (Inactive) Hiatal hernia History of colitis Knee effusion, left (Inactive) Psoriatic arthritis Seizure x1 in 2005 - [facility] in [place] - "i had a small clot in my brain that made me have a seizure" - cause of clot? reports he was on AC x 3 weeks - no residual effects - no recurrence of seizures - no neurologist Seizure Tobacco use disorder Work related injury (Inactive) Surgical History History of anesthesia reaction slow to wake History of ankle surgery left - harware present History of colonoscopy with polypectomy History of esophagogastroduodenoscopy (EGD) History of herniorrhaphy umbilical History of lumbar surgery History of repair of ACL bl History of shoulder surgery rt - hardware present History of tooth extraction Family History Father Family history of diabetes mellitus Diabetes Cardiac disorder Mother Family history of diabetes mellitus Diabetes Cardiac disorder Other Asthma Social History Preferred Language: Frisian Communication Ability: Effective 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 Physical Exam Physical Exam: Right knee demonstrates a 2 and half centimeter diameter red hard area in the suprapatellar region. The prepatellar bursa itself does not have any fluid in it . The knee joint itself has no knee joint effusion. He does have painful range of motion of the knee however. The area of redness is indurated consistent with a superficial abscess or some type of a boil. There is no drainage from it. Results & Data Vital Signs (Past 12 Hours) Vital Signs White blood cell count 8.5 and currently afebrile Temp Pulse Resp BP Pulse Ox 05/27/19 15:44 36.7 C 83 17 110/70 95 05/27/19 13:32 36.3 C L 102 H 18 126/73 97
[2019-05-27] MEDS: VANCOMYCIN HCL 1,000 MG in SODIUM CHLORIDE 0.9% 250 ML IV SCH (23:55)
[2019-05-28] MEDS: ACETAMINOPHEN 325 MG TAB PO PRN (00:01)
[2019-05-28] MEDS: NSS + 20MEQ KCL 20 MEQ/1,000 ML BAG IV SCH ×2 (04:16→16:39)
[2019-05-28 05:44] LABS: Basophils # (auto) 0.06 K/uL (0-0.2); Basophils % (auto) 0.9 %; Eosinophils # (auto) 0.24 K/uL (0-0.5); Eosinophils % (auto) 3.4 %; Hematocrit (blood only) 39.8 % (42-52); Hemoglobin 13.6 g/dL (14.0-18.0); Immature Granulocytes # (auto) 0.01 K/uL (0.00-0.02); Immature Granulocytes % (auto) 0.1 %; Lymphocytes # (auto) 2.53 K/uL (1.2-3.4); Mean Corpuscular Hemoglobin 30.9 pg (25-34); Mean Corpuscular Hgb Conc 34.2 g/dL (32-36); Mean Corpuscular Volume 90.5 fL (80-100); Monocytes # (auto) 0.58 K/uL (0.11-0.59); Monocytes % (auto) 8.3 %; Neutrophils # (auto) 3.61 K/uL (1.4-6.5); Neutrophils % (auto) 51.3 %; Platelet Count 303 K/uL (130-400); RDW Standard Deviation 43.2 fL (36.4-46.3); White Blood Count 7.03 K/uL (4.8-10.8)
[2019-05-28 06:16] LABS: BUN Creatinine Ratio 18.5 (10-20); Calcium 8.8 mg/dl (8.5-10.1); Creatinine Clr Calc Pharmacy 117.4 ml/min; Est GFR (African American) 123.7; Est GFR (Non-African American) 106.8; Potassium 4.2 mmol/L (3.5-5.1)
[2019-05-28] MEDS: VANCOMYCIN HCL 1,000 MG in SODIUM CHLORIDE 0.9% 250 ML IV SCH ×3 (07:50→23:38)
--- NOTE | 2019-05-28 09:50 | Infectious Disease Progress Nt ---
Date of Service May 28, 2019 Assessment & Plan (1) Septic prepatellar bursitis of right knee: Patient with right knee infection, not clear whether it involves bursa or just soft tissue, but appears to be responding well to current IV antibiotics. Would continue IV therapy through today, then may be able to transition to oral antibiotics tomorrow if improving. Will likely recommend clindamycin given that failed to improve on Bactrim therapy. We will continue to follow. (2) MRSA (methicillin resistant Staphylococcus aureus) infection: Subjective Patient seen in follow-up for right knee infection. Appears significantly better than yesterday, less redness and swelling, less tenderness, minimal fluctuance. Seen by orthopedic surgery and no intervention planned as yet. Blood cultures are no growth to date. Review of Systems Review of Systems: All systems reviewed & are unremarkable except as noted in HPI & below Physical Exam Constitutional: WD/WN, vitals as above comfortable; no acute distress Eyes: PERRL, conjunctivae normal, anicteric sclerae ENMT: external ear and nose normal, oropharynx normal Neck: trachea midline, no thyromegaly neck nontender Respiratory: normal respiratory effort, lungs clear to auscultation normal percussion; does not use accessory muscles Cardiovascular: Rate/Rhythm: regular rate and regular rhythm Heart Sounds: normal S1 and normal S2; no gallop, no murmur and no cardiac rub Vessels: normal peripheral pulses; no JVD Gastrointestinal (Abdomen): normal bowel sounds, soft, nontender, no hepatosplenomegaly Musculoskeletal: no cyanosis or clubbing, extremities motor strength 5/5 Spine: thoracic spine normal to inspection and lumbar spine normal to inspection; no cervical spinal tenderness Skin: no rashes, warm and dry normal turgor and + erythema (Erythema and induration overlying superior right patellar region much improved from yesterday) Neurologic: patellar DTR's 2+ bilat, sensation intact no focal motor deficits Psychiatric: A+Ox3, euthymic affect Orientation: cooperative Lymphatic: no cervical or axillary lymphadenopathy no inguinal lymphadenopathy Results & Data Vital Signs (Past 12 Hours) Vital Signs Temp Pulse Resp BP Pulse Ox 05/28/19 07:57 36.4 C L 67 16 122/77 94 05/27/19 22:47 36.4 C L 74 16 127/80 95 Laboratory Results Short CBC 05/27/19 05/28/19 Range/Units 14:10 05:23 WBC 8.50 7.03 (4.8-10.8) K/uL Hgb 14.1 13.6 L (14.0-18.0) g/dL Hct 40.5 L 39.8 L (42-52) % Plt Count 336 303 (130-400) K/uL [facility] 05/27/19 05/28/19 14:10 05:23 Sodium 140 140 Potassium 3.3 L 4.2 D Chloride 107 110 H Carbon Dioxide 24 27 BUN 10 13 Creatinine 0.73 0.68 Glucose 104 H 92 Calcium 9.3 8.8 Diagnostic Findings Name: FESTUS OCONNELL Acct: [id number] Status: DEP CLI : 1960 [facility] Date: 05/24/19 Age: 58 Sex: M Dis Date: Loc: Lab [address] [place] [address] Spec: [id number] Collected: 05/24/19-UNK Received: 05/24/19-[address]: Mara Wisdom PA-C Source: Knee,Right OV Order: Ordered: Surf Wnd Cul/Sm Procedure Result Verified Site Gram Stain Final 05/24/19-1457 Gram Stain Result No Epithelial Cells No WBCs Seen No Organisms Seen Surface Wound Culture Final 05/27/19-902 Organism 1 Staph aureus MRSA Quantity Moderate Sens Sensitivities to Follow Sensitivity results indicate a Methicillin-Resistant Staph aureus. Phoned to [facility] on 05/27/19 at 0902 by Dipak Byers. Results were verbalized back. MRSA RX M.I.C. --- --------- Clindamycin S <=0.5 Daptomycin S 1 Erythromycin S <=0.5 Oxacillin R >2 Rifampin S <=1 Tetracycline S <=4 Trimeth/Sulfa S <=0.5/9.5 Vancomycin S 2 S = SENSITIVE I = INTERMEDIATE R = RESISTANT Name: FESTUS OCONNELL : 1960 PAGE 1 Printed: 05/28/19 3821 END OF REPORT PG Care Time/CCT Total # of Minutes Spent Total Time Spent with Patient: Total time spent is greater than 50% in coordination of care (as documented) at patient's floor/unit and/or counseling patient:
[2019-05-28] MEDS: MoRPHine SULFATE 2 MG/ML CARP IV PRN (10:26)
--- NOTE | 2019-05-28 12:58 | Orthopedic Progress Note ---
Date of Service May 28, 2019 Assessment & Plan (1) Septic prepatellar bursitis of right knee: This appears to be responding well to the Vancomycin, was also seen by Dr Betts earlier today and agrees to continue IV therapy through today, then may be able to transition to oral antibiotics tomorrow if improving. Will likely recommend clindamycin given that failed to improve on Bactrim therapy. will cont to observe. discussed with patient if worsened the possibility of I&D as well, however currently improving with the IVs (2) MRSA (methicillin resistant Staphylococcus aureus) infection: Subjective states less pin today, redness improving Review of Systems Constitutional: no fever and no chills Cardiovascular: no chest pain, no dyspnea and no orthopnea Physical Exam Physical Exam: Vital Signs Temp Pulse Resp BP BP Pulse Ox 05/28/19 07:57 36.4 C L 67 16 122/77 94 05/27/19 22:47 36.4 C L 74 16 127/80 95 05/27/19 15:44 36.7 C 83 17 110/70 95 05/27/19 13:32 36.3 C L 102 H 18 126/73 97 Intake and Output 05/27/19 05/28/19 05/28/19 22:59 06:59 14:59 Intake Total 1075 / 1998.667 924.667 / 1998.667 270 / 270 Balance 1075 / 1998.667 924.667 / 1998.667 270 / 270 Intake: IV 775 / 1699.667 924.667 / 1699.667 270 / 270 NORMAL SALINE w/20 MEQ KCL 20 240 / 894.667 654.667 / 894.667 meq In 1,000 m l @ 80 mls/hr IV .[id number] [facility] R x#:[id number] Vancomycin HCl 1,000 mg In Nss 270 / 270 270 / 270 250 ml @ 125 m ls/hr IV Q8H [facility] Rx#:[id number] Vancomycin HCl 1,750 mg In Nss 535 / 535 500 ml @ 200 m ls/hr IV ONE ONE Rx#:[id number] Oral 300 / 300 Other: # Unmeasured Voi ds 1 Weight 71 kg Patient Weight 05/29/19 06:59 Weight 71 kg Constitutional: WD/WN, vitals as above no acute distress Musculoskeletal: Right knee- there is a 2.5 cm erythematous area in the suprapatellar region. The prepatellar bursa itself does not have any fluid in it . no true knee effusion, there is mild pain with active ROM/SLR but states improved since yesterday. The area of redness is indurated consistent with a superficial abscess/no drainage from it. Results & Data Vital Signs (Past 12 Hours) Vital Signs Temp Pulse Resp BP Pulse Ox 05/28/19 07:57 36.4 C L 67 16 122/77 94
--- NOTE | 2019-05-28 14:39 | Hospitalist Progress Note ---
Date of Service May 28, 2019 Assessment & Plan (1) MRSA (methicillin resistant Staphylococcus aureus) infection: * Improved * RIGHT knee pain, decreased ROM, cellulitis with concerns for septic joint as pt with h/o LEFT septic knee and MRSA in 2009 which required I&D and residential IV ABx * Wound cx in office 05/24 positive for MRSA, was initiated on Bactrim (sensitivities with resistance to oxacillin) but failed to improve * Started on IV Vancomycin * Ortho and ID Consults * Afebrile, WBC continues to be wnl, no evidence of sepsis * Blood cx drawn on 05/24 -- prelim without growth * Per ID recommendations, may switch to oral clinda tomorrow if patient continues to improve, given failed outpatient tx with Bactrim already (2) Knee pain: * As above- improved (3) Hypokalemia: * 3.3 on admission * Given PO replacement with improvement to 4.2 today * Continue to monitor (4) GERD (gastroesophageal reflux disease): * No home medications -- evidence of hiatal hernia on imaging * Stable at this time * Continue to monitor (5) Psoriasis: * Hx of psoriatic arthritis * Rheum consult pending as outpt -- new referral sent at last PCP visit (6) Rossi's esophagus without dysplasia: * EGD on 08/02 with [facility] * Patient not on any home medications * would recommend PPI indefinitely for this (7) Colitis: * Hx colitis * Stable- No evidence of flare (8) Seizure: * Single episode in 2005 [facility] -- "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" -- was on anticoagulation x 3 weeks without residual effects * No recurrence of seizures or follow-up with Neurology locally (9) Tobacco use disorder: * Declines nicotine patch due to hx of headache with use in the past * Smoking cessation (10) DVT prophylaxis: * SCDs Dispo: possible discharge tomorrow on oral clinda Supervising Physician Co-Signing Physician Notes OSWALDO Supervision Note: I did not personally see or examine the patient today, but I verified all samayoa points of OSWALDO Giraldo's assessment and plan with the following exceptions/additions: None Subjective Patient evaluated this morning. He states he has had no more fever of chills like he did prior to admission. His pain is significantly decreased and states the redness has much improved. He also states he had only been able to get to about a third of the ROM he is able to currently. Discussed possibility for discharge tomorrow if he continues to improve and will be sent out on oral antibiotics. Patient agreeable. Review of Systems Constitutional: no fever and no chills Respiratory: no cough and no dyspnea Cardiovascular: no chest pain and no edema Gastrointestinal: no abdominal pain, no nausea and no vomiting Genitourinary: no dysuria and no hematuria Musculoskeletal: Right knee pain, much improved Integumentary: No new rashes/ lesions Physical Exam Constitutional: WD/WN, vitals as above Eyes: PERRL, conjunctivae normal, anicteric sclerae Neck: trachea midline, no thyromegaly Respiratory: normal respiratory effort, lungs clear to auscultation Cardiovascular: RRR, no murmur, no edema Gastrointestinal (Abdomen): normal bowel sounds, soft, nontender, no hepatosplenomegaly Musculoskeletal: Improved ROM R knee to 90 degrees flexion Skin: 2-3cm erythematous, fluctuant areas in suprapatellar region, well within the markings. Mildly tender to palpation. No evidence of effusion. ROM 90 degrees. pustule present Neurologic: PERRL, EOMI, accommodation nl, no face palsy, no dysarthria Psychiatric: A+Ox3, euthymic affect Results & Data Vital Signs (Past 12 Hours) Vital Signs Temp Pulse Resp BP Pulse Ox 05/28/19 07:57 36.4 C L 67 16 122/77 94 Laboratory Results 05/28/19 05/28/19 Range/Units 05:23 05:23 WBC 7.03 (4.8-10.8) K/uL RBC 4.40 L (4.7-6.1) M/uL Hgb 13.6 L (14.0-18.0) g/dL Hct 39.8 L (42-52) % MCV 90.5 (80-100) fL MCH 30.9 (25-34) pg MCHC 34.2 (32-36) g/dL RDW Std Deviation 43.2 (36.4-46.3) fL RDW Coeff of Nita 13.0 (11.5-14.5) % Plt Count 303 (130-400) K/uL MPV 10.0 (7.4-10.4) fL Immature Gran % (Auto) 0.1 % Neut % (Auto) 51.3 % Lymph % (Auto) 36.0 % Kidder % (Auto) 8.3 % Eos % (Auto) 3.4 % Baso % (Auto) 0.9 % Immature Gran # (Auto) 0.01 (0.00-0.02) K/uL Neut # (Auto) 3.61 (1.4-6.5) K/uL Lymph # (Auto) 2.53 (1.2-3.4) K/uL Kidder # (Auto) 0.58 (0.11-0.59) K/uL Eos # (Auto) 0.24 (0-0.5) K/uL Baso # (Auto) 0.06 (0-0.2) K/uL Sodium 140 (136-145) mmol/L Potassium 4.2 D (3.5-5.1) mmol/L Chloride 110 H (98-107) mmol/L Carbon Dioxide 27 (21-32) mmol/L Anion Gap 3.0 (3-11) BUN 13 (7-18) mg/dl Creatinine 0.68 (0.6-1.4) mg/dl Est Cr Clr Drug Dosing 117.4 ml/min Est GFR ( Amer) 123.7 Est GFR (Non-Af Amer) 106.8 BUN/Creatinine Ratio 18.5 (10-20) Glucose 92 (70-99) mg/dl Calcium 8.8 (8.5-10.1) mg/dl PG Care Time/CCT Total # of Minutes Spent Total Time Spent with Patient: Total time spent is greater than 50% in coord ination of care (as documented) at patient's floor/unit and/or counseling patient:
[2019-05-28] MEDS ORDERED: VANCOMYCIN TROUGH ONE (15:30)
[2019-05-28] MEDS ORDERED: CALCIUM CARBONATE 500 MG CHEWABLE TAB PO STA (21:59)
[2019-05-29] MEDS: NSS + 20MEQ KCL 20 MEQ/1,000 ML BAG IV SCH (05:16)
[2019-05-29] MEDS: ACETAMINOPHEN 325 MG TAB PO PRN (05:19)
[2019-05-29] MEDS ORDERED: VANCOMYCIN TROUGH ONE ×2 (07:30)
[2019-05-29 08:14] LABS: BUN Creatinine Ratio 14.4 (10-20); Calcium 9.4 mg/dl (8.5-10.1); Creatinine Clr Calc Pharmacy 122.8 ml/min; Est GFR (African American) 126.1; Est GFR (Non-African American) 108.8; Potassium 4.4 mmol/L (3.5-5.1)
[2019-05-29] MEDS: VANCOMYCIN HCL 1,000 MG in SODIUM CHLORIDE 0.9% 250 ML IV SCH (08:37)
--- NOTE | 2019-05-29 09:24 | Infectious Disease Progress Nt ---
Date of Service May 29, 2019 Assessment & Plan (1) Septic prepatellar bursitis of right knee: Patient with right knee infection, not clear whether it involves bursa or just soft tissue, but appears to have responded well to current IV antibiotics. Feel that patient can be transitioned to oral clindamycin 300 mg 3 times daily for 2 weeks. Would like to see in follow-up in 7 to 10 days in the office to ensure resolution. (2) MRSA (methicillin resistant Staphylococcus aureus) infection: Subjective Patient seen in follow-up for right knee infection. Has continued to show improvement on IV vancomycin. Knee less erythematous and indurated, better range of motion. Remains afebrile. Otherwise feeling well. Blood cultures remain negative. Review of Systems Review of Systems: All systems reviewed & are unremarkable except as noted in HPI & below Physical Exam Constitutional: WD/WN, vitals as above comfortable; no acute distress Eyes: PERRL, conjunctivae normal, anicteric sclerae ENMT: external ear and nose normal, oropharynx normal Neck: trachea midline, no thyromegaly neck nontender Respiratory: normal respiratory effort, lungs clear to auscultation normal percussion; does not use accessory muscles Cardiovascular: Rate/Rhythm: regular rate and regular rhythm Heart Sounds: normal S1 and normal S2; no gallop, no murmur and no cardiac rub Vessels: normal peripheral pulses; no JVD Gastrointestinal (Abdomen): normal bowel sounds, soft, nontender, no hepatosplenomegaly Musculoskeletal: no cyanosis or clubbing, extremities motor strength 5/5 Spine: thoracic spine normal to inspection and lumbar spine normal to inspection; no cervical spinal tenderness Skin: no rashes, warm and dry normal turgor and + erythema (Erythema and induration overlying superior right patellar region much improved from yesterday) Neurologic: patellar DTR's 2+ bilat, sensation intact no focal motor deficits Psychiatric: A+Ox3, euthymic affect Orientation: cooperative Lymphatic: no cervical or axillary lymphadenopathy no inguinal lymphadenopathy Results & Data Vital Signs (Past 12 Hours) Vital Signs Temp Pulse Pulse Resp BP Pulse Ox 05/29/19 07:40 36.5 C 74 17 116/78 97 05/28/19 23:00 36.9 C 85 18 114/56 L 94 Laboratory Results [facility] 05/29/19 07:25 Sodium 141 Potassium 4.4 Chloride 111 H Carbon Dioxide 24 BUN 9 Creatinine 0.65 Glucose 95 Calcium 9.4 Diagnostic Findings Microbiology 05/27/19 14:09 Blood Aerobic Blood Culture - Preliminary No growth in Aerobic bottle after 24 hours. 05/27/19 14:09 Blood Anaerobic Blood Culture - Preliminary No growth in Anaerobic bottle after 24 hours. 05/27/19 14:16 Blood Aerobic Blood Culture - Preliminary No growth in Aerobic bottle after 24 hours. 05/27/19 14:16 Blood Anaerobic Blood Culture - Preliminary No growth in Anaerobic bottle after 24 hours. PG Care Time/CCT Total # of Minutes Spent Total Time Spent with Patient: Total time spent is greater than 50% in coordination of care (as documented) at patient's floor/unit and/or counseling patient:
--- NOTE | 2019-05-29 10:04 | Discharge Summary ---
Date of Service May 29, 2019 Admission HPI Per Admitting Provider 58 y/o M who was a direct admit from PCP's office where he was being seen by Mara Wisdom. Pt was seen in the office by Artis on 05/24 for R knee pain, redness, and swelling with developing sores over the last 2 weeks. No fever or chills, n/v. Pt has hx of a L septic knee in 2009 which required surgical intervention with Dr. Houser and prolonged IV abx. He was concerned because the sx he has been having were similar to that episode. Labs were done and wound cx was sent on 05/24. Pt was started on bactrim at that time. Pt noted that he placed gore on his knee on 05/24 to monitor progress. Over the weekend, there was a slight regression of redness noted from lines made on 05/24, however pt developed a new sore and had worsening pain. He is not able to bend his R knee at all due to pain now. Swelling was not worse, but it did not improve. He started to have chills, but no fever. Pt also noted nausea w/o emesis, but this has happened in the past with bactrim. He has baseline diarrhea related to "coli tis" and this was unchanged. Pt returned for f/u with Artis today. Dr. Betts was in the office and advised pt to be admitted for IV abx and ortho c/s given his hx. Pt denies SOB, chest pain, abd pain. Admission Exam Per Admitting Provider Constitutional: WD/WN, vitals as above Eyes: normal visual gil by confrontation and + anicteric sclerae Neck: normal visual inspection and trachea midline Respiratory: normal respiratory effort, lungs clear to auscultation Cardiovascular: Rate/Rhythm: regular rate and regular rhythm Gastrointestinal (Abdomen): Inspection/Auscultation: abdomen not distended Percussion/Palpation: abdomen soft; abdomen nontender Musculoskeletal: Head/Neck/Chest: normocephalic and head atraumatic R patellar edema, peripheral pulses intact Skin: redness located on and around patella with a dense central region that has a pustule with pus noted Pustule is closed, no purulence or bleeding Ink gore were made by pt on 05/24 and have slight regression Marker was made by myself on 05/27 TTP, even to marker Neurologic: awake; not confused Speech / Cognition: normal speech Psychiatric: A+Ox3, euthymic affect Principal Diagnosis MRSA septic prepatellar bursitis RIGHT knee Discharge Exam Constitutional WD/WN, vitals as above Eyes PERRL, conjunctivae normal, anicteric sclerae Neck trachea midline, no thyromegaly Respiratory normal respiratory effort, lungs clear to auscultation Cardiovascular RRR, no murmur, no edema Gastrointestinal (Abdomen) normal bowel sounds, soft, nontender, no hepatosplenomegaly Musculoskeletal Improved ROM R knee to 90 degrees Skin 1-2 cm erythematous, fluctuant areas in suprapatellar region, regressed further within the markings. No evidence of effusion. Scab present in place of pustule yesterday. No evidence of streaking Neurologic PERRL, EOMI, accommodation nl, no face palsy, no dysarthria Psychiatric A+Ox3, euthymic affect Discharge Data Allergies Allergy/AdvReac Type Severity Reaction Status Date / Time oxycodone AdvReac Intermediate ITCHINESS Verified 05/27/19 10:47 Consultations 05/27/19 13:50 Consult Infectious Diseases Routine Consult Orthopedic Surgery Routine 05/27/19 13:52 Consult Case Management - Discharge Planning Routine Hospital Course (1) MRSA (methicillin resistant Staphylococcus aureus) infection: * Admitted with RIGHT knee pain, decreased ROM, cellulitis with concerns for septic joint as pt with h/o LEFT septic knee and MRSA in 2009 which required I&D and intermediate accountant IV ABx * Wound cx in office 05/24 positive for MRSA and was initiated on Bactrim but failed to improve. Admitted as direct admit for IV Vancomycin. Ortho and ID consults placed for possible I&D. Orthopedic Surgery did NOT feel this was a septic arthritis, but rather a prepatellar bursitis. Given clinical response/improvement to IV abx, Ortho deferred I&D at this time. Patient remained afebrile, WBC wnl, without evidence of sepsis. * Blood cx without growth on preliminary. * Per ID recommendations, switched to oral clindamycin upon discharge and follow up with ID to monitor response. (2) Knee pain: * As above- improved (3) Hypokalemia: * 3.3 on admission- give PO replacement. * Continued to be wnl prior to discharge (4) GERD (gastroesophageal reflux disease): * No home medications -- evidence of hiatal hernia on imaging -- history of Rossi's esophagus but was not on PPI. Initiated on protonix at time of discharge * continue EGD routinely for surveillance (5) Psoriasis: * Hx of psoriatic arthritis * Rheum consult pending as outpt -- new referral sent at last PCP visit (6) Rossi's esophagus without dysplasia: * EGD on 08/02 with [facility]-- patient not on any medications as outpati ent. 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" -- was on anticoagulation x 3 weeks without residual effects * No recurrence of seizures or follow-up with Neurology locally (9) Tobacco use disorder: * Declines nicotine patch due to hx of headache with use in the past * Smoking cessation counseling given (10) DVT prophylaxis: * SCDs while inpatient Dispo-stable for dc to home Total Time Total Time Spent Total Time Spent (In Minutes): 35 Discharge Plan Discharge Items Patient Disposition: Home - Self-Care Reason For Visit: MRSA RIGHT KNEE Discharge Diagnosis: Staph infection (MRSA) of soft tissue, right knee Condition on Discharge: Good Goals: You have been hospitalized for an acute medical problem. During your stay at [facility], we have made an effort to correct the problem that brought you to the hospital while keeping you as comfortable as possible. Medications were used to bring your condition under control and your discharge instructions will include directions for any medications you should take after leaving the hospital. Please make sure you see your Primary Care Provider as part of your follow up plan. Activity: Resume your previous activity Non-emergency contact: Primary Care Provider Call non-emergency contact if: you have any medication questions, your pain is worsening and you have a fever Follow-up/Referrals: Mara Wisdom PA-C [Physician Band Aid Machine Operator] - 06/04/19 9:50 am (A follow up appt. has been made for you with Mara Wisdom PA-C on June 04 at 9:50am.) Amol Betts MD [Physician] - 06/10/19 10:15 am (A follow up appt. has been made for you with Dr. Betts on Jun.10 at 10:15am.) Blayne Machado MD [Primary Care Provider] - Diet: Regular Addtl Attending Provider Instructions: You are being sent with a prescription for clindamycin as an antibiotic for your infection. Please take as prescribed, 300 mg 3 times daily for 2 weeks. You may want to consider probiotic or yogurt daily, as discussed, due to antibiotic induced diarrhea. You should follow up with Dr. Betts in the next 7-10 days. --As we talked about, given your line of work, you may want to purchase Hibiclens over the counter and clean the inside topically with this cleanse. Please note, as discussed, this antibiotic does carry a higher potential for an infection called C.diff. Please watch for worsening loose stools, foul smelling or bloody stool as these may suggest infection. You are also being sent with a prescription for Protonix for your reflux. Take this once daily for your Rossi's esophagus and reflux symptoms. Please keep your regularly scheduled GI visits for surveillance for esophageal cancer. -It is also recommended that you abstain from tobacco products, cigarettes and chewing tobacco, as discussed. You should follow up with your primary care provider in the next 3-5 days. For worsening pain, fever or spreading of infection outside of lines, please report to the emergency room. Pending Studies at Discharge: No Stand-Alone Forms: [facility], Work/School Release (Inpt), Smoking Cessation Medications and DC Order Prescriptions: New clindamycin HCl 150 mg Capsule 300 mg PO TID 14 Days Qty: 84 RF: 0 pantoprazole [Protonix] 40 mg tablet,delayed release (DR/EC) 40 mg PO DAILY Qty: 30 RF: 0 Continued albuterol sulfate [Ventolin HFA] 90 mcg/actuation HFA aerosol inhaler 2 puff INHALATION Q6H PRN (Reason: shortness of breath or wheezing) Qty: 18 RF: 0 fluocinonide 0.1 % cream 1 appln topical DAILY Qty: 1 RF: 0 Discharge Orders: Discharge Order (Routine); Ordered 05/29/19 Ordered By: Lynn Charles/Other Patient Handouts: Infec MRSA Admission Data Admit Date/Time: 05/27/19 13:13 Attending Provider: Lynn Ocampo Admit Provider: Marge Lemus Primary Care Provider: Blayne Machado Other Providers: Amol Betts ; Quinton Houser Other Interventions: Discharge Summary Assessment (RN) Last Done: 05/29/19 11:42 DC Date/Time DO NOT enter until pt leaves facility: 05/29/19 11:58 Supervising Physician Co-Signing Physician Notes PA Supervision Note: I personally saw and examined the patient. I verified all samayoa points and agree with OSWALDO Giraldo with the following exceptions and/or additions: Pt feeling much better. Redness and pain in right knee improved. Remains afebrile. VSS AAO x 3 , NAD RRR no mgr CTAB no wcr Abd soft NT ND Ext Right knee with very small area of mild erythema over right prepatellar region with small scabbed over 2mm pustule centrally, minimal tenderness. ROM of knee 0-120 58 yo male here with right prepatellar septic bursitis with MRSA, faile doutpt Bactrim -now much improved on IV Vanco and can transition back to po Clinda on dc, close f/u as outpt with ID, PCP -counseled on smoking cessation
[2019-05-29] MEDS ORDERED: ALUMINUM/MAGNESIUM SUSP 30 ML UDC PO STA (10:48)
[2019-05-29] MEDS ORDERED: CLINDAMYCIN HCL 150 MG CAP PO SCH (11:00)
== END 2019-05-29 11:58 | disposition home or self-care (01) | DRG 550 ==
LOC: 3N 13:13 → SUATTDRO 13:13

== ENCOUNTER 2023-02-13 11:33 | Observation (INO) ==
[2023-02-13] MEDS ORDERED: SODIUM CHLORIDE 0.9% 1000ML 1,000 ML IV STA (11:55)
[2023-02-13] MEDS ORDERED: MoRPHine SULFATE 4 MG/ML 1 ML CARP\\VIAL IV STA (11:55)
[2023-02-13] MEDS ORDERED: ONDANSETRON INJ 2 MG/ML 2 ML VIAL IV STA (11:55)
[2023-02-13 12:10] LABS: Basophils % (auto) 0.6 %; Eosinophils # (auto) 0.15 K/uL (0-0.50); Eosinophils % (auto) 0.9 %; Hemoglobin 14.2 g/dl (14.0-18.0); Immature Granulocytes # (auto) 0.07 K/uL (0.01-0.20); Immature Granulocytes % (auto) 0.4 %; Lymphocytes # (auto) 2.87 K/uL (1.2-3.4); Lymphocytes % (auto) 16.7 %; Mean Corpuscular Hemoglobin 31.6 pg (25.0-34.0); Mean Corpuscular Hgb Conc 34.6 g/dL (32.0-36.0); Mean Corpuscular Volume 91.1 fL (80.0-100.0); Mean Platelet Volume 10.2 fL (9.4-12.4); Monocytes # (auto) 0.94 K/uL (0.11-0.59); Monocytes % (auto) 5.5 %; Neutrophils % (auto) 75.9 %; Platelet Count 364 K/uL (130-400); RDW Coefficient of Variation 12.3 % (11.5-14.5); White Blood Count 17.23 K/ul (4.8-10.8)
[2023-02-13 12:25] LABS: Albumin Globulin Ratio 1.5 (0.9-2); Albumin Level 4.8 gm/dl (3.4-5.0); BUN Creatinine Ratio 25.7 (10-20); Bilirubin,Total 0.8 mg/dl (0.2-1.0); Calcium 9.9 mg/dl (8.6-10.3); Creatinine Clr Calc Pharmacy 105.2 ml/min; Est GFR (African American) 118.9 ml/min; Est GFR (Non-African American) 102.6 ml/min; Globulin 3.2 gm/dl (2.5-4.0); Potassium 4.2 mmol/L (3.5-5.1)
--- NOTE | 2023-02-13 12:42 | CT Scan Report ---
CT abd pelvis wo con CLINICAL HISTORY: RLQ/R flank pain TECHNIQUE: Helical axial images of the abdomen and pelvis were obtained. Automated dose lowering tech niques and/or adjustment according to patient size were utilized for this exam. This exam was perfor med without intravenous contrast. CT DOSE: 717.24 mGy.cm COMPARISON: Comparison is made to CT abdomen pelvis 10/14/2020 FINDINGS: Lower chest: Bibasilar atelectasis versus scarring is seen. Liver: Unremarkable. No focal lesions are seen. Gallbladder and biliary tree: No calcified gallstones. Normal caliber wall. No intra- or extrahepatic biliary ductal dilation. Pancreas: Unremarkable, no focal lesions. Spleen: Unremarkable. Adrenals: Unremarkable. Kidneys and ureters: Unremarkable. Bladder: Unremarkable. Reproductive organs: Unremarkable. Bowel: Thickening of the appendix is seen with an appendicolith, the appendix measures up to 13 mm in diameter. A duodenal diverticulum is seen. Lymph nodes Retroperitoneal: Unremarkable. Pelvic: Unremarkable. Mesenteric: Unremarkable. Peritoneum: Mild fat stranding is seen in the right lower quadrant about the appendix. No evidence of perforation or abscess. Vessels: Unremarkable. Abdominal wall: Unremarkable. Bones: Degenerative changes in the visualized spine. IMPRESSION: Findings are compatible with acute appendicitis without evidence of perforation or abscess formation. ACT 112: Negative or not required by law. Electronically signed by: Brett Luna M.D. 02/13/2023 12:41 PM
[2023-02-13] MEDS ORDERED: HYDROmorphone INJ 0.5 MG/0.5 ML SYR IV STA (12:58)
--- NOTE | 2023-02-13 12:58 | Emergency Department Note ---
ED Provider Note History of Present Illness Chief Complaint: Abdominal Pain Stated Complaint: ABDOMINAL PAIN,VOMITING, Time Seen by Provider: 02/13/23 11:49 62-year-old male who presents to the emergency department with complaint of severe right lower quadrant abdominal pain. The patient reports that he was awakened around 3 AM this morning with the discomfort. He was sleeping on his stomach at the time, and thought that he had abdominal cramping. He went to the bathroom and did not have any relief. He then woke up a few hours later, got ready for work and when he got to work, had to call his because of progressively worsening pain. The patient reports that even bending over and walking worsens his discomfort. The patient denies any prior history of kidney stones. He has had a prior history of umbilical hernia repair. He rates his discomfort a 10 out of 10. Home Medications Medication Instructions Recorded Confirmed Type albuterol sulfate 90 mcg/actuation See Rx Instructions .Route 12/20/22 02/13/23 Rx aerosol inhaler .COMPLEX #9 grams acetaminophen 500 mg tablet 500 mg PO Q4H PRN pain 02/13/23 02/13/23 History multivitamin 1 tab PO DAILY 02/13/23 02/13/23 History triamcinolone acetonide 0.5 % 1 applic topical BID PRN Other 02/13/23 02/13/23 History topical cream Allergies Allergy/AdvReac Type Severity Reaction Status Date / Time oxycodone AdvReac Intermediate ITCHINESS Verified 06/07/22 07:59 Past Med/Surg History Medical History Abdominal discomfort Rossi's esophagus COPD (chronic obstructive pulmonary disease) Dysphagia GERD (gastroesophageal reflux disease) Hiatal hernia History of colitis Psoriatic arthritis Seizure x1 in 2006 - [facility] in [place] - "i had a small clot in my brain that made me have a seizure" - cause of clot? reports he was on AC x 3 weeks - no residual effects - no recurrence of seizures - no neurologist Septic prepatellar bursitis of left knee hx Surgical History History of ankle surgery left - harware present History of colonoscopy with polypectomy (~2017) Diverticular disease/polyps History of esophagogastroduodenoscopy (EGD) (~2019) History of herniorrhaphy umbilical History of left knee surgery for septic prepatellar bursitis left knee. History of lumbar surgery History of repair of ACL BL History of shoulder surgery Rt - hardware present History of tooth extraction Slow to wake up after anesthesia Family History Father Family history of diabetes mellitus Diabetes Cardiac disorder Mother Family history of diabetes mellitus Diabetes Cardiac disorder Other Asthma Social History Smoking Status: Current some day smoker Cigarettes Per Day: 4; Second Hand Exposure: Yes; Do You Dip or Chew Tobacco: Yes; Hx Alcohol Use: No Hx Substance Use: No Preferred Language: Barbadian Communication Ability: Effective Yarn Dumper Required: No Beliefs That Will Affect Care: None Current Living Situation: Spouse current occupational status: employed Feels Safe at Home: Yes Assistive Devices: Denture - Upper and Glasses Physical Exam Vital Signs Vital Signs - 24 hr 02/13/23 11:36 02/13/23 11:53 02/13/23 12:42 Temperature 36.9 C Temperature Source Temporal Artery Scan Pulse Rate 102 H 85 Pulse Rate [Apical] 92 H Pulse Rate [Right Finger] Pulse Rate from SpO2 Sensor Pulse Rhythm [Apical] Pulse Rhythm [Right Finger] Pulse Strength [Right Finger] Respiratory Rate 18 21 Respiratory Effort / Characteristics Respiratory Depth Respiratory Pattern Blood Pressure 124/73 Blood Pressure [Left Arm] Blood Pressure Mean 90 Blood Pressure Mean [Left Arm] Blood Pressure Position [Left Arm] Pulse Oximetry 98 96 Oxygen Delivery Method Room Air Room Air Oxygen Flow Rate Sepsis Recent Fever Within 48 Hours No Sepsis New/Unexplained Change in Mental Status No Sepsis Action Taken by Nursing No Action Required 02/13/23 12:30 02/13/23 12:30 02/13/23 13:00 Temperature Temperature Source Pulse Rate 80 83 Pulse Rate [Apical] Pulse Rate [Right Finger] Pulse Rate from SpO2 Sensor 81 83 Pulse Rhythm [Apical] Pulse Rhythm [Right Finger] Pulse Strength [Right Finger] Respiratory Rate 27 H 19 Respiratory Effort / Characteristics Respiratory Depth Respiratory Pattern Blood Pressure 121/82 Blood Pressure [Left Arm] Blood Pressure Mean 88 Blood Pressure Mean [Left Arm] Blood Pressure Position [Left Arm] Pulse Oximetry 96 94 Oxygen Delivery Method Oxygen Flow Rate Sepsis Recent Fever Within 48 Hours Sepsis New/Unexplained Change in Mental Status Sepsis Action Taken by Nursing 02/13/23 13:01 02/13/23 13:01 02/13/23 13:57 Temperature Temperature Source Pulse Rate 81 78 Pulse Rate [Apical] Pulse Rate [Right Finger] Pulse Rate from SpO2 Sensor 82 Pulse Rhythm [Apical] Pulse Rhythm [Right Finger] Pulse Strength [Right Finger] Respiratory Rate 25 H 19 Respiratory Effort / Characteristics Respiratory Depth Respiratory Pattern Blood Pressure 141/74 H 131/82 Blood Pressure [Left Arm] Blood Pressure Mean 99 Blood Pressure Mean [Left Arm] Blood Pressure Position [Left Arm] Pulse Oximetry 95 98 Oxygen Delivery Method Room Air Oxygen Flow Rate Sepsis Recent Fever Within 48 Hours Sepsis New/Unexplained Change in Mental Status Sepsis Action Taken by Nursing 02/13/23 14:05 02/13/23 13:30 02/13/23 13:31 Temperature 36.6 C Temperature Source Oral Pulse Rate 89 Pulse Rate [Apical] Pulse Rate [Right Finger] 78 Pulse Rate from SpO2 Sensor Pulse Rhythm [Apical] Pulse Rhythm [Right Finger] Regular Pulse Strength [Right Finger] Normal Respiratory Rate 18 18 Respiratory Effort / Characteristics Non-Labored Spontaneous Respiratory Depth Normal Respiratory Pattern Regular Blood Pressure 131/82 Blood Pressure [Left Arm] 122/77 Blood Pressure Mean 97 Blood Pressure Mean [Left Arm] 92 Blood Pressure Position [Left Arm] Lying Pulse Oximetry 99 Oxygen Delivery Method Room Air Oxygen Flow Rate Sepsis Recent Fever Within 48 Hours Sepsis New/Unexplained Change in Mental Status Sepsis Action Taken by Nursing 02/13/23 13:31 02/13/23 15:45 02/13/23 15:55 Temperature 36.3 C L Temperature Source Temporal Artery Scan Pulse Rate 91 H Pulse Rate [Apical] 76 77 Pulse Rate [Right Finger] Pulse Rate from SpO2 Sensor Pulse Rhythm [Apical] Regular Regular Pulse Rhythm [Right Finger] Pulse Strength [Right Finger] Respiratory Rate 26 H 17 16 Respiratory Effort / Characteristics Non-Labored Spontaneous Non-Labored Spontaneous Respiratory Depth Normal Normal Respiratory Pattern Regular Regular Blood Pressure Blood Pressure [Left Arm] 110/69 106/71 Blood Pressure Mean Blood Pressure Mean [Left Arm] 82 82 Blood Pressure Position [Left Arm] Lying Lying Pulse Oximetry 98 100 Oxygen Delivery Method Oxymask Oxymask Oxygen Flow Rate 10 10 Sepsis Recent Fever Within 48 Hours Sepsis New/Unexplained Change in Mental Status Sepsis Action Taken by Nursing CONSTITUTIONAL: Healthy and well nourished. Patient appears in severe discomfort. HEENT: No scleral icterus or conjunctival injection/pallor. RESPIRATORY: Clear to auscultation bilaterally with no wheezing, crackles, rhonchi or stridor. CARDIOVASCULAR: Regular rate and rhythm with no murmurs, rubs or gallops. GASTROINTESTINAL: Bowel sounds present in all quadrants. Patient has a dramatically positive McBurney's point tenderness with rebound and guarding. Negative CVA tenderness. MUSCULOSKELETAL: Full range of motion of all joints without discomfort. INTEGUMENTARY: No rash or other significant dermatologic conditions noted. HEMATOLOGIC: No ecchymosis or petechiae. PSYCHIATRIC: Flat affect. NEUROLOGIC: No focal neurologic deficits noted. Course Course Patient history and physical exam were performed. Nurses notes were reviewed. Vital signs were reviewed and were normal. IV access was established, and labs were drawn. The patient was hydrated with a liter of normal saline, and administered IV morphine and Zofran for pain. Review of labs shows a notable leukocytosis with neutrophil shift without bandemia. CMP shows mild hyponatremia, otherwise remaining electrolytes are grossly normal. Patient was unable to provide a urine sample for urinalysis. Noncontrast CT of the abdomen and pelvis shows evidence for an acute uncomplicated appendicitis. Findings were discussed with the patient, as well as Dr. Chakraborty, general surgeon on-call, who came to the emergency department for further evaluation. Please see Dr. Chakraborty's dictation for further surgical management and final disposition. Administered Medications Fentanyl Citrate (Fentanyl Citrate Pf 100 Mcg/2 Ml Vial) 25 mcg IV Q5M PRN PRN Reason: PACU Use Only-Pain Stop: 02/13/23 22:45 Last Admin: 02/13/23 16:06 Dose: 25 mcg Documented By: Admin: 02/13/23 16:01 Dose: 25 mcg Documented By: PIERRE Discontinued Medications Bupivacaine HCl/Epinephrine Bitart (Bupivacaine/Epinephrine 0.5% Mpf 1:200,000 30 Ml Vial) Confirm Administered Dose 30 ml .ROUTE .STK-MED ONE Stop: 02/13/23 14:43 Last Admin: 02/13/23 15:12 Dose: 30 ml Documented By: EULALIA Hydromorphone HCl (Hydromorphone Inj 0.5 Mg/0.5 Ml Syr) 0.5 mg IV NOW STA Stop: 02/13/23 12:59 Last Admin: 02/13/23 13:15 Dose: 0.5 mg Documented By: JESICA Sodium Chloride (Nss 1000ml) 1,000 mls @ 999 mls/hr IV .Q1H1M STA Stop: 02/13/23 12:55 Last Infusion: 02/13/23 13:10 Dose: 0 mls/hr Documented By: Admin: 02/13/23 12:09 Dose: 999 mls/hr Documented By: CHANDRIKA Piperacillin Sod/Tazobactam Sod (Zosyn) 4.5 gm in 120 mls @ 240 mls/hr IV NOW STA Stop: 02/13/23 13:59 Last Infusion: 02/13/23 14:19 Dose: 0 mls/hr Documented By: Admin: 02/13/23 13:49 Dose: 240 mls/hr Documented By: CHANDRIKA Morphine Sulfate (Morphine Sulfate 4 Mg/Ml 1 Ml Carp\\Vial) 6 mg IV NOW STA Stop: 02/13/23 11:56 Last Admin: 02/13/23 12:13 Dose: 6 mg Documented By: CHANDRIKA Ondansetron HCl (Ondansetron Inj 2 Mg/Ml 2 Ml Vial) 4 mg IV NOW STA Stop: 02/13/23 11:56 Last Admin: 02/13/23 12:09 Dose: 4 mg Documented By: CHANDRIKA Medical Decision Making Medical Records Attestation: I reviewed the patient's medical records. Home Medications was personally reviewed by me Laboratory Data Attestation: I reviewed the patient's lab results. 02/13/23 11:50 02/13/23 11:50 Lab Results 02/13/23 02/13/23 02/13/23 Range/Units 11:50 11:50 13:52 WBC 17.23 H (4.8-10.8) K/ul RBC 4.50 L (4.70-6.10) M/uL Hgb 14.2 (14.0-18.0) g/dl Hct 41.0 L (42.0-52.0) % MCV 91.1 (80.0-100.0) fL MCH 31.6 (25.0-34.0) pg MCHC 34.6 (32.0-36.0) g/dL RDW Std Deviation 41.0 (36.4-46.3) fL RDW Coeff of Nita 12.3 (11.5-14.5) % Plt Count 364 (130-400) K/uL MPV 10.2 (9.4-12.4) fL Immature Gran % (Auto) 0.4 % Neut % (Auto) 75.9 % Lymph % (Auto) 16.7 % [place] % (Auto) 5.5 % Eos % (Auto) 0.9 % Baso % (Auto) 0.6 % Neut # (Auto) 13.10 H (1.40-6.50) K/uL Lymph # (Auto) 2.87 (1.2-3.4) K/uL [place] # (Auto) 0.94 H (0.11-0.59) K/uL Eos # (Auto) 0.15 (0-0.50) K/uL Baso # (Auto) 0.10 (0-0.2) K/uL Immature Gran # (Auto) 0.07 (0.01-0.20) K/uL Sodium 135 L (136-145) mmol/L Potassium 4.2 (3.5-5.1) mmol/L Chloride 106 (98-107) mmol/L Carbon Dioxide 22 (21-32) mmol/L Anion Gap 7 (3-11) BUN 18 (6-23) mg/dl Creatinine 0.70 (0.6-1.4) mg/dl Est Cr Clr Drug Dosing 105.2 ml/min Est GFR ( Amer) 118.9 ml/min Est GFR (Non-Af Amer) 102.6 ml/min BUN/Creatinine Ratio 25.7 H (10-20) Glucose 101 H (70-99(Fasting)) mg/dl Calcium 9.9 (8.6-10.3) mg/dl Total Bilirubin 0.8 (0.2-1.0) mg/dl AST 19 (13-39) U/L ALT 20 (7-52) U/L Alkaline Phosphatase 53 (34-104) U/L Total Protein 8.0 (6.0-8.3) gm/dl Albumin 4.8 (3.4-5.0) gm/dl Globulin 3.2 (2.5-4.0) gm/dl Albumin/Globulin Ratio 1.5 (0.9-2) Lipase 28 (11-82) U/L Urine Color Dark Yellow Urine Appearance Clear (Clear) Urine pH 5.0 (4.5-7.5) Ur Specific [place] 1.026 (1.000-1.030) Urine Protein Negative (Negative) Urine Glucose (UA) Negative (Negative) Urine Ketones Negative (Negative) Urine Blood Negative (Negative) Urine Nitrite Negative (Negative) Urine Bilirubin Negative (Negative) Urine Urobilinogen Negative (Negative) Ur Leukocyte Esterase Negative (Negative) SARS-CoV-2, RNA, NAAT (NEGATIVE) 02/13/23 Range/Units 13:52 WBC (4.8-10.8) K/ul RBC (4.70-6.10) M/uL Hgb (14.0-18.0) g/dl Hct (42.0-52.0) % MCV (80.0-100.0) fL MCH (25.0-34.0) pg MCHC (32.0-36.0) g/dL RDW Std Deviation (36.4-46.3) fL RDW Coeff of Nita (11.5-14.5) % Plt Count (130-400) K/uL MPV (9.4-12.4) fL Immature Gran % (Auto) % Neut % (Auto) % Lymph % (Auto) % [place] % (Auto) % Eos % (Auto) % Baso % (Auto) % Neut # (Auto) (1.40-6.50) K/uL Lymph # (Auto) (1.2-3.4) K/uL [place] # (Auto) (0.11-0.59) K/uL Eos # (Auto) (0-0.50) K/uL Baso # (Auto) (0-0.2) K/uL Immature Gran # (Auto) (0.01-0.20) K/uL Sodium (136-145) mmol/L Potassium (3.5-5.1) mmol/L Chloride (98-107) mmol/L Carbon Dioxide (21-32) mmol/L Anion Gap (3-11) BUN (6-23) mg/dl Creatinine (0.6-1.4) mg/dl Est Cr Clr Drug Dosing ml/min Est GFR ( Amer) ml/min Est GFR (Non-Af Amer) ml/min BUN/Creatinine Ratio (10-20) Glucose (70-99(Fasting)) mg/dl Calcium (8.6-10.3) mg/dl Total Bilirubin (0.2-1.0) mg/dl AST (13-39) U/L ALT (7-52) U/L Alkaline Phosphatase (34-104) U/L Total Protein (6.0-8.3) gm/dl Albumin (3.4-5.0) gm/dl Globulin (2.5-4.0) gm/dl Albumin/Globulin Ratio (0.9-2) Lipase (11-82) U/L Urine Color Urine Appearance (Clear) Urine pH (4.5-7.5) Ur Specific [place] (1.000-1.030) Urine Protein (Negative) Urine Glucose (UA) (Negative) Urine Ketones (Negative) Urine Blood (Negative) Urine Nitrite (Negative) Urine Bilirubin (Negative) Urine Urobilinogen (Negative) Ur Leukocyte Esterase (Negative) SARS-CoV-2, RNA, NAAT NEGATIVE (NEGATIVE) Imaging Data Attestation: I personally reviewed and interpreted this imaging study as follows: My Impression: My interpretation of a noncontrast CT of the abdomen pelvis shows uncomplicated and acute appendicitis without abscess formation. Radiologist report was also reviewed with concurrence. Radiologist's Impression: Abdomen/Pelvis CT 02/13/23 11:55 CT abd pelvis wo con CLINICAL HISTORY: RLQ/R flank pain TECHNIQUE: Helical axial images of the abdomen and pelvis were obtained. Automated dose lowering techniques and/or adjustment according to patient size were utilized for this exam. This exam was performed without intravenous contrast. CT DOSE: 717.24 mGy.cm COMPARISON: Comparison is made to CT abdomen pelvis 10/14/2020 FINDINGS: Lower chest: Bibasilar atelectasis versus scarring is seen. Liver: Unremarkable. No focal lesions are seen. Gallbladder and biliary tree: No calcified gallstones. Normal caliber wall. No intra- or extrahepatic biliary ductal dilation. Pancreas: Unremarkable, no focal lesions. Spleen: Unremarkable. Adrenals: Unremarkable. Kidneys and ureters: Unremarkable. Bladder: Unremarkable. Reproductive organs: Unremarkable. Bowel: Thickening of the appendix is seen with an appendicolith, the appendix measures up to 13 mm in diameter. A duodenal diverticulum is seen. Lymph nodes Retroperitoneal: Unremarkable. Pelvic: Unremarkable. Mesenteric: Unremarkable. Peritoneum: Mild fat stranding is seen in the right lower quadrant about the appendix. No evidence of perforation or abscess. Vessels: Unremarkable. Abdominal wall: Unremarkable. Bones: Degenerative changes in the visualized spine. IMPRESSION: Findings are compatible with acute appendicitis without evidence of perforation or abscess formation. ACT 112: Negative or not required by law. Electronically signed by: Brett Luna M.D. 02/13/2023 12:41 PM MDM Narrative See ED Course section for further details of today's visit. The patient presents the emergency department with acute onset of right lower quadrant abdominal pain. CT imaging today does show evidence for an acute appendicitis. I had a high suspicion for possibility of renal colic secondary to ureteral calculus, however this is not seen on CT imaging. Patient does not evidence for free air or bowel obstruction. The patient is afebrile, but does have a notable leukocytosis. At this point, I do not suspect sepsis. Additional laboratory studies are not suggestive of pancreatitis, cholecystitis or hepatitis. Impression Acute appendicitis Discharge Plan Visit Data Chief Complaint: Abdominal Pain Stated Complaint: ABDOMINAL PAIN,VOMITING, ED Provider: Fransico Padron ED Midlevel Provider: Lawrence Cannon Discharge Problem: Acute appendicitis Discharge Instructions Interventions: ED Discharge Assessment Last Done: 02/13/23 13:57 Forms Stand Alone Forms: My [facility] [email or web address] Prescriptions Prescriptions: No Action albuterol sulfate 90 mcg/actuation HFA aerosol inhaler See Rx Instructions .ROUTE .COMPLEX Qty: 9 0RF Dose Instruction: INHALE 2 PUFFS BY MOUTH EVERY 6 HOURS NEEDED FOR SHORTNESS OF BREATH OR WHEEZING Rx Instructions: INHALE 2 PUFFS BY MOUTH EVERY 6 HOURS NEEDED FOR SHORTNESS OF BREATH OR WHEEZING multivitamin [One A Day] Tablet 1 tab PO DAILY acetaminophen [Tylenol Ex Str Arthritis Pain] 500 mg Tablet 500 mg PO Q4H PRN (Reason: pain) triamcinolone acetonide 0.5 % cream 1 applic TOP BID PRN (Reason: Other) Referrals Referrals: Blayne Machado MD [Primary Care Provider] -
[2023-02-13] MEDS ORDERED: PIPERACILLIN/TAZOBACTAM 4.5 GM in DEXTROSE 5% 100 ML IV ONE (13:25)
--- NOTE | 2023-02-13 13:29 | History & Physical Report ---
Date of Service February 13, 2023 Assessment & Plan (1) Acute appendicitis with localized peritonitis: Plan 62-year-old gentleman with acute appendicitis. White blood cell count 17. No evidence of perforation on CT scan. I discussed the risks and benefits of a laparoscopic, possible open appendectomy with him. All his questions were answered, he is agreeable to proceed. He has signed consent. Will take him to the operating room as soon as possible. History of Present Illness Primary Care Provider: Blayne Machado MD 62-year-old gentleman presents with 1 day history of severe periumbilical pain radiating to the right lower quadrant. He did have nausea and vomited twice today. He denies fevers or chills. He denies chest pain or shortness of breath. He has never had pain like this before. He has had a prior umbilical hernia repair. He does not take any blood thinners. Allergies Allergy/AdvReac Type Severity Reaction Status Date / Time oxycodone AdvReac Intermediate ITCHINESS Verified 06/07/22 07:59 Home Medications Medication Instructions Recorded Confirmed Type albuterol sulfate 90 mcg/actuation See Rx Instructions .Route 12/20/22 02/13/23 Rx aerosol inhaler .COMPLEX #9 grams acetaminophen 500 mg tablet 500 mg PO Q4H PRN pain 02/13/23 02/13/23 History multivitamin 1 tab PO DAILY 02/13/23 02/13/23 History triamcinolone acetonide 0.5 % 1 applic topical BID PRN Other 02/13/23 02/13/23 History topical cream Past Med/Surg History Medical History Abdominal discomfort Rossi's esophagus COPD (chronic obstructive pulmonary disease) Dysphagia GERD (gastroesophageal reflux disease) Hiatal hernia History of colitis Psoriatic arthritis Seizure x1 in 2006 - [facility] in [place] - "i had a small clot in my brain that made me have a seizure" - cause of clot? reports he was on AC x 3 weeks - no residual effects - no recurrence of seizures - no neurologist Septic prepatellar bursitis of left knee hx Surgical History History of ankle surgery left - harware present History of colonoscopy with polypectomy (~2017) Diverticular disease/polyps History of esophagogastroduodenoscopy (EGD) (~2019) History of herniorrhaphy umbilical History of left knee surgery for septic prepatellar bursitis left knee. History of lumbar surgery History of repair of ACL BL History of shoulder surgery Rt - hardware present History of tooth extraction Slow to wake up after anesthesia Family History Father Family history of diabetes mellitus Diabetes Cardiac disorder Mother Family history of diabetes mellitus Diabetes Cardiac disorder Other Asthma Social History Smoking Status: Current some day smoker Cigarettes Per Day: 4; Second Hand Exposure: Yes; Do You Dip or Chew Tobacco: Yes; Hx Alcohol Use: No Hx Substance Use: No Preferred Language: Macedonian Communication Ability: Effective Physical Therapy Resident Required: No Beliefs That Will Affect Care: None Current Living Situation: Spouse current occupational status: employed Feels Safe at Home: Yes Assistive Devices: Denture - Upper and Glasses Review of Systems Review of Systems: All systems reviewed & are unremarkable except as noted in HPI & below Physical Exam Constitutional: WD/WN, vitals as above Eyes: PERRL, conjunctivae normal, anicteric sclerae Neck: trachea midline, no thyromegaly Respiratory: normal respiratory effort; no respiratory distress and no labored breathing Cardiovascular: Rate/Rhythm: regular rate and regular rhythm Gastrointestinal (Abdomen): Inspection/Auscultation: abdomen normal to inspection; abdomen not distended Percussion/Palpation: + abdomen tender (Severe pain RLQ to palpation), + guarding (Voluntary right lower quadrant) and abdomen soft; abdomen not rigid Skin: no rashes, warm and dry Psychiatric: A+Ox3, euthymic affect Results & Data Results & Data Vital Signs (Past 12 Hours) Vital Signs Temp Pulse Pulse Resp BP Pulse Ox O2 Del Method 02/13/23 13:01 81 25 H 95 02/13/23 13:01 141/74 H 02/13/23 13:00 83 19 94 02/13/23 12:30 80 27 H 96 02/13/23 12:30 121/82 02/13/23 12:42 85 02/13/23 11:53 92 H 21 96 Room Air 02/13/23 11:36 36.9 C 102 H 18 124/73 98 Room Air Laboratory Results 02/13/23 02/13/23 Range/Units 11:50 11:50 WBC 17.23 H (4.8-10.8) K/ul RBC 4.50 L (4.70-6.10) M/uL Hgb 14.2 (14.0-18.0) g/dl Hct 41.0 L (42.0-52.0) % MCV 91.1 (80.0-100.0) fL MCH 31.6 (25.0-34.0) pg MCHC 34.6 (32.0-36.0) g/dL RDW Std Deviation 41.0 (36.4-46.3) fL RDW Coeff of Nita 12.3 (11.5-14.5) % Plt Count 364 (130-400) K/uL MPV 10.2 (9.4-12.4) fL Immature Gran % (Auto) 0.4 % Neut % (Auto) 75.9 % Lymph % (Auto) 16.7 % [place] % (Auto) 5.5 % Eos % (Auto) 0.9 % Baso % (Auto) 0.6 % Neut # (Auto) 13.10 H (1.40-6.50) K/uL Lymph # (Auto) 2.87 (1.2-3.4) K/uL [place] # (Auto) 0.94 H (0.11-0.59) K/uL Eos # (Auto) 0.15 (0-0.50) K/uL Baso # (Auto) 0.10 (0-0.2) K/uL Immature Gran # (Auto) 0.07 (0.01-0.20) K/uL Sodium 135 L (136-145) mmol/L Potassium 4.2 (3.5-5.1) mmol/L Chloride 106 (98-107) mmol/L Carbon Dioxide 22 (21-32) mmol/L Anion Gap 7 (3-11) BUN 18 (6-23) mg/dl Creatinine 0.70 (0.6-1.4) mg/dl Est Cr Clr Drug Dosing 105.2 ml/min Est GFR ( Amer) 118.9 ml/min Est GFR (Non-Af Amer) 102.6 ml/min BUN/Creatinine Ratio 25.7 H (10-20) Glucose 101 H (70-99(Fasting)) mg/dl Calcium 9.9 (8.6-10.3) mg/dl Total Bilirubin 0.8 (0.2-1.0) mg/dl AST 19 (13-39) U/L ALT 20 (7-52) U/L Alkaline Phosphatase 53 (34-104) U/L Total Protein 8.0 (6.0-8.3) gm/dl Albumin 4.8 (3.4-5.0) gm/dl Globulin 3.2 (2.5-4.0) gm/dl Albumin/Globulin Ratio 1.5 (0.9-2) Lipase 28 (11-82) U/L Diagnostic Findings CT abd pelvis wo con CLINICAL HISTORY: RLQ/R flank pain TECHNIQUE: Helical axial images of the abdomen and pelvis were obtained. Automated dose lowering techniques and/or adjustment according to patient size were utilized for this exam. This exam was performed without intravenous contrast. CT DOSE: 717.24 mGy.cm COMPARISON: Comparison is made to CT abdomen pelvis 10/14/2020 FINDINGS: Lower chest: Bibasilar atelectasis versus scarring is seen. Liver: Unremarkable. No focal lesions are seen. Gallbladder and biliary tree: No calcified gallstones. Normal caliber wall. No intra- or extrahepatic biliary ductal dilation. Pancreas: Unremarkable, no focal lesions. Spleen: Unremarkable. Adrenals: Unremarkable. Kidneys and ureters: Unremarkable. Bladder: Unremarkable. Reproductive organs: Unremarkable. Bowel: Thickening of the appendix is seen with an appendicolith, the appendix measures up to 13 mm in diameter. A duodenal diverticulum is seen. Lymph nodes Retroperitoneal: Unremarkable. Pelvic: Unremarkable. Mesenteric: Unremarkable. Peritoneum: Mild fat stranding is seen in the right lower quadrant about the appendix. No evidence of perforation or abscess. Vessels: Unremarkable. Abdominal wall: Unremarkable. Bones: Degenerative changes in the visualized spine. IMPRESSION: Findings are compatible with acute appendicitis without evidence of perforation or abscess formation.
[2023-02-13] MEDS ORDERED: PIPERACILLIN/TAZOBACTAM 4.5 GM/120 ML BAG IV STA (13:30)
[2023-02-13 14:19] LABS: Appearance Urine Clear (Clear); Bilirubin Urine Negative (Negative); Blood Urine Negative (Negative); Color Urine Dark Yellow; Glucose Urine UA Negative (Negative); Ketones Urine Negative (Negative); Leukocyte Esterase Urine Negative (Negative); Nitrite Urine Negative (Negative); Protein Urine Negative (Negative); Specific Gravity Urine 1.026 (1.000-1.030); Urobilinogen Urine Negative (Negative)
[2023-02-13] MEDS ORDERED: fentaNYL citrate PF 100 MCG/2 ML VIAL ONE (14:19)
[2023-02-13] MEDS ORDERED: MIDAZOLAM HCL 1 MG/ML 2ML VIAL ONE (14:19)
[2023-02-13] MEDS ORDERED: BUPIVACAINE/EPINEPHRINE 0.5% MPF 1:200,000 30 ML VIAL ONE (14:42)
--- NOTE | 2023-02-13 14:43 | Anesthesiology Consultation ---
Date of Service February 13, 2023 Assessment & Plan Chart Review Chart Review: Acceptable Risk for Surgery Consults Requested none ASA ASA3 Proposed Anesthesia Anesthesia Type: General Risk / Benefits Reviewed With: PT / POA / Parent / Guardian, Accepts Plan and Informed Consent Obtained History Surgery Operation Date: 02/13/23 15:30 Proposed Procedures p Laparoscopic Appendectomy - Vlad Chakraborty MD Height/Weight Height: 5 ft 8 in Weight: 66.3 kg Allergies Allergy/AdvReac Type Severity Reaction Status Date / Time oxycodone AdvReac Intermediate ITCHINESS Verified 06/07/22 07:59 Medications Home Medications Medication Instructions Recorded Confirmed Last Taken albuterol sulfate 90 mcg/actuation See Rx Instructions .Route 12/20/22 02/13/23 Unknown aerosol inhaler .COMPLEX #9 grams acetaminophen 500 mg tablet 500 mg PO Q4H PRN pain 02/13/23 02/13/23 Unknown multivitamin 1 tab PO DAILY 02/13/23 02/13/23 Unknown triamcinolone acetonide 0.5 % 1 applic topical BID PRN Other 02/13/23 02/13/23 Unknown topical cream NPO Date Last Intake of Fluids: 02/13/23 Time Last Intake of Fluids: 07:00 Last Intake of Fluids Comment: "coffee with cream" Date Last Intake of Solids: 02/12/23 Time Last Intake of Solids: 22:30 Past Medical History Medical History Abdominal discomfort Rossi's esophagus COPD (chronic obstructive pulmonary disease) Dysphagia GERD (gastroesophageal reflux disease) Hiatal hernia History of colitis Psoriatic arthritis Seizure x1 in 2005 - [facility] in [place] - "i had a small clot in my brain that made me have a seizure" - cause of clot? reports he was on AC x 3 weeks - no residual effects - no recurrence of seizures - no neurologist Septic prepatellar bursitis of left knee hx Exercise / Class Metabolic Activity II 4-5 Yardwork/Stairs/Walk up hill Past Family History Family History Father Family history of diabetes mellitus Diabetes Cardiac disorder Mother Family history of diabetes mellitus Diabetes Cardiac disorder Other Asthma Past Surgical History Surgical History History of ankle surgery left - [place] present History of colonoscopy with polypectomy (~2018) Diverticular disease/polyps History of esophagogastroduodenoscopy (EGD) (~2019) History of herniorrhaphy umbilical History of left knee surgery for septic prepatellar bursitis left knee. History of lumbar surgery History of repair of ACL BL History of shoulder surgery Rt - hardware present History of tooth extraction Slow to wake up after anesthesia Past Anesthesia History No Hx of Anesthesia Complications and No Family Hx of Anesthesia Complications History of PONV No Hx of PONV and No Hx of Motion Sickness Social History Smoking Status: Current some day smoker tobacco type: cigarettes Smoking cigarettes per day: 4 Do You Dip or Chew Tobacco: Yes Hx Alcohol Use: No Alcohol type: beer alcohol intake frequency: a few times a month Hx Substance Use: No substance use type: does not use Physical Exam Vital Signs Last Vital Signs Temp 36.6 C 02/13/23 14:05 Pulse 78 02/13/23 14:05 Resp 18 02/13/23 14:05 BP 122/77 02/13/23 14:05 Pulse Ox 99 02/13/23 14:05 O2 Del Method Room Air 02/13/23 14:05 ENMT Mouth: + dentition abnormality (missing lower back m olars), + dentures (upper) and + edentulous (upper); no TMJ abnormality Thyromental Distance: > or= 3.5 Finger Breadths Mallampati Class: II Neck normal visual inspection and trachea midline; neck extension not limited Respiratory normal respiratory effort Auscultation: lungs clear to auscultation bilaterally Cardiovascular Rate/Rhythm: regular rate and regular rhythm Heart Sounds: no murmur Musculoskeletal Spine: normal cervical ROM Extremities: full ROM of extremities Neurologic moves all extremities Psychiatric Orientation: alert and oriented x 3 Testing Laboratory Results 02/13/23 11:50 02/13/23 11:50 Urine Color Dark Yellow 02/13/23 13:52 Urine Appearance Clear (Clear) 02/13/23 13:52 Urine pH 5.0 (4.5-7.5) 02/13/23 13:52 Ur Specific [place] 1.026 (1.000-1.030) 02/13/23 13:52 Urine Protein Negative (Negative) 02/13/23 13:52 Urine Glucose (UA) Negative (Negative) 02/13/23 13:52 Urine Ketones Negative (Negative) 02/13/23 13:52 Urine Nitrite Negative (Negative) 02/13/23 13:52 Ur Leukocyte Esterase Negative (Negative) 02/13/23 13:52 Electrocardiogram Date: 10/28/21 Findings: + NSR @ (85)
[2023-02-13] MEDS ORDERED: ALBUT/IPRATROP 3MG/0.5MG NEB 3 ML VIAL INH PRN (14:45)
[2023-02-13] MEDS ORDERED: ePHEDrine sulfate 50 MG/ML AMP IV PRN (14:45)
[2023-02-13] MEDS ORDERED: ATROPINE SULFATE 0.1 MG/ML 10ML SYR IV PRN (14:45)
[2023-02-13] MEDS ORDERED: ONDANSETRON INJ 2 MG/ML 2 ML VIAL IV PRN ×2 (14:45→17:22)
[2023-02-13] MEDS ORDERED: MoRPHine SULFATE 10 MG/ML CARP/VIAL IV PRN (14:45)
[2023-02-13] MEDS ORDERED: MEPERIDINE HCL 25 MG/ML CARP/VIAL IV PRN (14:45)
[2023-02-13] MEDS ORDERED: SUGAMMADEX SODIUM 200 MG/2 ML VIAL IV ONE (15:00)
[2023-02-13] MEDS ORDERED: DEXAMETHASONE SOD INJ 4 MG/ML VIAL ONE (15:07)
[2023-02-13] MEDS ORDERED: ROCURONIUM BROMIDE 10 MG/ML 5 ML VIAL IV ONE (15:07)
[2023-02-13] MEDS ORDERED: LIDOCAINE 2% 2 ML VIAL/AMP(20MG/ML) INFIL ONE (15:07)
[2023-02-13] MEDS ORDERED: PROPOFOL IV EMULSION 10 MG/ML 20 ML VIAL IV ONE ×2 (15:07→15:32)
[2023-02-13] MEDS ORDERED: ONDANSETRON INJ 2 MG/ML 2 ML VIAL ONE (15:07)
--- NOTE | 2023-02-13 15:36 | Operative Report ---
Post Operative Report Pre & Post Diagnosis Operation Date: 02/13/23 15:30 Pre-Op Diagnosis: ABDOMINAL PAIN,VOMITING Post-Op Diagnosis: ABDOMINAL PAIN,VOMITING I identified the patient and participated in the time-out.: Yes Procedure Operation Date: 02/13/23 15:30 Actual Procedures p Laparoscopic Appendectomy(Not Applicable) - Vlad Chakraborty MD Surgeon Vlad Chakraborty MD Laundry Housekeeper DAPHNE Jessica assisted with tissue retraction, camera op, closure Estimated Blood Loss 5 Findings Consistent with Post-Op Diagnosis Acute appendicitis Specimens Appendix Drains None Anesthesia Type General Complications No immediate complications Description of Procedure The patient was taken to the operating room, and placed supine on the operating table. A timeout was performed, perioperative antibiotics were administered, SCD boots were placed. After adequate anesthesia and analgesia was obtained, the abdomen was prepped and draped in the normal sterile fashion. A 1 cm incision was made in the supraumbilical region and carried down to the level of the fascia. A trach hook was used to grasp the fascia and elevated and a varies needle was used to enter the abdominal cavity. The abdomen was insufflated to a pressure of 15 mmHg, and a 5 mm trocar was placed in this location. A 5 mm 30 degree laparoscope was placed into the abdominal cavity, and the abdomen was surveyed. The patient was placed in Trendelenburg and slightly to the left. One 5 mm trocar was placed in the right upper quadrant, and one 12 mm trocar was placed in the left lower quadrant under direct visualization. The right colon was identified and traced down to the cecum. The appendix was identified and elevated anteriorly and medially. A window was created at the base of the appendix with a [place] dissector. The Endo PAULINA stapler was used to transect the appendix at its base through noninflamed tissue, and subsequently the mesoappendix. The appendix was placed in an Endo Catch bag, and removed via the left lower quadrant port site. Attention was turned to hemostasis, which was excellent. The abdomen was copiously irrigated and suctioned free, and again hemostasis was found to be excellent. All trochars removed under direct visualization. The abdomen was desufflated. The fascia in the 12 mm port site was closed with a 0 Vicryl suture. The skin was closed with a running 4-0 Monocryl subcuticular stitch. Dermabond was applied. The patient tolerated the procedure without complication, and was transferred in stable condition to the PACU. All instrument, needle, and sponge counts were correct at the end of the case. My dermatology physician assistant was necessary throughout the procedure for tissue retraction, possible camera operation, and closure of the wounds. I understand that section 1842(b)(7)(D) of the Social Security act generally prohibits Medicare physician fee schedule payment for the services of assistants at surgery in teaching hospitals when qualified residents are available to furnish such services. I certify that the services for which payment is claimed were medically necessary and that no qualified resident was available to perform the services. I further understand that these services are subject to postpayment review by the Medicare carrier. I attest to the content of the Intraoperative Record and any orders documented therein. Any exceptions are noted below.
[2023-02-13] MEDS: fentaNYL citrate PF 100 MCG/2 ML VIAL IV PRN ×2 (16:01→16:06)
--- NOTE | 2023-02-13 16:10 | Anesthesiology Progress Note ---
Date of Service February 13, 2023 Anesthesia Post Procedure Vital Signs Vital Signs: Temp Pulse Pulse Pulse Resp BP BP 02/13/23 15:55 77 16 106/71 02/13/23 15:45 36.3 C L 76 17 110/69 02/13/23 13:31 91 H 26 H 02/13/23 13:31 131/82 02/13/23 13:30 89 18 02/13/23 14:05 36.6 C 78 18 122/77 02/13/23 13:57 78 19 131/82 02/13/23 13:01 81 25 H 02/13/23 13:01 141/74 H 02/13/23 13:00 83 19 02/13/23 12:30 80 27 H 02/13/23 12:30 121/82 02/13/23 12:42 85 02/13/23 11:53 92 H 21 02/13/23 11:36 36.9 C 102 H 18 124/73 Pulse Ox O2 Del Method O2 Flow Rate 02/13/23 15:55 100 Oxymask 10 02/13/23 15:45 98 Oxymask 10 02/13/23 13:31 02/13/23 13:31 02/13/23 13:30 02/13/23 14:05 99 Room Air 02/13/23 13:57 98 Room Air 02/13/23 13:01 95 02/13/23 13:01 02/13/23 13:00 94 02/13/23 12:30 96 02/13/23 12:30 02/13/23 12:42 02/13/23 11:53 96 Room Air 02/13/23 11:36 98 Room Air Pain Intensity Right Lower Abdomen: Pain Intensity: 9 Transfer of Care Handoff Completed per policy Notes Mental Status: alert / awake / arousable Patient Amnestic to Procedure: Yes Nausea / Vomiting: adequately controlled Pain: adequately controlled Airway Patency, RR, SpO2: stable & adequate BP & HR: stable & adequate Hydration State: stable & adequate Anesthetic Complications: no major complications apparent and Pt Satisfied with anesthetic care
[2023-02-13] MEDS ORDERED: PROMETHAZINE HCL 12.5 MG in SODIUM CHLORIDE 0.9% 50 ML IV PRN (17:22)
[2023-02-13] MEDS ORDERED: ACETAMINOPHEN 500 MG TAB PO PRN (17:22)
[2023-02-13] MEDS ORDERED: diphenhydrAMINE Capsule 25 MG CAP PO PRN (17:22)
[2023-02-13] MEDS ORDERED: MoRPHine SULFATE 2 MG/ML CARP IV PRN (17:22)
[2023-02-13] MEDS: oxyCODONE HCL IR 5 MG TAB (IMMEDIATE RELEASE) PO PRN (18:31)
[2023-02-13] MEDS: KETOROLAC 30 MG/ML VIAL IV PRN (19:30)
[2023-02-14] MEDS: oxyCODONE HCL IR 5 MG TAB (IMMEDIATE RELEASE) PO PRN ×2 (01:38→08:00)
[2023-02-14] MEDS ORDERED: ENOXAPARIN INJ 40 MG/0.4 ML SYR SQ SCH (08:00)
[2023-02-14] MEDS ORDERED: HYDROCODONE/ACETAMOPHEN 5/325MG TAB PO PRN ×2 (09:56)
[2023-02-14] MEDS: KETOROLAC 30 MG/ML VIAL IV PRN (10:17)
--- NOTE | 2023-02-14 12:21 | Surgery Progress Note ---
Date of Service February 14, 2023 Assessment & Plan (1) Acute appendicitis with localized peritonitis: Plan POD # 1 s/p laparoscopic appendectomy avss postop pain moderate no n,v tolerating diet Plan: Will change oxycodone to [place] IV Toradol now as patients pain not well controlled continue reg diet encouraged ambulating hallway if pain better controlled, likely home this afternoon early evening Patient re-examined at 3:00 pm, ambulated hallway, pain better controlled with [place] discharge instructions reviewed rx for [place] prn pain sent to pharmacy 2 week follow-up in office Discussed with DR. garcia who agrees with above. Admission and Anticipated Discharge Date Admission Date: February 13, 2023 Subjective feeling okay, pain with movement, coughing more in the LLQ incision site no n,v tolerated reg diet no chest pain or shortness of breath urinating without difficulty ambulating to bathroom Physical Exam Constitutional: WD/WN, vitals as above cooperative and comfortable; no acute distress and not ill appearing Respiratory: normal respiratory effort; no respiratory distress Gastrointestinal (Abdomen): Inspection/Auscultation: abdomen normal to inspection; abdomen not distended Percussion/Palpation: + abdomen tender (LLQ and at incision sites), + guarding (voluntary LLQ) and abdomen soft; abdomen not rigid and abdomen not firm Skin: no rashes, warm and dry Psychiatric: Orientation: alert and oriented x 3 Results & Data Vital Signs (Past 12 Hours) Vital Signs Temp Pulse Resp BP Pulse Ox O2 Del Method O2 Flow Rate 02/14/23 12:16 36.3 C L 86 18 141/83 H 96 Nasal Cannula 2 02/14/23 11:28 36.7 C 82 18 109/69 95 Room Air 02/14/23 07:05 36.7 C 74 18 105/65 96 Room Air 02/14/23 04:40 36.6 C 71 18 102/64 96 Room Air
--- NOTE | 2023-02-15 16:20 | Discharge Summary ---
Date of Service February 15, 2023 Admission HPI Per Admitting Provider 62-year-old gentleman presents with 1 day history of severe periumbilical pain radiating to the right lower quadrant. He did have nausea and vomited twice today. He denies fevers or chills. He denies chest pain or shortness of breath. He has never had pain like this before. He has had a prior umbilical hernia repair. He does not take any blood thinners. Principal Diagnosis acute appendicitis Discharge Data Allergies Allergy/AdvReac Type Severity Reaction Status Date / Time oxycodone AdvReac Intermediate ITCHINESS Verified 06/07/22 07:59 Procedures Performed Operation Date: 02/13/23 15:30 Actual Procedures p Laparoscopic Appendectomy(Not Applicable) - Vlad Chakraborty MD Ordered Studies 02/13/23 11:55 CT abd pelvis wo con Stat Hospital Course (1) Acute appendicitis with localized peritonitis: Patient was taken to operating room for laparoscopic appendectomy by Dr. Chakraborty on 02/13/2023. Patient found to have acute appendicitis without perforation or rupture. Patient tolerated procedure without difficulty and was transferred to recovery then to medical/surgical floor for postoperative care. Diet was advanced as tolerated, activity as tolerated, PO Oxycodone as needed for pain with IV Toradol and Morphine prn pain, antiemetics as needed. POD # 1 avss, postop pain moderate especially with coughing. Not well controlled with Oxycodone. Pain medication was changed to oral [place] and patient advised to take one dose of IV Toradol to get better pain management in order to ambulate. Pain better controlled in afternoon. Patient ambulated hallway several times. Patient was discharged home on POD # 1 in stable condition. Total Time Total Time Spent Total Time Spent (In Minutes): 30 minutes Total Time Includes: Examination of the Patient, Discharge Planning, Medication Reconciliation and Communication With Other Providers Discharge Plan Discharge Items Patient Disposition: Home - Self-Care Reason For Visit: POSTOP ACUTE APPENDICITIS Discharge Diagnosis: Acute appendicitis Activity: Per Instructions section Non-emergency contact: Primary Care Provider Call non-emergency contact if: you have any medication questions, your pain is not controlled, your pain is worsening, your pain is concerning for you, you have a fever, your temperature is above 101, your wound has increased redness, your wound has increased drainage and your wound pain has increased Follow-up/Referrals: Vlad Chakraborty MD [Physician] - (2 weeks ) Blayne Machado MD [Primary Care Provider] - Diet: Regular Addtl Attending Provider Instructions: Post-Surgical ~Discharge Instructions Activity Recommendations: - lifting limitation: (20 pounds for 3 weeks), - exercise/sex/sports limit: (nonstrenuous for 2 weeks), - driving or machine use limit: (none for 1 week or until pain free and no longer taking narcotic pain medication), - Shower/bathe limit: (may shower beginning tomorrow) Diet: - Resume previous diet SPECIAL CARE INSTRUCTIONS: - May shower tonight. Let water run over area and pat dry. - Surgical glue will fall off on its own, do not pick at it. - Call the surgeon's office with any questions or concerns - - (ex. temperature higher than 101 degrees F, excessive bleeding or pain). MEDICATIONS: - Resume previous medications unless instructed otherwise by your surgeon. _ May alternate extra strength Tylenol and Ibuprofen as needed for mild to moderate pain -650 mg Tylenol every 6 hours as needed - Ibuprofen 600 mg every 6 hours as needed (take with food) - [place] 1 every 6 hours, as needed for moderate to severe pain - Recommend daily stool softener(Colace) while taking narcotic pain medication to prevent constipation or straining. Drink plenty of water daily. FOLLOW UP VISIT: - If not already scheduled, please call the office to schedule a two week follow-up appointment. Office number Pending Studies at Discharge: Yes (appendix pathology, will be reviewed at postop visit) Stand-Alone Forms: My [facility] [employer], Pain - Opioid Pain Management, Work/School Release, Smoking Cessation Medications and DC Order Prescriptions: New hydrocodone-acetaminophen 5-325 mg tablet 1 tab PO Q6H PRN (Reason: pain) Qty: 10 0RF Continued albuterol sulfate 90 mcg/actuation HFA aerosol inhaler See Rx Instructions .ROUTE .COMPLEX Qty: 9 0RF Dose Instruction: INHALE 2 PUFFS BY MOUTH EVERY 6 HOURS NEEDED FOR SHORTNESS OF BREATH OR WHEEZING Rx Instructions: INHALE 2 PUFFS BY MOUTH EVERY 6 HOURS NEEDED FOR SHORTNESS OF BREATH OR WHEEZING multivitamin Tablet 1 tab PO DAILY acetaminophen 500 mg Tablet 500 mg PO Q4H PRN (Reason: pain) triamcinolone acetonide 0.5 % cream 1 applic TOP BID PRN (Reason: Other) Discharge Orders: Discharge Order (Routine); Ordered 02/14/23 Ordered By: Marge Charles/Other Patient Handouts: DVT Post Op Prevention Admission Data Admit Date/Time: 02/13/23 15:38 Attending Provider: Vlad Chakraborty Admit Provider: Vlad Chakraborty Primary Care Provider: Blayne Machado Other Interventions: Discharge Summary Assessment (RN) Last Done: 02/14/23 15:20
== END 2023-02-14 16:06 | disposition home or self-care (01) ==
LOC: ED 11:33 → 3E 11:33